=== PATIENT | female | born 1960 | race Caucasian/White ===

== ENCOUNTER 2020-10-27 15:42 | Outpatient (CLI) | payer OTHER, SELFPAY ==
--- NOTE | ~2020-10-27 | MM_ITS ---
EXAMINATION: MM screening baljinder BI w tiffany HISTORY: Screening mammogram TECHNIQUE: Craniocaudal and mediolateral oblique 3-D tomosynthesis images were obtained and synthetic 2-D images were generated. CAD analysis was submitted and interpreted. COMPARISON: 09/09/2019, 06/04/2018, 02/20/2017, 02/18/2016 bilateral digital screening mammogram examina tions BREAST PARENCHYMAL COMPOSITION: There are scattered areas of fibroglandular density. FINDINGS: There is a biopsy marker on the right; history of prior bilateral benign breast biopsies. There are numerous calcifications in both breasts. No malignant calcifications are evident. There is no evidence of suspicious mass, calcification, or architectural distortion to suggest malig annita in either breast. There has been no suspicious interval change. IMPRESSION: 1. No mammographic evidence of malignancy. 2. Recommend routine screening mammography in one year. BI-RADS Category 2: Benign finding(s). Reviewed, dictated and finalized at location A. SHAKER
== END 2020-10-27 15:43 | disposition home or self-care (01) ==
PROVIDERS: PCP Internal Medicine; Visit Provider Obstetrics & Gynecology
DX: Z12.31 Encounter for screening mammogram for malignant neoplasm of breast (principal)
CPT/HCPCS: 77063; 77067

== ENCOUNTER 2020-12-20 14:31 | Outpatient (CLI) | payer OTHER, SELFPAY ==
--- NOTE | ~2020-12-20 | MR_ITS ---
EXAMINATION: MR lumbar spine wo/w con DATE: 12/20/2020 15:41 INDICATION: Lumbar spinal stenosis. TECHNIQUE: Magnetic resonance imaging (MRI) of the lumbar spine was performed without and with 14 mL MultiHance intravenous contrast. Sequences included sagittal T2-weighted FSE, sagittal T2-weighted FS FSE, and sagittal and axial T1-weighted FSE. Postcontrast sequences included axial T2-weighted FSE a nd axial and sagittal T1-weighted FS FSE. COMPARISON: Lumbar spine MRI 11/29/17 FINDINGS: Bone alignment is normal. There are Schmorl's nodes at most levels. There is mildly decreas ed disc height at L2-L3, L3-L4, and L4-L5. The distal spinal cord signal intensity is normal. The con us medullaris is at L1. There are cysts in the kidneys measuring up to 10 mm on the left. The followi ng disc levels are specifically discussed: L1-L2: The disc does not extend beyond the endplate margin. There is mild bilateral facet joint osteo arthritis. There is no neural foraminal stenosis. There is no central canal stenosis. L2-L3: The disc is bulging and has an annular fissure. There is mild bilateral facet joint osteoarthr itis. There is mild bilateral neural foraminal stenosis. There is mild central canal stenosis. L3-L4: The disc is bulging and has an annular fissure. There is mild bilateral facet joint osteoarthr itis. There is mild right and moderate left neural foraminal stenosis. There is mild central canal st enosis. L4-L5: The disc is bulging and has an annular fissure. There is severe bilateral facet joint osteoart hritis. There is moderate bilateral neural foraminal stenosis. There is mild central canal stenosis. L5-S1: The disc does not extend beyond the endplate margin. There is severe bilateral facet joint ost eoarthritis. There is mild bilateral neural foraminal stenosis. There is no central canal stenosis. IMPRESSION: 1. Moderate lumbar spondylosis, stable from 11/29/17. Reviewed, dictated and finalized at location A. CTOR COMMUNICATIONS
[2020-12-20 15:09] LABS: Estimated Glomerular Filt Rate > 60
== END 2020-12-20 14:32 | disposition home or self-care (01) ==
PROVIDERS: Family Provider Internal Medicine; PCP Internal Medicine; Visit Provider Obstetrics & Gynecology
DX: M48.061 Spinal stenosis, lumbar region without neurogenic claudication (principal); M47.896 Other spondylosis, lumbar region
CPT/HCPCS: 72158; A9577

== ENCOUNTER 2021-01-09 10:42 | Emergency (ER) | payer OTHER, SELFPAY ==
--- NOTE | ~2021-01-09 | XR_ITS ---
XR chest 2V DATE: 01/09/2021 11:11 INDICATION: Cough and congestion for 3 days. Smoker. TECHNIQUE: PA and lateral views COMPARISON: 02/12/2019 CT pulmonary scan 02/16/2019 portable AP chest FINDINGS: Heart size is normal. No hilar or mediastinal enlargement. The lungs are hyperinflated but clear of infiltrate or consolidation. No pleural effusion or pulmonar y vascular congestion or pneumothorax. Diffuse osteopenia Status post cholecystectomy IMPRESSION: Bilateral hyperinflation consistent with COPD No active cardiopulmonary disease Reviewed, dictated and finalized at location A. ANCE OFFICER
[2021-01-09 10:50] VITALS: BP 145/97; PULSE 82; RESP 16; TEMP 37.5; O2SAT 100
--- NOTE | 2021-01-09 10:59 | ED.GENADULT ---
HPI - General Adult General Chief complaint: Upper Respiratory Infection Stated complaint: headache/diarrhea/nausea/chest congestion/sinus Source: patient Mode of arrival: ambulatory Limitations: no limitations History of Present Illness HPI narrative: Patient presents for evaluation and treatment of respiratory symptoms for the last 2 days. She reports sinus congestion, nonproductive cough, shortness of breath at rest and with exertion, all fever of approximately 100.1 ?F. She has also experienced nausea and diarrhea. She works at [employer] and had Covid PCR testing done 2 days ago which resulted is negative. She does smoke approximately 1 pack/day but states it is difficult to smoke at this time secondary to her symptoms. She did not receive a Covid vaccination. She recently cared for one pt that was COVID positive denies any other identified recent sick contacts. No additional complaints or concerns. Related Data Home Medications Medication Instructions Recorded Confirmed alprazolam 01/09/21 Allergies Allergy/AdvReac Type Severity Reaction Status Date / Time No Known Allergies Allergy Verified 02/16/19 08:23 Review of Systems Review of Systems: Narrative: CONSTITUTIONAL: Reports fever. Denies, chills, or sweats. EYES: Denies visual changes, redness, or discharge. ENT: Reports sinus congestion. Denies sore throat, or otalgia. CARDIOVASCULAR: Denies chest pain, palpitations, or edema. RESPIRATORY: Reports nonproductive cough and mild shortness of breath GASTROINTESTINAL: Reports nausea and diarrhea. Denies vomiting and abdominal pain. GENITOURINARY: Denies dysuria or hematuria. SKIN: Denies rash or itching. MUSCULOSKELETAL: Denies back pain, joint pain, or myalgia. NEUROLOGIC: Denies headache, numbness, dizziness, or weakness. PSYCHIATRIC: Denies anxiety or depression. [facility] Past Medical History Medical History Anxiety History of tobacco use Surgical History Surgical History H/O: hysterectomy History of cholecystectomy Family History Family History Father Cirrhosis Other Cerebrovascular accident Family history of alcoholism Family history of cardiovascular disease Family history of malignant neoplasm Family history of malignant neoplasm of ovary Social History Social History (Updated 01/09/21 @ 11:03 by STACEY Cage, JOSE ELIAS) Smoking packs per day: 1 Smoking cigarettes per day: 20.0 Smoking status: Current every day smoker Tobacco type: cigarettes Alcohol intake: never Substance use: never Living arrangements: with family 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 HEAD: Normocephalic, atraumatic. EYES: PERRLA and EOMI. ENT: Nares clear, no rhinorrhea or epistaxis. Mucous membranes moist. Oropharynx without tonsillar hypertrophy exudate or other lesions. Bilateral TMs pearly cunningham nonbulging NECK: Supple. No adenopathy or masses. No carotid bruits or JVD CHEST: Clear to auscultation. No respiratory distress. No wheezes rales or rhonchi HEART: Regular rate and rhythm. No murmur heard. Normal peripheral pulses. ABDOMEN: Soft, nontender, nondistended, normal active bowel sounds. EXTREMITIES: Normal range of motion. No edema. SKIN: Warm, dry, no rash. NEURO: No focal deficits. Alert and oriented x3. PSYCH: Normal mood and affect. Course Course Emergency Course: This is a 60-year-old female with history of tobacco use who presents with 2-day history of respiratory symptoms. Chest x-ray was consistent with changes related to COPD. Influenza was negative. Covid nega
[2021-01-10 19:35] LABS: SARS-CoV-2 RNA PCR Negative
== END 2021-01-09 11:57 | disposition home or self-care (01) ==
PROVIDERS: Emergency Provider Nurse Practitioner; PCP Internal Medicine
DX: B34.9 Viral infection, unspecified (principal); Z20.822 Contact with and (suspected) exposure to COVID-19; F17.210 Nicotine dependence, cigarettes, uncomplicated; F41.9 Anxiety disorder, unspecified
CPT/HCPCS: 71046; 87426; 87804; 99213; C9803; G0463; U0003; U0005

== ENCOUNTER 2021-05-05 15:37 | Outpatient (CLI) | payer OTHER, SELFPAY ==
--- NOTE | ~2021-05-05 | XR_ITS ---
EXAMINATION: XR shoulder LT min 2V DATE: 05/05/2021 15:57 INDICATION: Left shoulder pain. TECHNIQUE: 4 views of left shoulder were obtained. COMPARISON: None. FINDINGS: Bone alignment is normal. No fracture. Glenohumeral joint is normal. There is mild acromioc lavicular joint osteoarthritis. IMPRESSION: 1. Mild acromioclavicular joint osteoarthritis. Reviewed, dictated and finalized at location A.
== END 2021-05-05 15:38 | disposition home or self-care (01) ==
PROVIDERS: PCP Internal Medicine; Visit Provider Internal Medicine
DX: M19.012 Primary osteoarthritis, left shoulder (principal)
CPT/HCPCS: 73030

== ENCOUNTER 2021-08-22 11:22 | Emergency (ER) | payer OTHER, SELFPAY ==
--- NOTE | ~2021-08-22 | XR_ITS ---
EXAMINATION: XR chest 1V portable EXAM DATE: 08/22/2021 12:45 INDICATION: Cough and chest pain. TECHNIQUE: Portable AP frontal chest x-ray was obtained. Comparison is made to prior examination from 01/09/2021. FINDINGS: The lungs are clear. There are no pleural effusions. The cardiomediastinal silhouette is within normal limits. There is no pneumothorax suspected. The bones and soft tissues are unremarkab le. There is no significant interval change. There are cholecystectomy clips. IMPRESSION: No acute cardiopulmonary findings. Reviewed, dictated and finalized at location A.
[2021-08-22 11:25] VITALS: BP 158/80; PULSE 65; RESP 20; TEMP 36.7; O2SAT 99
--- NOTE | 2021-08-22 11:35 | ECG_ITS ---
Measurements Intervals [place] Rate: 68 P: 68 ME: 126 QRS: 88 QRSD: 86 T: 53 QT: 396 QTc: 424 Interpretive Statements SINUS RHYTHM MINIMAL Q WAVES- INFERIOR LEADS BORDERLINE ST ABNORMALITY- ANTEROLAT/INF LEADS BORDERLINE ECG Electronically Signed On 08-22-2021 13:53:18 CDT by Sadiq Arias D.O.
[2021-08-22 12:07] LABS: Basophils Absolute Auto 0.07 K/mm3 (0.00-0.10); Basophils Percent Auto 0.6 % (0.0-1.0); Eosinophils Absolute Auto 0.07 K/mm3 (0.02-0.50); Eosinophils Percent Auto 0.6 % (1.0-6.0); Hematocrit 41.2 % (35.0-49.0); Hemoglobin 13.8 g/dL (12.0-15.0); Immature Granulocyte Absolute 0.05 K/mm3 (0.00-0.00); Immature Granulocyte Percent A 0.4 % (0.0-0.0); Immature Platelet Fraction Pct 4.1 % (1.0-7.0); Lymphocytes Percent Auto 28.6 % (18.0-42.0); Mean Corpuscular HGB Conc 33.5 g/dL (32.0-36.0); Mean Corpuscular Volume 92.6 fL (78.0-102.0); Mean Platelet Volume 10.4 fl (9.2-11.8); Monocytes Absolute Auto 0.45 K/mm3 (0.10-0.90); Monocytes Percent Auto 3.8 % (2.0-11.0); Neutrophils Absolute Auto 7.9 K/mm3 (1.7-7.2); Platelet Count Result 316 K/mm3 (150-420); Red Blood Count 4.45 M/mm3 (4.20-5.40); Red Cell Distribution Width 12.7 % (11.6-14.4); White Blood Count 11.9 K/mm3 (4.8-10.8)
[2021-08-22] MEDS: NITROGLYCERIN SL 0.4 MG TABLET SUBLINGUAL (12:14)
[2021-08-22] MEDS: SODIUM CHLORIDE 0.9% IV 500 ML 999 ML IV CONT (12:16)
[2021-08-22] MEDS: ASPIRIN 325 MG ENTERIC TABLET PO (12:16)
[2021-08-22] MEDS: ONDANSETRON INJ 4 MG/2 ML VIAL IV PUSH (12:17)
[2021-08-22 12:26] LABS: SARS-CoV-2 Ag Negative (Negative)
[2021-08-22] MEDS: MORPHINE SULFATE (*CRX) 2 MG/ML INJ IV PUSH (12:34)
[2021-08-22 12:38] LABS: Alanine Aminotransferase 25 U/L (14-59); Alkaline Phosphatase 95 U/L (46-116); Anion Gap 12 mmol/L (8-16); Aspartate Amino Transferase 19 U/L (15-37); Bilirubin,Total 0.3 mg/dL (0.00-1.00); Blood Urea Nitrogen 11 mg/dL (7-18); Calcium 9.3 mg/dL (8.5-10.1); Carbon Dioxide 24 mmol/L (21-32); Chloride 106 mmol/L (98-108); Estimated CRCL calculation 67 ml/min; Estimated Glomerular Filt Rate > 60; Glucose 99 mg/dL (70-99); Osmolality Calculated 293 mOsm/kg (285-295); Potassium 4.1 mmol/L (3.5-5.1); Sodium 142 mmol/L (136-145); Total Protein 7.4 g/dL (6.4-8.2); Troponin I 4.8 ng/L (0.00-60.4)
[2021-08-22 12:53] LABS: Add Urine Microscopic? YES; Appearance Urine Clear (Clear); Bilirubin Urine Negative (Negative); Blood Urine Negative (Negative); Color Urine Light Yellow (Yellow); Glucose Urine UA Negative (Negative); Ketones Urine Negative (Negative); Leukocyte Esterase Ur Trace (Negative); Nitrate Urine Negative (Negative); Protein Urine Negative (Negative); Specific Grav Ur <= 1.005 (1.010-1.020); Urobilinogen Urine 0.2 mg/dL (0.2-1.0); pH Urine 6.5 (5.0-8.0)
[2021-08-22 12:58] LABS: RBC Urine None seen /hpf (0-2); WBC Urine 0-3 /hpf (0-3)
[2021-08-22 12:58] LABS: NT Pro B Type Natriuretic Pept 85 pg/mL (0-125)
[2021-08-22 12:59] LABS: Bacteria Urine Trace /hpf; Squamous Epithelial Cell Urine Rare /hpf (Few)
[2021-08-22 13:05] VITALS: BP 134/72; PULSE 62; RESP 18; TEMP 36.6; O2SAT 100
--- NOTE | 2021-08-22 13:51 | ED.CHESTPAIN ---
HPI - Chest Pain General Chief Complaint: Chest Pain Stated Complaint: tightness in chest, + Covid exposure Time Seen by Provider: 08/22/21 11:26 Source: patient and RN notes reviewed Mode of arrival: ambulatory Limitations: no limitations History of Present Illness MD complaint: chest pain and other (mild dizziness and nausea. no acute SOB, fever or GI loss.) Onset (ago): day(s) (1) Timing of current episode: episodic Prior episodes: No Onset: during rest Pain location: left chest Pain radiation: left shoulder Severity: mild Pain scale (0-10): 5 Quality: tightness and heaviness Relieving factors: nothing Exacerbating factors: nothing Associated symptoms: nausea Treatment prior to arrival: none Risk Factors Thoracic aortic dissection risk factors: none Related Data Home Medications Medication Instructions Recorded Confirmed alprazolam 0.5 mg PO BID 01/09/21 08/22/21 Allergies Allergy/AdvReac Type Severity Reaction Status Date / Time No Known Allergies Allergy Verified 08/22/21 11:41 Review of Systems Review of Systems: All systems reviewed & are unremarkable except as noted in HPI and below Cardiovascular: Cardiovascular: Reports chest pain Neurologic: Reports dizziness PMFSH Past Medical History Medical History Anxiety Chest pain Gastritis History of tobacco use Surgical History Surgical History H/O: hysterectomy History of cholecystectomy Family History Family History Father Cirrhosis Other Cerebrovascular accident Family history of alcoholism Family history of cardiovascular disease Family history of malignant neoplasm Family history of malignant neoplasm of ovary Social History Social History Smoking packs per day: 1 Smoking cigarettes per day: 20.0 Smoking status: Current every day smoker Tobacco type: cigarettes Alcohol intake: never Substance use: never 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 Gender identity (if verbalized by the patient): Female Sexual Orientation (if Verbalized by the Patient): Straight or Heterosexual Spiritual care concerns: No Exam Const: General: no acute distress Nutritional Appearance: well nourished Orientation/consciousness: patient oriented x3 HENMT: Ears: external ears normal and TM's normal bilaterally General nose exam: Normal external nose present and Normal nares present Mouth: Yes moist mucous membranes Eyes: Conjunctivae: conjunctivae normal Pupils: Equal, round and reactive pupils present EOM: EOMs intact bilaterally Neck: Neck: normal visual inspection and no lymphadenopathy Chest: Chest palpation & inspection: normal inspection of the chest Resp: Effort & Inspection: normal respiratory effort Auscultation: clear to auscultation bilaterally Cardio: Rate: regular rate Rhythm: regular rhythm GI: GI Palp: Yes Soft to palpation and No Tenderness to palpation present (GI) : General: Yes no CVA tenderness Back/Spine/Pelvis: Back: no CVA tenderness Skin: General skin exam: normal color Rashes: no rashes Neuro: General: patient oriented x3, moves all extremities, no meningeal signs, no focal motor deficits and CN's II-XI intact bilaterally Extrem: General: normal to inspection and no pedal edema Psych: Appearance: grossly normal and well kempt Mental Status: mental status grossly normal Affect: normal affect Attitude: cooperative Thought content: Yes Normal thought content present Course Course Emergency Course: Pt had less chest pain, nausea and dizziness in the ED. VSS. Home, see discharge orders. Reevaluation(s) Reevaluation #1: Mild residual chest pain txed with IV morphine. Date: 08/22/21 Time: 12:22 Vital Signs Vital signs: Vital Signs Temperature 36.7 C 08/22/21 11:25 Pulse Rate 65 08/22/21 11:2
[2021-08-22 13:58] VITALS: BP 125/80; BP 147/84; PULSE 60; PULSE 65; RESP 20; TEMP 36.6; O2SAT 100
[2021-08-22 14:26] LABS: Troponin I < 4.0 ng/L (0.00-60.4)
== END 2021-08-22 14:06 | disposition home or self-care (01) ==
PROVIDERS: Emergency Provider Emergency Medicine; PCP Internal Medicine
DX: R07.9 Chest pain, unspecified (principal); K29.70 Gastritis, unspecified, without bleeding; N39.0 Urinary tract infection, site not specified; Z20.822 Contact with and (suspected) exposure to COVID-19
CPT/HCPCS: 36415; 71045; 80053; 81001; 83880; 84484; 85025; 85055; 87426; 93005; 96374; 96375; 99283; 99284; A9270; C9803; J2270; J2405; J7040

== ENCOUNTER 2021-10-10 08:55 | Outpatient (CLI) | payer OTHER, SELFPAY ==
--- NOTE | 2021-10-10 | EST_ITS ---
Patient Info Name: Brianna Chi Age: 61 years : 1960 Gender: Female Ht: 63 in Wt: 163 lbs BSA: 1.84 m2 Exam Date: 10/10/2021 10:06 AM Exam Location: [facility] Stress Patient Status: Outpatient Admit Date: 10/10/2021 Staff Ordering Physician: Ray Howard MD Attending Provider: Ray Howard MD Exercise Technologist: Diana Franco RDCS Exercise Physician: Elmo Oneal MD Exam Type: CA stress test treadmill w NM Study Info Indications R07.89 - Other chest pain A treadmill exercise stress test was performed. Summary 1. Please correlate with nuclear medicine images, reported separately. 2. Hypertensive BP response to exercise. 3. Non-diagnostic ECG changes with exercise which does not meet strict criteria for ischemia. 4. Poor exercise capacity for age. Protocol: [facility] Stress ECG Details Stage: REST Duration (min): 0 min : 52 sec Speed (mph): 0.0 Grade (%): 0 HR (bpm): 67 SBP (mmHg): 142 DBP (mmHg): 81 METS: --- Stage: REST Duration (min): 13 min : 14 sec Speed (mph): 0.0 Grade (%): 0 HR (bpm): 74 SBP (mmHg): 142 DBP (mmHg): 81 METS: --- Stage: STAGE 1 Duration (min): 1 min : 0 sec Speed (mph): 1.7 Grade (%): 10 HR (bpm): 100 SBP (mmHg): 142 DBP (mmHg): 81 METS: --- Stage: STAGE 1 Duration (min): 2 min : 0 sec Speed (mph): 1.7 Grade (%): 10 HR (bpm): 121 SBP (mmHg): 142 DBP (mmHg): 81 METS: --- Stage: STAGE 1 Duration (min): 3 min : 0 sec Speed (mph): 1.7 Grade (%): 10 HR (bpm): 138 SBP (mmHg): 214 DBP (mmHg): 114 METS: --- Stage: RECOVERY Duration (min): 0 min : 59 sec Speed (mph): 0.0 Grade (%): 0 HR (bpm): 134 SBP (mmHg): 214 DBP (mmHg): 114 METS: --- Stage: RECOVERY Duration (min): 1 min : 59 sec Speed (mph): 0.0 Grade (%): 0 HR (bpm): 111 SBP (mmHg): 192 DBP (mmHg): 105 METS: --- Stage: RECOVERY Duration (min): 2 min : 59 sec Speed (mph): 0.0 Grade (%): 0 HR (bpm): 99 SBP (mmHg): 193 DBP (mmHg): 95 METS: --- Stage: RECOVERY Duration (min): 3 min : 59 sec Speed (mph): 0.0 Grade (%): 0 HR (bpm): 93 SBP (mmHg): 193 DBP (mmHg): 95 METS: --- Stage: RECOVERY Duration (min): 4 min : 59 sec Speed (mph): 0.0 Grade (%): 0 HR (bpm): 88 SBP (mmHg): 170 DBP (mmHg): 91 METS: --- Stage: RECOVERY Duration (min): 5 min : 17 sec Speed (mph): 0.0 Grade (%): 0 HR (bpm): 84 SBP (mmHg): 170 DBP (mmHg): 91 METS: --- Rest HR: 74 bpm Peak HR: 139 bpm Rest Sys BP: 142 mmHg Peak Sys BP: 214 mmHg Max Pred HR: 158 bpm % Max Pred HR: 88 % Target HR: 134 bpm Max RPP: 29,746 bpm*mmHg Ross Score: -2 Target HR Summary: Patient's target heart rate was achieved BP Response: Patient exhibited a hypertensive response with stress Termination Reason: Dyspnea, Fatigue Car
--- NOTE | ~2021-10-10 | NM_ITS ---
EXAMINATION: NM stress w perf spect multi DATE: 10/10/2021 12:25 INDICATION: Chest pressure. TECHNIQUE: Rest images were obtained following intravenous administration of 10.7 mCi Tc99m tetrofosm in (Myoview). The patient performed an exercise activity. At peak exercise, 33.7 mCi Tc99m tetrofosmi n (Myoview) was administered intravenously, and stress images were obtained. Data was reconstructed i nto short axis and horizontal and vertical long axis SPECT images. Gated SPECT images were also obtai long. COMPARISON: Myocardial perfusion imaging 01/03/2011 FINDINGS: There is no definite reversible or fixed perfusion abnormality to suggest ischemia or infar ction. There is no segmental wall motion abnormality. Left ventricular ejection fraction measures > 70%. IMPRESSION: 1. No definite ischemia or infarct. 2. Normal left ventricular ejection fraction measuring >70%. Reviewed, dictated and finalized at location A. CEMENTER
== END 2021-10-10 08:56 | disposition home or self-care (01) ==
LOC: ANHCARD 08:59
PROVIDERS: PCP Internal Medicine; Visit Provider Internal Medicine Cardiovascular Disease
DX: R07.89 Other chest pain (principal)
CPT/HCPCS: 78452; 93017; A9502

== ENCOUNTER 2021-10-12 13:56 | Outpatient (CLI) | payer OTHER, SELFPAY ==
--- NOTE | ~2021-10-12 | US_ITS ---
EXAMINATION: US art doppler w press LE BI DATE: 10/12/2021 14:49 INDICATION: Peripheral arterial occlusive disease. TECHNIQUE: Segmental pressures and plethysmographic and Doppler waveforms of the brachial and lower e xtremity arteries were obtained. COMPARISON: None. FINDINGS: Right and left brachial artery pressures of 129 mm Hg and 133 mm Hg, respectively, are concordant (no rmal difference <= 30 mmHg). The right and left high-thigh pressure indices were unable to be obtaine d due to inability to occlude the vessels. The right ankle-brachial index (VIRGINIA) is 1.16 (normal >= 0.9-1). The right great toe-brachial index (T BI) is 0.86 (normal >= 0.6-0.8). The right lower extremity segmental pressure gradients are normal (n ormal gradients <= 20-30 mmHg between adjacent levels on the same leg or the same levels on the two l egs). Arterial waveforms are biphasic with brisk systolic upstrokes throughout the arteries of the ri ght lower limb. The left VIR[place]IA is 1.26. The left TBI is 0.89. The left lower extremity segmental pressure gradients are normal. Arterial waveforms are biphasic with brisk systolic upstrokes throughout the arteries of the left lower limb. IMPRESSION: 1. Normal VIRGINIA's and TBI's bilaterally. No significant occlusive disease. Reviewed, dictated and finalized at location A. MACHINE OPERATOR PRODUCTION
== END 2021-10-12 13:57 | disposition home or self-care (01) ==
LOC: ANHIMG 13:59
PROVIDERS: PCP Internal Medicine; Visit Provider Internal Medicine Cardiovascular Disease
DX: I73.9 Peripheral vascular disease, unspecified (principal)
CPT/HCPCS: 93923

== ENCOUNTER 2021-12-07 15:46 | Outpatient (CLI) | payer OTHER, SELFPAY ==
--- NOTE | ~2021-12-07 | MM_ITS ---
EXAMINATION: MM screening baljinder BI w tiffany HISTORY: Screening TECHNIQUE: Craniocaudal and mediolateral oblique 3-D tomosynthesis images were obtained and synthetic 2-D images were generated. CAD analysis was submitted and interpreted. COMPARISON: Comparison to multiple prior studies sequentially, with oldest reviewed study dated 06/07. BREAST PARENCHYMAL COMPOSITION: There are scattered areas of fibroglandular density. FINDINGS: No significant change to bilateral benign-appearing breast calcifications. There is no evid ence of suspicious mass, calcification, or architectural distortion to suggest malignancy in either b reast. There has been no suspicious interval change. IMPRESSION: 1. No mammographic evidence of malignancy. 2. Recommend routine screening mammography in one year. BI-RADS Category 2: Benign finding(s). Reviewed, dictated and finalized at location A. TRUSS DETAILER
== END 2021-12-07 15:47 | disposition home or self-care (01) ==
LOC: ANHIMG 15:47
PROVIDERS: PCP Internal Medicine; Visit Provider Obstetrics & Gynecology
DX: Z12.31 Encounter for screening mammogram for malignant neoplasm of breast (principal)
CPT/HCPCS: 77063; 77067

== ENCOUNTER 2022-10-14 09:22 | Emergency (ER) | payer OTHER, SELFPAY ==
[2022-10-14 09:25] VITALS: BP 144/80; PULSE 61; RESP 16; TEMP 36.4; O2SAT 99
--- NOTE | 2022-10-14 09:44 | ED.ABDPAIN ---
HPI - Abdominal Pain General Chief Complaint: Abdominal Pain Stated Complaint: Pain in stomache severe Time Seen by Provider: 10/14/22 09:27 Source: patient Mode of arrival: ambulatory Limitations: no limitations History of Present Illness HPI narrative: 62-year-old female a history of TMJ, anxiety, IBS, GERD, status post hysterectomy, status post is cholecystectomy, anxiety presents to the ER with -- epigastric abdominal pain since yesterday. Pain started after she had 2 beers. Patient took antacid and Dolores[place] without any relief. Pain is rated a 7/10. No radiation of pain. Pain is continuous. No exacerbating or relieving factors. She has had similar pain in the past. She had an upper GI endoscopy many years ago. no nausea/ vomiting. No fever MD elicited complaint: abdominal pain Pertinent past history: gastritis Onset (ago): day(s) ( Started yesterday) Pain Consistency: constant Location: epigastric Pain scale (0-10): 7 Radiation: none Migration to: no migration Exacerbating factors: nothing Relieving factors: nothing Associated symptoms: denies other symptoms Related Data Patient : No Home Medications Medication Instructions Recorded Confirmed alprazolam 0.5 mg tablet 0.5 mg PO BID 01/09/21 10/14/22 Allergies Allergy/AdvReac Type Severity Reaction Status Date / Time No Known Allergies Allergy Verified 09/05/22 14:58 Review of Systems Review of Systems: All systems reviewed & are unremarkable except as noted in HPI and below Constitutional: Constitutional: Reports as per HPI and Reports no additional constitutional complaints Eyes: Eyes: Reports as per HPI and Reports no additional eye complaints ENT: Reports system reviewed and no additional complaints, except as documented and Reports as per HPI Cardiovascular: Cardiovascular: Reports as per HPI and Reports no additional cardiovascular complaints Respiratory: Respiratory: Reports as per HPI and Reports no additional respiratory complaints Gastrointestinal: Gastrointestinal: Reports as per HPI, Reports no additional gastrointestinal complaints and Reports abdominal pain Genitourinary: Genitourinary: Reports no additional female genitourinary complaints and Reports as per HPI Musculoskeletal: Musculoskeletal: Reports no additional musculoskeletal complaints and Reports as per HPI Integumentary/Breasts: Skin/Breast: Reports system reviewed and no additional complaints, except as docu and Reports as per HPI Neurologic: Reports system reviewed and no additional complaints, except as documented and Reports as per HPI Psychiatric: Psychiatric: Reports no additional psychiatric complaints and Reports as per HPI Endocrine: Endocrine: Reports no additional endocrine complaints and Reports as per HPI Hematologic/Lymphatic: Hematologic/Lymphatic: Reports no additional hematologic/lymphatic complaints and Reports as per HPI Allergic/Immunologic: Allergic/Immunologic: Reports no additional allergic/immunologic complaints and Reports as per HPI [facility] Past Medical History Medical History Anxiety Chest pain Gastritis History of tobacco use Surgical History Surgical History H/O: hysterectomy History of cholecystectomy Family History Family History Father Cirrhosis Alcoholism Mother Alcoholism Cancer Hypertension Daughter Depression Grandparent Depression Other Cerebrovascular accident Family history of alcoholism Family history of cardiovascular disease Family history of malignant neoplasm Family history of malignant neoplasm of ovary Social History Social History Smoking packs per day: 1 Smoking cigarettes per day: 20.0 Smoking status: Current every day smoker Tobacco type: cigarettes Alcohol intake: former Substance use: never
--- NOTE | 2022-10-14 09:54 | ECG_ITS ---
Measurements Intervals [place] Rate: 54 P: 44 [place]: 132 QRS: 68 QRSD: 88 T: 36 QT: 443 QTc: 420 Interpretive Statements SINUS BRADYCARDIA BORDERLINE ECG COMPARED TO ECG 08/22/2021 11:26:09 SINUS BRADYCARDIA NOW PRESENT Electronically Signed On 10-14-2022 10:55:20 EARLY CHILDHOOD WORKER by Sadiq Arias D.O.
[2022-10-14 10:03] LABS: Basophils Absolute Auto 0.08 K/mm3 (0.00-0.10); Basophils Percent Auto 0.9 % (0.0-1.0); Eosinophils Absolute Auto 0.26 K/mm3 (0.02-0.50); Eosinophils Percent Auto 2.9 % (1.0-6.0); Hematocrit 39.3 % (35.0-49.0); Immature Granulocyte Absolute 0.03 K/mm3 (0.00-0.00); Immature Granulocyte Percent A 0.3 % (0.0-0.0); Lymphocytes Absolute Auto 2.92 K/mm3 (1.10-4.50); Lymphocytes Percent Auto 32.8 % (18.0-42.0); Mean Corpuscular HGB Conc 33.1 g/dL (32.0-36.0); Mean Corpuscular Hemoglobin 30.9 pg (27.0-31.0); Mean Corpuscular Volume 93.3 fL (78.0-102.0); Mean Platelet Volume 10.6 fl (9.2-11.8); Monocytes Absolute Auto 0.41 K/mm3 (0.10-0.90); Monocytes Percent Auto 4.6 % (2.0-11.0); Neutrophils Absolute Auto 5.2 K/mm3 (1.7-7.2); Neutrophils Percent Auto 58.5 % (50.0-70.0); Platelet Count Result 319 K/mm3 (150-420); Red Blood Count 4.21 M/mm3 (4.20-5.40); White Blood Count 8.9 K/mm3 (4.8-10.8)
[2022-10-14] MEDS: PANTOPRAZOLE 40 MG TABLET PO (10:07)
[2022-10-14] MEDS: HYDROcodone/acetaminophen (*CRX) 5-325 MG TABLET 1 TAB PO (10:07)
[2022-10-14 10:19] LABS: Partial Thromboplastin Time 25.5 SEC (23.90-30.70)
[2022-10-14 10:23] LABS: Alanine Aminotransferase 17 U/L (14-59); Albumin Level 3.7 g/dL (3.4-5.0); Alkaline Phosphatase 89 U/L (46-116); Anion Gap 7 mmol/L (8-16); Aspartate Amino Transferase 17 U/L (15-37); Bilirubin,Total 0.3 mg/dL (0.00-1.00); Blood Urea Nitrogen 10 mg/dL (7-18); Calcium 9.7 mg/dL (8.5-10.1); Carbon Dioxide 28 mmol/L (21-32); Chloride 106 mmol/L (98-108); Estimated CRCL calculation 60 ml/min; Estimated Glomerular Filt Rate > 60; Glucose 96 mg/dL (70-99); Lactic Acid Reflex 0.6 mmol/L (0.4-2.0); Lipase 89 U/L (73-393); Osmolality Calculated 291 mOsm/kg (285-295); Potassium 3.8 mmol/L (3.5-5.1); Sodium 141 mmol/L (136-145); Total Protein 7.2 g/dL (6.4-8.2)
[2022-10-14 10:24] LABS: Appearance Urine Clear (Clear); Bilirubin Urine Negative (Negative); Blood Urine Negative (Negative); Glucose Urine UA Negative (Negative); Ketones Urine Negative (Negative); Leukocyte Esterase Ur Trace (Negative); Nitrate Urine Negative (Negative); Protein Urine Negative (Negative); Specific Grav Ur <= 1.005 (1.010-1.020); Urobilinogen Urine 0.2 mg/dL (0.2-1.0)
[2022-10-14 10:30] LABS: Troponin I < 4.0 ng/L (0.00-60.4)
[2022-10-14 10:30] LABS: Add Urine Microscopic? YES; Color Urine Light Yellow (Yellow); Squamous Epithelial Cell Urine Occasional /hpf (Few); WBC Urine None seen /hpf (0-3)
[2022-10-14 10:56] VITALS: BP 140/81; PULSE 74; RESP 20; TEMP 36.7; O2SAT 98
== END 2022-10-14 11:06 | disposition home or self-care (01) ==
PROVIDERS: Emergency Provider Internal Medicine Critical Care Medicine; PCP Internal Medicine
DX: R10.13 Epigastric pain (principal); K29.70 Gastritis, unspecified, without bleeding; K21.9 Gastro-esophageal reflux disease without esophagitis
CPT/HCPCS: 36415; 80053; 81001; 83605; 83690; 84484; 85025; 85730; 93005; 99284; A9270

== ENCOUNTER 2023-01-23 15:42 | Outpatient (CLI) | payer OTHER, SELFPAY ==
--- NOTE | ~2023-01-23 | MM_ITS ---
EXAMINATION: MM screening baljinder BI w tiffany HISTORY: Screening mammogram TECHNIQUE: Craniocaudal and mediolateral oblique 3-D tomosynthesis images were obtained and synthetic 2-D images were generated. CAD analysis was submitted and interpreted. COMPARISON: 12/07/2021, 10/27/2020, 09/09/2019 bilateral screening mammogram examinations BREAST PARENCHYMAL COMPOSITION: There are scattered areas of fibroglandular density. FINDINGS: Biopsy marker on the right; history of prior bilateral benign breast biopsies. Scattered bilateral benign microcalcifications in benign arterial calcification.. There is no evidenc e of suspicious mass, calcification, or architectural distortion to suggest malignancy in either [address]. There has been no suspicious interval change. IMPRESSION: 1. No mammographic evidence of malignancy. 2. Recommend routine screening mammography in one year. BI-RADS Category 2: Benign finding(s). Reviewed, dictated and finalized at location A. ESTATE OPERATIONS MANAGER
== END 2023-01-23 15:43 | disposition home or self-care (01) ==
PROVIDERS: PCP Internal Medicine; Visit Provider Obstetrics & Gynecology
DX: Z12.31 Encounter for screening mammogram for malignant neoplasm of breast (principal)
CPT/HCPCS: 77063; 77067

== ENCOUNTER 2023-05-29 09:28 | Observation (INO) | payer OTHER, SELFPAY ==
[2023-05-29] VITALS (14 sets, daily range): BP systolic 109–169; BP diastolic 57–101; PULSE 57–78; RESP 15–25; TEMP 36.4–36.6; O2SAT 97–100; BMI 31.6
--- NOTE | ~2023-05-29 | CT_ITS ---
EXAMINATION: CTA brain carotid DATE: 05/29/2023 09:52 INDICATION: Left eye vision loss and headache TECHNIQUE: Computed tomographic angiography (CTA) of the head was performed without and with 100 mL O mnipaque-350 intravenous contrast. CTA of the neck was performed with intravenous contrast. The dose- length product was 1612.25 mGy-cm. Maximum intensity projection and volume rendered 3D-reconstruction s were created by the technologist on a separate workstation. Automated exposure control and iterativ e reconstruction technique were employed. COMPARISON: 07/16/2019 FINDINGS: HEAD CTA: There is no acute intraparenchymal hemorrhage. No evidence of mass lesion. No evidence of a cute infarction. There is an old infarct in the right midbrain. There is mild periventricular and sub cortical hypodensity probably related to small vessel ischemic disease. There is mild prominence of t he sulci and ventricles related to cerebral atrophy. Intracranial calcified cerebral atherosclerosis is noted. There are no extra-axial collections. There is no mass effect or midline shift. The orbits and soft tissues are unremarkable. The visualized sinuses and mastoid air cells are well aerated. There is no significant stenosis of the basilar artery or posterior cerebral arteries. There is no si gnificant stenosis of the intracranial internal carotid arteries or the anterior or middle cerebral a rteries. The anterior communicating artery and right posterior communicating arteries are normal. The left posterior communicating arteries hypoplastic. There is no aneurysm. NECK CTA: There is moderate cervical spondylosis. There is a 5 mm nodule of the left thyroid lobe. Th e submandibular and parotid glands are symmetric. There is no lymphadenopathy. There are no masses id entified. The airway is unremarkable. The superior mediastinum is unremarkable. There is 0% stenosis of the proximal right internal carotid artery relative to normal distal artery l umen diameter (NASCET criteria). There is 0% stenosis of the proximal left internal carotid artery re lative to normal distal artery lumen diameter. IMPRESSION: 1. No acute intracranial abnormality. Unremarkable head CTA. 2. 0% stenosis of the proximal right internal carotid artery relative to normal distal artery lumen d iameter (NASCET criteria). 3. 0% stenosis of the proximal left internal carotid artery relative to normal distal artery lumen di ameter. 4. Old infarct of the right midbrain, new since the comparison examination. As per stroke protocol, I called these results to the Emergency Department, and discussed with Dr. Obdulia Parada MD at 1005 hours on 05/29/2023. Reviewed, dictated and finalized at location A. IMPRESSION: 1. No acute intracranial abnormality. Unremarkable head CTA. 2. 0% stenosis of the proximal right internal carotid artery relative to normal distal artery lumen diameter (NASCET criteria). 3. 0% stenosis of the proximal left internal carotid artery relative to normal distal artery lumen diameter. 4. Old infarct of the right midbrain, new since the comparison examination. As per stroke protocol, I called these results to the Emergency Department, and discussed with Dr. Krishna Parada MD at 1005 hours on 05/29/2023.
--- NOTE | ~2023-05-29 | XR_ITS ---
EXAMINATION: XR chest 2V DATE: 05/29/2023 10:28 INDICATION: Vision change TECHNIQUE: PA and lateral views of the chest are obtained. COMPARISON: 08/22/2021 FINDINGS: The lungs are free of acute opacities. No pleural effusion or pneumothorax. The cardiomedia stinal silhouette is normal. There is moderate thoracic spondylosis. Surgical clips in the right uppe r quadrant are likely from prior cholecystectomy. IMPRESSION: 1. No acute cardiopulmonary abnormality. Reviewed, dictated and finalized at location A.
--- NOTE | ~2023-05-29 | MR_ITS ---
EXAMINATION: MR brain/brain stem wo/w con DATE: 05/30/2023 08:54 INDICATION: Stroke presenting with vision changes/pleural effusion and the TECHNIQUE: Magnetic resonance imaging (MRI) of the brain and brainstem was performed without and with 15 mL Multihance intravenous contrast. Sequences included sagittal and axial T1-weighted SE, axial d iffusion-weighted FS SE, axial 3D SWAN, axial T2-weighted FLAIR, and axial T2-weighted FSE. Postcontr ast axial and coronal T1-weighted SE was obtained. Apparent diffusion coefficient (ADC) maps were cre ated. COMPARISON: Head CT dated 05/29/2023 FINDINGS: There are no areas of restricted diffusion to suggest acute infarction. Old lacunar infarct at the [facility]. No intracranial hemorrhage or abnormal intracranial mass lesion. There are scattere d areas of nonspecific increased T2-weighted signal intensity in the cerebral white matter, the most prominent situated in the left frontoparietal region. Single tiny focus of susceptibility artifact in the right frontal lobe likely resulting from old blood products as sequela of chronic microhemorrhag e. There are no intraparenchymal signal abnormalities seen on the other pulse sequences. The ventricl es are symmetric and normal in size. There are no abnormal extra-axial fluid collections. Flow voids are seen in the cerebral arteries on the T2-weighted sequences consistent with their expected patency . Mucosal thickening in the paranasal sinuses. Visualized orbits and soft tissues are unremarkable. T here are no areas of abnormal enhancement on the post contrast images. IMPRESSION: 1. Small right pontine old lacunar infarct. No acute intracranial process. 2. Mild scattered white matter T2 hyperintensity which remains within normal limits for age and likel y sequela of chronic small vessel ischemic disease. 2. Single tiny focus of susceptibility artifact in the right frontal lobe consistent with old blood p roducts related to chronic microhemorrhage. Reviewed, dictated and finalized at location B. IMPRESSION: 1. Small right pontine old lacunar infarct. No acute intracranial process. 2. Mild scattered white matter T2 hyperintensity which remains within normal li mits for age and likely sequela of chronic small vessel ischemic disease. 2. Single tiny focus of susceptibility artifact in the right frontal lobe consi stent with old blood products related to chronic microhemorrhage.
--- NOTE | 2023-05-29 09:32 | ECG_ITS ---
Measurements Intervals [place] Rate: 75 P: 23 ME: 142 QRS: 55 QRSD: 89 T: 31 QT: 400 QTc: 449 Interpretive Statements SINUS RHYTHM BASELINE ARTIFACT- I, II, AVL NORMAL ECG COMPARED TO ECG 10/14/2022 09:54:11 SINUS RHYTHM NOW PRESENT Electronically Signed On 05-29-2023 12:13:58 CDT by Sadiq Arias D.O.
--- NOTE | 2023-05-29 09:42 | ED.NEUROSD ---
HPI - Neuro Symptoms/Deficit General Chief Complaint: Suspected CVA Stated Complaint: Blurry vision Time Seen by Provider: 05/29/23 09:31 History of Present Illness HPI Narrative: Patient is a 63-year-old female who presents ER with sudden onset vision loss. Its in the left eye. It occurred around 9 AM. She reports she started having posterior headache near the neck when the vision loss occurred. She has no facial weakness or numbness. No extremity weakness or numbness. No history of CVA. She feels like there is black spots in the central part of her vision that sometimes float around. She has no pain in her eye. She denies any trauma. Related Data Home Medications Medication Instructions Recorded Confirmed alprazolam 0.5 mg tablet 0.5 mg PO BID 01/09/21 10/14/22 cyclobenzaprine 5 mg tablet mg 05/29/23 Allergies Allergy/AdvReac Type Severity Reaction Status Date / Time No Known Allergies Allergy Verified 05/29/23 10:36 Review of Systems Review of Systems: All systems reviewed & are unremarkable except as noted in HPI and below Constitutional: Constitutional: Denies chills and Denies fever(s) Eyes: Eyes: Reports change in vision, Denies diplopia, Denies loss of peripheral vision, Reports loss of vision, Denies eye pain and Denies seeing flashes ENT: Denies dizziness and Reports headache(s) Cardiovascular: Cardiovascular: Denies chest pain, Denies lightheadedness and Denies radiating jaw, neck or arm pain Respiratory: Respiratory: Denies cough, Denies dyspnea and Denies wheezing Gastrointestinal: Gastrointestinal: Denies abdominal pain, Denies diarrhea, Denies nausea and Denies vomiting Neurologic: Denies Abnormal speech present, Denies confusion, Reports headache(s), Denies focal weakness, Reports loss of vision, Denies numbness and Denies disequilibrium PMFSH Past Medical History Medical History Anxiety Chest pain Gastritis History of tobacco use Surgical History Surgical History H/O: hysterectomy History of cholecystectomy Family History Family History Father Cirrhosis Alcoholism Mother Alcoholism Cancer Hypertension Daughter Depression Grandparent Depression Other Cerebrovascular accident Family history of alcoholism Family history of cardiovascular disease Family history of malignant neoplasm Family history of malignant neoplasm of ovary Social History Social History Smoking packs per day: 1 Smoking cigarettes per day: 20.0 Smoking status: Current every day smoker Tobacco type: cigarettes Alcohol intake: former Substance use: never Living arrangements: with family Additional occupation/education comments: [employer] WORK[employer] Gender identity (if verbalized by the patient): Female Sexual Orientation (if Verbalized by the Patient): Straight or Heterosexual Spiritual care concerns: No Exam Narrative: GENERAL: Well-appearing, well-nourished, and in no acute distress. HEAD: Normocephalic, atraumatic. EYES: PERRLA and EOMI. patient reports visual field deficits centrally left eye. Reports missing pixels in her vision. ENT: Mucous membranes moist. NECK: Supple. CHEST: Clear to auscultation. No respiratory distress. HEART: Regular rate and rhythm. Normal peripheral pulses. ABDOMEN: Soft, nontender, nondistended. EXTREMITIES: Normal range of motion. No edema. SKIN: Warm, dry, no rash. NEURO: Alert and oriented x3. No upper or lower extremity drift. No facial droop. Normal speech and no expressive aphasia. Patient reports visual deficit. See NIH stroke scale. Sensation intact. PSYCH: Normal mood and affect. Course Course Emergency Course: 1038: Discussed case with Dr. Cottrell. Recommends giving aspirin which has been done. Feels appropriate to keep the patient in the hospital as patie
[2023-05-29 09:45] LABS: Basophils Absolute Auto 0.1 K/mm3 (0.0-0.1); Basophils Percent Auto 0.8 % (0.2-1.2); Eosinophils Absolute Auto 0.1 K/mm3 (0-0.3); Hematocrit 42.7 % (37.0-47.0); Immature Granulocyte Absolute 0.05 K/mm3 (0.00-0.031); Immature Granulocyte Percent A 0.5 % (0-0.5); Lymphocytes Absolute Auto 3.37 K/mm3 (0.9-3.2); Lymphocytes Percent Auto 32.8 % (18.3-44.2); Mean Corpuscular HGB Conc 32.8 g/dl (32-36); Mean Corpuscular Hemoglobin 30.6 pg (26-34); Mean Corpuscular Volume 93.2 fl (80-100); Mean Platelet Volume 10.6 fl (7.4-10.4); Monocytes Absolute Auto 0.4 K/mm3 (0.1-0.6); Monocytes Percent Auto 4.2 % (2.6-8.5); Neutrophils Absolute Auto 6.3 K/mm3 (1.3-6.7); Neutrophils Percent Auto 60.7 % (45.5-73.1); Platelet Count Result 325 k/mm3 (150-375); Red Blood Count 4.58 M/mm3 (4.2-5.4); Red Cell Distribution Width 13.1 % (11.5-14.5); White Blood Count 10.3 K/mm3 (4.5-10.0)
[2023-05-29 09:51] LABS: Estimated Glomerular Filt Rate > 60
[2023-05-29 09:55] LABS: INR 0.9; Prothrombin Time 12.4 Seconds (11.1-14.7)
[2023-05-29 09:56] LABS: Partial Thromboplastin Time 27.7 SECONDS (22.3-36.8)
[2023-05-29 10:02] LABS: Alanine Aminotransferase 21 U/L (6-35); Albumin Level 4.7 g/dL (3.5-5.1); Alkaline Phosphatase 94 U/L (38-126); Anion Gap 9 mmol/L (8-16); Aspartate Amino Transferase 29 U/L (14-36); Bilirubin,Total 0.5 mg/dL (0.2-1.3); Blood Urea Nitrogen 12 mg/dL (7-17); Carbon Dioxide 25 mmol/L (22-30); Chloride 105 mmol/L (98-107); Estimated CRCL calculation 71 ml/min; Estimated Glomerular Filt Rate > 60; Glucose 104 mg/dL (65-110); Potassium 4.7 mmol/L (3.4-5.0); Sodium 139 mmol/L (137-145)
[2023-05-29 10:05] LABS: Troponin I < 0.012 ng/mL (0.000-0.034)
[2023-05-29] MEDS: ASPIRIN 81 MG CHEWABLE TABLET 324 MG PO (10:09)
[2023-05-29 10:49] LABS: Add Urine Microscopic? NO; Appearance Urine Clear (Clear); Bilirubin Urine Negative (Negative); Blood Urine Negative (Negative); Color Urine Yellow (Yellow); Glucose Urine UA Negative (Negative); Ketones Urine Negative (Negative); Leukocyte Esterase Ur Negative LEU/UL (Negative); Nitrate Urine Negative (Negative); Protein Urine Negative (Negative); Specific Grav Ur <= 1.005 (1.001-1.035); Urobilinogen Urine 0.2 mg/dL (<2.0)
--- NOTE | 2023-05-29 11:23 | PC.NURSE ---
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 At 11:20 another call was placed to Dr Zuniga she did answer and bluntly told me that she was not promotions team leader. I stated to Dr Zuniga that per our call list she was-I apologized to her and she hung up the phone . No communication about the promotions team leader doctor change until I call ICU and they faxed an updated schedule. Dr Franz was called at 11:23 with a return call @ 11:25
[2023-05-29] MEDS: HYDROcodone/acetaminophen (*CRX) 5-325 MG TABLET 1 TAB PO (13:46)
--- NOTE | 2023-05-29 14:31 | PM.IMHP ---
H&P: HPI History of Present Illness Date/Time: 05/29/23 14:30 Chief Complaint: Vision changes. Narrative: This is a very pleasant 63-year-old female smoker without significant medical history presented to the emergency department for evaluation of sudden onset vision changes this morning while at work. The patient provides the following history. Most mornings when she gets up she takes 2 Advils to help get her through the day due to joint aches and pains, more so in the back. She did not Advil this morning and a couple of hours after waking she developed a mild occipital headache. 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 After talking to the kindergarten prep teacher, she was directed to the emergency department for further workup. She continues to have these blind spots in her vision but they may be have improved somewhat. She is able to localize that is the right eye causing issue, reporting that she can see fine with her reading glasses on through the left eye when the right eye is closed. Vital signs were stable on arrival to the emergency department. CMP and CBC were really unremarkable. CT of the head and neck showed no acute intracranial abnormality, and unremarkable head CTA, and 0% stenosis of the bilateral proximal internal carotid arteries however there was an old infarct noted in the right mid brain which was new compared to the prior examination. She has no known history of and she does not recall ever having symptoms of a CVA. She has no history of cardiac dysrhythmia, thyroid disease, macular degeneration, retinal detachment, glaucoma, atypical migraines, or seizures. She denies red eye and eye pain. No vertigo, facial droop, difficulty speaking and swallowing, focal weakness, or paresthesias. Review of Systems Review of Systems: Twelve systems were reviewed and are negative except for as per HPI. 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 Tobacco use disorder Surgical History Surgical History (Updated 05/29/23 @ 14:39 by Valery Esteves PA-C) History of benign breast biopsy (06/26/18) History of bilateral salpingo-oophorectomy (09/01/03) History of cholecystectomy (2008) History of esophagogastroduodenoscopy (09/10/09) History of hysterectomy (1989) History of laparoscopy (11/21/13) History of stress incontinence procedure using tension free vaginal tape (11/21/13) Family History Family History Father Cirrhosis Alcoholism Mother Alcoholism Cancer Hypertension Daughter Depression Grandparent Depression Other Cerebrovascular accident Family history of alcoholism Family history of cardiovascular disease Family history of malignant neoplasm Family history of malignant neoplasm of ovary Social History Social History (Updated 05/29/23 @ 19:56 by Valery Esteves PA-C) Social History: Surrogate medical decision maker: Irineo Chi (spouse) or Jose Ariasoll (son). Code status: Full code. Smoking packs per day: 1 Smoking cigarettes per day: 20.0 Years smoked: 40 Smoking pack-years: 40.00 Smoking status: Current some day smoker Tobacco type: cigarettes Alcohol intake: current Substance use: never Lack of Transportation: No Lack of Food: Often True Current Housing: I Have Housing Concerned About Future Housing: No Difficulty Paying Gas/Electric Bills: No Difficulty Paying for Meds: No Currently Unemployed: No Education: High School Diploma/GED Difficulty w/ Childcare or Family Care: No Additional living arrangements comments: Lives with spouse in [place]
--- NOTE | 2023-05-29 14:56 | ADMGEN ---
This patient, Brianna Chi, was admitted to 2 Medical Room 257-01. Patient/family oriented to hospital policies and general routines including ID bracelet, bed and alarms, visiting hours, pain management, procedures, bathroom and other care routines, personal items, smoking policy, room service/diet, and visiting hours. Information on how to activate the Rapid Response Team has been discussed. Patient/Family are encouraged to report perceived risks to care and to ask questions if they do not understand what they are told or what they should do.
[2023-05-30] VITALS (7 sets, daily range): BP systolic 129–131; BP diastolic 57–70; PULSE 54–93; RESP 16–18; TEMP 36.4–36.7; O2SAT 100
[2023-05-30] MEDS: ACETAMINOPHEN 325 MG TABLET 650 MG PO (04:53)
[2023-05-30 05:06] LABS: Hematocrit 41.2 % (37.0-47.0); Hemoglobin 13.2 g/dL (12.0-15.0); Mean Corpuscular Hemoglobin 30.3 pg (26-34); Mean Corpuscular Volume 94.7 fl (80-100); Mean Platelet Volume 10.6 fl (7.4-10.4); Platelet Count Result 288 k/mm3 (150-375); Red Blood Count 4.35 M/mm3 (4.2-5.4)
[2023-05-30 05:22] LABS: Anion Gap 7 mmol/L (8-16); Blood Urea Nitrogen 17 mg/dL (7-17); Calcium 9.4 mg/dL (8.4-10.2); Carbon Dioxide 26 mmol/L (22-30); Chloride 108 mmol/L (98-107); Cholesterol 220 mg/dL (0-200); Estimated CRCL calculation 70 ml/min; Estimated Glomerular Filt Rate > 60; Glucose 92 mg/dL (65-110); HDL Direct 65 mg/dL; Magnesium 2.2 mg/dL (1.6-2.3); Potassium 4.7 mmol/L (3.4-5.0); Sodium 141 mmol/L (137-145); Triglycerides 98 mg/dL (<150)
[2023-05-30 05:32] LABS: LDL Cholesterol Direct 102 mg/dL
--- NOTE | 2023-05-30 05:48 | PC.NURSE ---
CALLED INTO ROOM, PT STATES HIT 5TH DIGIT ON RIGHT FOOT ON DOOR. SMALL LACERATION NOTED, KARLA TEXICO NURSING SUPOERVISOR NOTIFIED AND CAME AND LOOKED AT INJURY. CLEANSED WITH SALINE AND BANDAID APPLIED
[2023-05-30 08:45] LABS: Glucose Point of Care 110 mg/dl (65-105)
[2023-05-30] MEDS: ASPIRIN 81 MG CHEWABLE TABLET PO (10:48)
[2023-05-30] MEDS: ALPRAZolam (*CRX) 0.5 MG TABLET 1 MG PO (10:48)
[2023-05-30] MEDS: ATORVASTATIN 40 MG TABLET PO (10:48)
--- NOTE | 2023-05-30 10:59 | PM.DS ---
DS: Summary Time Spent with Patient Time attestation: Total time spent providing and/or coordinating discharge services: DS: Data Data Completed and Pending Labs on day of discharge: Labs from last 24 hours 05/30/23 05/30/23 05/29/23 04:54 04:53 09:30 WBC 8.0 RBC 4.35 Hgb 13.2 Hct 41.2 MCV 94.7 MCH 30.3 MCHC 32.0 RDW 13.0 Plt Count 288 MPV 10.6 H Sodium 141 Potassium 4.7 Chloride 108 H Carbon Dioxide 26 Anion Gap 7 L BUN 17 Creatinine 0.70 Estim Creat Clear Calc 70 Estimated GFR > 60 Glucose 92 POC Capillary Glucose 110 H Calcium 9.4 Magnesium 2.2 Triglycerides 98 Cholesterol 220 H LDL Cholesterol Direct 102 HDL Direct 65 TSH (Reflex) 1.250 Imaging Radiologist's impression: MRI Brain: IMPRESSION: 1. Small right pontine old lacunar infarct. No acute intracranial process. 2. Mild scattered white matter T2 hyperintensity which remains within normal limits for age and likely sequela of chronic small vessel ischemic disease. 2. Single tiny focus of susceptibility artifact in the right frontal lobe consistent with old blood products related to chronic microhemorrhage. Discharge Plan Discharge Consulting providers: Kalani Cottrell Patient Instructions: How to Stop Smoking (DC) Discharge Medications: No Action alprazolam 0.5 mg tablet 1 mg PO BID cyclobenzaprine 5 mg tablet 5 mg PO PRN Patient Comments: Patient states that most of the time she breaks the pill in half and does not usually take the full 5mg. Date of admission: 05/29/23 11:34 Primary Care Provider: Srikanth Hernandez Admitting Provider: Efrain Franz Attending physician on admission: Romero Stevens Condition: Stable
--- NOTE | 2023-05-30 14:28 | WPDNEURCNPN ---
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 Left I discomfort visual phenomena but negative MRI of the brain to account for the stroke and also the CTA is negative, need to be evaluated by the orthotic finish grinding technician as an outpatient to rule out the possibility of the vitreous abnormalities. Considering the documented small vessel disease with lacunar stroke and possibility of microhemorrhage as per the MRI will continue aspirin 81 mg daily only 1 every other day with all the pros and cons of the abnormalities explain to the patient as well as to her with instruction to follow up for the MRI in 6 months to 1 year and also with the software engineer intern is to control the blood pressure on a regular basis. anti-lipid therapy should be continued and also she can follow in the Neurology office in 6 to 12 months. Consult date: 05/30/23 HPI: Brianna Chi is a 63 year old femaleHas been admitted to the hospital through the emergency room along with the complaints of posterior headaches and upper cervical discomfort but not associated with any weakness or numbness of the upper or lower extremities she specifically mentioned that the black spots in the central part of her vision were floating around. She has been taking alprazolam 0.5 mg b.i.d. and cyclobenzaprine 5 mg daily, she is not known to be allergic to any medications . She is currently everyday smoker the smoking cigarettes per day 20 but former alcohol intake, on initial exam in the emergency room she received aspirin and the night taking the tPA, her vital signs were normal, so as the routine labs and in addition CTA revealed no aneurysm or intracranial vessels involvement except the old infarct the right mid brain compared to the previous examination, subsequently she had the MRI of the brain which documented small right pontine old lacunar infarct and a single tiny focus of susceptibility artifact in the right frontal lobe consistent with the possibility of old blood products related to chronic microhemorrhage PMFSH Past Medical History Medical History (Updated 05/29/23 @ 14:43 by Valery Esteves PA-C) Anxiety Gastroesophageal reflux disease 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 Tobacco use disorder Surgical History Surgical History (Updated 05/29/23 @ 14:39 by Valery Esteves PA-C) History of benign breast biopsy (06/26/18) History of bilateral salpingo-oophorectomy (09/01/03) History of cholecystectomy (2008) History of esophagogastroduodenoscopy (09/10/09) History of hysterectomy (1989) History of laparoscopy (11/21/13) History of stress incontinence procedure using tension free vaginal tape (11/21/13) Family History Family History Father Cirrhosis Alcoholism Mother Alcoholism Cancer Hypertension Daughter Depression Grandparent Depression Other Cerebrovascular accident Family history of alcoholism Family history of cardiovascular disease Family history of malignant neoplasm Family history of malignant neoplasm of ovary Social History Social History (Updated 05/29/23 @ 19:56 by Valery Esteves PA-C) Social History: Surrogate medical decision maker: Irineo Chi (spouse) or Jose Díaz (son). Code status: Full code. Smoking packs per day: 1 Smoking cigarettes per day: 20.0 Years smoked: 40 Smoking pack-years: 40.00 Smoking status: Current some day smoker Tobacco type: cigarettes Alcohol intake: current Substance use: never Lack of Transportation: No Lack of Food: Often True C
--- NOTE | 2023-05-30 14:43 | ECHO_ITS ---
Patient Info Name: Brianna Chi Age: 63 years : 1960 Gender: Female Ht: 63 in Wt: 178 lbs BSA: 1.92 m2 HR: 93 bpm BP: 129 / 57 mmHg Heart Rhythm: Sinus Rhythm Technical Quality: Fair Exam Date: 05/30/2023 2:47 PM Exam Location: [facility] Pulmonary Exam Room: 257 Patient Status: Outpatient Admit Date: 05/29/2023 Staff Ordering Physician: Valery Esteves PA-C Transportation Maintenance Specialist: Aura Kirkland RDCS Attending Provider: Romero Stevens APRN Referring Physician: Danielito HENAO; Exam Type: CA echo doppler w bubble study Study Info Indications - STROKE SYMPTOMS Complete two-dimensional, color flow and Doppler transthoracic echocardiogram is performed with agitated saline. Contrast/Agitated Saline Contrast/Ag. Saline: Agitated Saline Amount: 20.00 ml Administered By: Aura Kirkland [facility] Existing IV Access: Yes Summary 1. Left ventricular chamber dimension is normal. 2. Left ventricular systolic function is normal, estimated at 60-65%. 3. There is mildly increased left ventricular wall thickness. 4. Right ventricular systolic function is normal. 5. Intact interatrial septum visualized by color flow and agitated saline imaging. Negative bubble study. Left Ventricle Left ventricular chamber dimension is normal. Left ventricular systolic function is normal, estimated at 60-65%. There is mildly increased left ventricular wall thickness. Right Ventricle Right ventricular chamber dimension is normal. Right ventricular systolic function is normal. Left Atria Left atrial chamber dimension is normal. Right Atria Right atrial chamber dimension is normal. Atrial Septum Intact interatrial septum visualized by color flow and agitated saline imaging. Negative bubble study. Aortic Valve The aortic valve is trileaflet. There is mild aortic valve sclerosis. There is no aortic valve stenosis. There is no aortic valve regurgitation. Pulmonic Valve The pulmonic valve is not well visualized. Mitral Valve The mitral valve has thickened leaflets. There is no mitral valve regurgitation. Tricuspid Valve There is trace tricuspid valve regurgitation. Pericardium/Pleural There is trivial pericardial effusion. Inferior Vena Cava Normal inferior vena cava with >50% collapse upon inspiration consistent with normal right atrial pressure, 3 mmHg. Aorta The aortic root size at the sinus of Valsalva is normal. Left Ventricular Outflow Tract Name Value Normal LVOT 2D LVOT Diameter 2.0 cm LVOT Doppler LVOT Peak Gradient 3 mmHg LVOT Mean Gradient 2 mmHg LVOT VTI 19 cm LVOT VTI/AV VTI Ratio 0.7 LVOT Stroke Volume 57 ml LVOT CO 10.9 l/min LVOT CI 5.7 l/min/m2 Pulmonic Valve Name Value Normal RVOT Doppler
--- NOTE | 2023-05-30 15:27 | PCCCNOTE ---
On 05/30/23, the student, [Leyla Sheffield], provided care and completed [facility] documentation on this patient. I have reviewed the student's documentation and agree with the findings.
[2023-05-30] MEDS: BACITRACIN OINTMENT 15 GM TUBE 1 APPLIC TOPICAL (15:44)
--- NOTE | 2023-05-30 15:44 | PM.DS ---
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 Patient is to follow-up with eye doctor for medical eye exam with couple days of discharge. No findings on to suspect stroke related visual changes. (2) Headache: Code(s): R51.9 - Headache, unspecified Status: Acute Assessment and Plan: Resolved without specific intervention. Likely related to taking home Advil dose prior to to work like she usually does. 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 Neurology recommended aspirin every other day and atorvastatin as well as clinic follow-up in a few weeks. (4) Tobacco use disorder: Code(s): F17.200 - Nicotine dependence, unspecified, uncomplicated Status: Acute Assessment and Plan: Discussed at length the need to stop smoking by use nicotine replacement. DS: Summary Hospital Course Reason for hospitalization: Patient was admitted to the hospital after CT scan showed area of old lacunar stroke in the setting new visual disturbance dot be a potential 2nd stroke. Hospital Course: This is a very pleasant 63-year-old female smoker without significant medical history presented to the emergency department for evaluation of sudden onset vision changes this morning while at work. The patient provides the following history. Most mornings when she gets up she takes 2 Advils to help get her through the day due to joint aches and pains, more so in the back. She did not Advil this morning and a couple of hours after waking she developed a mild occipital headache. 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 After talking to the medical billing and coding instructor, she was directed to the emergency department for further workup. She continues to have these blind spots in her vision but they may be have improved somewhat. She is able to localize that is the right eye causing issue, reporting that she can see fine with her reading glasses on through the left eye when the right eye is closed. Vital signs were stable on arrival to the emergency department. CMP and CBC were really unremarkable. CT of the head and neck showed no acute intracranial abnormality, and unremarkable head CTA, and 0% stenosis of the bilateral proximal internal carotid arteries however there was an old infarct noted in the right mid brain which was new compared to the prior examination. She has no known history of and she does not recall ever having symptoms of a CVA. She has no history of cardiac dysrhythmia, thyroid disease, macular degeneration, retinal detachment, glaucoma, atypical migraines, or seizures. She denies red eye and eye pain. No vertigo, facial droop, difficulty speaking and swallowing, focal weakness, or paresthesias. 05/30: Patient was seen this morning with no current complaints resolving to fully resolved visual disturbance no headache. Patient denies any weakness or any other complaints states that she is ready to go home. MRI showed old small lacunar stroke right pontine and very small chronic micro bleed right frontal lobe, neither of which would explain patient's visual symptoms. No other acute findings. The only complaint the patient has to add is that she susta
[2023-05-30] MEDS: TETANUS,DIPHTHERIA,AC PERTUSSIS ADULT (0.5 ML) BOOSTRIX IM (15:52)
== END 2023-05-30 16:20 | disposition home or self-care (01) ==
LOC: ANHED 13:02 → ANH2MED 13:42
PROVIDERS: Physician Assistant; Admitting Provider Internal Medicine; Emergency Provider Emergency Medicine; PCP Internal Medicine; Visit Provider Nurse Practitioner
DX: H53.9 Unspecified visual disturbance (principal); R51.9 Headache, unspecified; Z23 Encounter for immunization; F41.9 Anxiety disorder, unspecified; H40.9 Unspecified glaucoma; I35.8 Other nonrheumatic aortic valve disorders; K21.9 Gastro-esophageal reflux disease without esophagitis; K29.70 Gastritis, unspecified, without bleeding; F17.210 Nicotine dependence, cigarettes, uncomplicated; Z79.899 Other long term (current) drug therapy; Z86.73 Personal history of transient ischemic attack (TIA), and cerebral infarction without residual deficits
CPT/HCPCS: 36415; 70496; 70498; 70553; 71046; 80048; 80053; 80061; 81003; 82948; 83735; 84443; 84484; 85025; 85027; 85610; 85730; 90471; 90715; 93005; 93306; 96375; 99285; A9270; A9577; G0378; Q9967

== ENCOUNTER 2023-08-07 11:04 | Emergency (ER) | payer OTHER, SELFPAY ==
[2023-08-07 11:15] VITALS: BP 133/85; PULSE 70; RESP 16; TEMP 36.6; O2SAT 99
--- NOTE | 2023-08-07 11:19 | ED.URI ---
HPI - URI/Sore Throat General Chief Complaint: Upper Respiratory Infection Stated Complaint: Covid Source: patient and RN notes reviewed Mode of arrival: ambulatory Limitations: no limitations History of Present Illness HPI Narrative: Patient is a 63-year-old female who presents to the [facility] after having a positive at-home COVID test. Patient states that the test was so she is unsure of the accuracy of results. She states that she developed nasal congestion, scratchy throat, and ear fullness yesterday. She denies cough, shortness of breath, chest pain. Denies known fevers. Her respirations are unlabored. She does not appear in any acute distress. She reports past medical history of anxiety. Related Data Home Medications Medication Instructions Recorded Confirmed alprazolam 0.5 mg tablet 1 mg PO BID 01/09/21 08/07/23 Allergies Allergy/AdvReac Type Severity Reaction Status Date / Time No Known Allergies Allergy Verified 08/07/23 11:14 Review of Systems Review of Systems: CONSTITUTIONAL: Denies fever, chills, or sweats. EYES: Denies visual changes, redness, or discharge. ENT: Denies otalgia but reports ear fullness. Reports sore throat and nasal congestion. CARDIOVASCULAR: Denies chest pain, palpitations, or edema. RESPIRATORY: Denies cough or dyspnea. GASTROINTESTINAL: Denies abdominal pain, nausea, vomiting, or diarrhea. GENITOURINARY: Denies dysuria or hematuria. SKIN: Denies rash or itching. MUSCULOSKELETAL: Denies back pain, joint pain, or myalgia. NEUROLOGIC: Denies headache, numbness, or weakness. Pertinent positives per HPI. 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 Tobacco use disorder Surgical History Surgical History History of benign breast biopsy (06/26/18) History of bilateral salpingo-oophorectomy (09/01/03) History of cholecystectomy (2008) History of esophagogastroduodenoscopy (09/10/09) History of hysterectomy (1989) History of laparoscopy (11/21/13) History of stress incontinence procedure using tension free vaginal tape (11/21/13) Family History Family History Father Cirrhosis Alcoholism Mother Alcoholism Cancer Hypertension Daughter Depression Grandparent Depression Other Cerebrovascular accident Family history of alcoholism Family history of cardiovascular disease Family history of malignant neoplasm Family history of malignant neoplasm of ovary Social History Social History Social History: Surrogate medical decision maker: Irineo Chi (spouse) or Jose Díaz (son). Code status: Full code. Smoking packs per day: 1 Smoking cigarettes per day: 20.0 Years smoked: 40 Smoking pack-years: 40.00 Smoking status: Current some day smoker Tobacco type: cigarettes Alcohol intake: current Substance use: never Substance use type: does not use Lack of Transportation: No Lack of Food: Never True Current Housing: I Have Housing Concerned About Future Housing: No Difficulty Paying Gas/Electric Bills: YES Difficulty Paying for Meds: No Currently Unemployed: No Education: Trade/Vocational Certificate Difficulty w/ Childcare or Family Care: No Living arrangements: with family Additional living arrangements comments: Lives with spouse in [place]. 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 Gender identity (if verbalized by the patient): Female Spiritual care concerns: No Comments At the time of my signature, I reviewed and agree with the nursing
== END 2023-08-07 11:46 | disposition home or self-care (01) ==
PROVIDERS: Emergency Provider Nurse Practitioner; PCP Internal Medicine
DX: U07.1 COVID-19 (principal); F41.9 Anxiety disorder, unspecified; I25.2 Old myocardial infarction; F17.210 Nicotine dependence, cigarettes, uncomplicated; Z79.899 Other long term (current) drug therapy
CPT/HCPCS: 87426; 99213; C9803; G0463

== ENCOUNTER 2023-09-27 08:37 | Outpatient (CLI) | payer OTHER, SELFPAY ==
--- NOTE | ~2023-09-27 | DEXA_ITS ---
Bone Density Report Name: URBAN MICHAELS Age: 63 Sex: Female Ethnicity: White Date of : 1960 Indication: postmenopausal; screening for osteoporosis; parental hip fracture; height loss; hysterectomy; Referring Provider: JIMMY DE PAZ Study: Bone densitometry was performed. Exam Date: September 27, 2023 Accession number: [id number] Bone Density: Region BMD T-score Z-score Classification AP Spine(L1-L4) 1.044 0.0 1.7 Normal Femoral Neck (Left) 0.855 0.1 1.5 Normal Total Hip (Left) 0.859 -0.7 0.5 Normal Femoral Neck (Right) 0.758 -0.8 0.7 Normal Total Hip (Right) 0.928 -0.1 1.1 Normal Total Hip Mean 0.894 -0.4 0.8 Normal World Health Organization criteria for BMD impression classify patients as: Normal (T-score at or above -1.0), Osteopenia (T-score between -1.0 and -2.5), or Osteoporosis (T-score at or below -2.5). 10-year Fracture Risk: FRAX not reported because: All T-scores for Spine Total, Hip Total, Femoral Neck at or above -1.0 Clinical Information Provided by Patient: Parent has had a hip fracture Smokes Has the following medical conditions: Hysterectomy Patient maximum height was 63.5 Menopause Age: 30 Drinks caffeinated beverages Onset of menses at age 11 Number of children 2 Impression: The patient has normal bone mass. The patient has risk factors, including: parental hip fracture, smoking. Discussion: BONE DENSITY IS ABOVE THE MINIMUM DESIRABLE LEVEL AT ALL SKELETAL SITES TESTED. This patient?s bone mineral density is above the minimum desirable level (T-score -1.0 or better) at all sites measured. The patient should follow a healthful lifestyle (good nutrition with adequate calcium and vitamin D, and appropriate weight-bearing exercise). Follow-Up: Consider repeating this study in 5 years or sooner if there is some new clinical indication. Reported by: [facility] on 09/27/2023 9:35:00 AM. Reviewed, dictated and finalized at location AJosee BLACK
== END 2023-09-27 08:38 | disposition home or self-care (01) ==
LOC: ANHIMG 09:12
PROVIDERS: PCP Internal Medicine; Visit Provider Obstetrics & Gynecology
DX: N95.1 Menopausal and female climacteric states (principal); Z13.820 Encounter for screening for osteoporosis
CPT/HCPCS: 77080

== ENCOUNTER 2023-11-01 14:47 | Outpatient (CLI) | payer OTHER, SELFPAY ==
[2023-11-01 15:29] LABS: Appearance Urine Clear (Clear); Bacteria Urine None Seen /hpf; Bilirubin Urine Negative (Negative); Blood Urine Negative (Negative); Color Urine Yellow (Yellow); Glucose Urine UA Negative (Negative); Ketones Urine Trace mg/dL (Negative); Leukocyte Esterase Ur 1+ LEU/UL (Negative); Nitrate Urine Negative (Negative); Non Pathogenic Casts 0-2; Protein Urine Negative (Negative); Specific Grav Ur 1.022 (1.001-1.035); Squamous Epithelial Cell Urine Occasional /hpf (Few); WBC Urine 21-50 /hpf
[2023-11-01 15:34] LABS: Add Urine Microscopic? YES
== END 2023-11-01 14:48 | disposition home or self-care (01) ==
PROVIDERS: PCP Internal Medicine; Visit Provider Obstetrics & Gynecology
DX: R30.0 Dysuria (principal); R31.9 Hematuria, unspecified
CPT/HCPCS: 81001; 87086

== ENCOUNTER 2024-02-22 15:44 | Outpatient (CLI) | payer OTHER, SELFPAY ==
--- NOTE | ~2024-02-22 | MM_ITS ---
EXAMINATION: MM screening baljinder BI w tiffany HISTORY: Screening mammogram TECHNIQUE: Craniocaudal and mediolateral oblique 3-D tomosynthesis images were obtained and synthetic 2-D images were generated. CAD analysis was submitted and interpreted. COMPARISON: January 23, 2023, December 07, 2021, September 09, 2019 bilateral screening mammogram exami nations BREAST PARENCHYMAL COMPOSITION: There are scattered areas of fibroglandular density. FINDINGS: Biopsy marker on the right; history of prior benign bilateral breast biopsies. Scattered benign calcifications are noted bilaterally. There is no evidence of suspicious mass, calci fication, or architectural distortion to suggest malignancy in either breast. There has been no suspi cious interval change. IMPRESSION: 1. Benign findings No mammographic evidence of malignancy. 2. Recommend routine screening mammography in one year. BI-RADS Category 2: Benign finding(s). Reviewed, dictated and finalized at location A.
== END 2024-02-22 15:45 | disposition home or self-care (01) ==
LOC: ANHIMG 15:47
PROVIDERS: PCP Internal Medicine; Visit Provider Obstetrics & Gynecology
DX: Z12.31 Encounter for screening mammogram for malignant neoplasm of breast (principal)
CPT/HCPCS: 77063; 77067

== ENCOUNTER 2024-03-29 12:34 | Emergency (ER) | payer OTHER, SELFPAY ==
[2024-03-29] VITALS (40 sets, daily range): BP systolic 109–178; BP diastolic 61–97; PULSE 58–86; RESP 11–25; TEMP 36.3–37.1; O2SAT 91–99
--- NOTE | ~2024-03-29 | XR_ITS ---
EXAMINATION: XR chest 1V portable DATE: 03/29/2024 12:57 INDICATION: Chest pain and shortness of breath TECHNIQUE: frontal view of the chest was obtained. COMPARISON: Chest radiograph dated 05/29/2023 FINDINGS: The lungs remain clear with no focal airspace opacities, pulmonary edema, pleural effusion or pneumot horax. The cardiomediastinal silhouette is normal. Cholecystectomy clips in right upper quadrant. IMPRESSION: 1. No acute cardiopulmonary disease. Reviewed, dictated and finalized at location A.
--- NOTE | 2024-03-29 12:34 | ECG_ITS ---
SEE SCANNED COPY FOR CONFIRMED REPORT MTDD
--- NOTE | 2024-03-29 12:46 | ED.CHESTPAIN ---
HPI - Chest Pain General Chief Complaint: Chest Pain Stated Complaint: chest pain Time Seen by Provider: 03/29/24 12:46 Source: patient Mode of arrival: ambulatory Limitations: no limitations History of Present Illness HPI narrative: 64-year-old female, , smoker with a history of hypertension, dyslipidemia, migraine, anxiety,CVA with old brainstem infarct presents to the ER with a 1-1/2 hour history of -- substernal/left chest pain radiating to the left jaw and left upper extremity. -- Nausea without any vomiting. -- Lightheadedness and dizziness -- shortness of breath no prior episodes of chest pain. Denies any history of cardiac catheterization or stress test. Onset (ago): hour(s) (1.5 Hours ago) Timing of current episode: constant Prior episodes: No Onset: during rest Pain location: substernal and left chest Pain radiation: left arm and jaw/teeth Severity: moderate Pain scale (0-10): 7 Quality: aching Relieving factors: nothing Exacerbating factors: nothing Associated symptoms: nausea Treatment prior to arrival: none Risk Factors Coronary artery disease risk factors: smoking history, hyperlipidemia and hypertension Thoracic aortic dissection risk factors: longstanding hypertension Related Data On Oral Contraceptives: No Home Medications Medication Instructions Recorded Confirmed alprazolam 0.5 mg tablet 1 mg PO BID 01/09/21 03/29/24 Allergies Allergy/AdvReac Type Severity Reaction Status Date / Time No Known Allergies Allergy Verified 03/29/24 12:42 Review of Systems Review of Systems: All systems reviewed & are unremarkable except as noted in HPI and below Constitutional: Constitutional: Reports as per HPI and Reports no additional constitutional complaints Eyes: Eyes: Reports as per HPI and Reports no additional eye complaints ENT: Reports system reviewed and no additional complaints, except as documented and Reports as per HPI Cardiovascular: Cardiovascular: Reports as per HPI, Reports no additional cardiovascular complaints and Reports chest pain Respiratory: Respiratory: Reports as per HPI, Reports no additional respiratory complaints and Reports dyspnea Gastrointestinal: Gastrointestinal: Reports as per HPI and Reports nausea Genitourinary: Genitourinary: Reports no additional female genitourinary complaints Musculoskeletal: Musculoskeletal: Reports no additional musculoskeletal complaints Integumentary/Breasts: Skin/Breast: Reports system reviewed and no additional complaints, except as docu and Reports as per HPI Neurologic: Reports system reviewed and no additional complaints, except as documented and Reports as per HPI Psychiatric: Psychiatric: Reports anxiety Endocrine: Endocrine: Reports no additional endocrine complaints and Reports as per HPI Hematologic/Lymphatic: Hematologic/Lymphatic: Reports no additional hematologic/lymphatic complaints and Reports as per HPI Allergic/Immunologic: Allergic/Immunologic: Reports no additional allergic/immunologic complaints and Reports as per HPI [facility] Past Medical History Medical History Anxiety Gastroesophageal reflux disease 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 Tobacco use disorder Surgical History Surgical History History of benign breast biopsy (06/26/18) History of bilateral salpingo-oophorectomy (09/01/03) History of cholecystectomy (2008) History of esophagogastroduodenoscopy (09/10/09) History of hysterectomy (1989) History of laparoscopy (11/21/13) History of stress incontinence procedure using tension free vaginal tape (11/21/13) Family History Family History Father Cirrhosis Alcoholism Mother Alcoholism Cancer Hypertension Daughter Depression Grandparent Depression O
[2024-03-29 12:56] LABS: Basophils Percent Auto 0.7 % (0.0-1.0); Eosinophils Percent Auto 0.8 % (1.0-6.0); Hematocrit 40.7 % (35.0-42.0); Hemoglobin 13.3 g/dL (11.7-13.8); Immature Granulocyte Absolute 0.03 K/mm3 (0.00-0.00); Immature Granulocyte Percent A 0.3 % (0.0-0.0); Immature Platelet Fraction Pct 5.1 % (1.0-7.0); Lymphocytes Absolute Auto 2.47 K/mm3 (1.10-4.50); Lymphocytes Percent Auto 23.1 % (18.0-42.0); Mean Corpuscular HGB Conc 32.7 g/dL (32-36); Mean Corpuscular Hemoglobin 30.4 pg (27.0-31.0); Mean Corpuscular Volume 93.1 fL (78.0-102.0); Mean Platelet Volume 10.5 fl (9.2-11.8); Monocytes Absolute Auto 0.55 K/mm3 (0.10-0.90); Monocytes Percent Auto 5.1 % (2.0-11.0); Neutrophils Absolute Auto 7.47 K/mm3 (1.70-7.20); Platelet Count Result 290 K/mm3 (150-420); Red Blood Count 4.37 M/mm3 (4.20-5.40); Red Cell Distribution Width 12.7 % (11.6-14.4); White Blood Count 10.7 K/mm3 (4.8-10.8)
[2024-03-29 12:57] LABS: Basophils Absolute Auto 0.08 K/mm3 (0.00-0.10); Eosinophils Absolute Auto 0.09 K/mm3 (0.02-0.50)
[2024-03-29] MEDS: ONDANSETRON INJ 4 MG/2 ML VIAL IV PUSH (12:59)
[2024-03-29] MEDS: MORPHINE SULFATE (*CRX) 2 MG/ML INJ IV PUSH (13:02)
[2024-03-29 13:08] LABS: D Dimer 0.44 mg/L (0.19-0.50); INR 0.9; Partial Thromboplastin Time 23.4 Sec (23.9-30.70); Prothrombin Time 10.3 Seconds (9.50-12.1)
[2024-03-29 13:13] LABS: Lactic Acid Reflex 0.7 mmol/L (0.4-2.0)
[2024-03-29 13:17] LABS: Alanine Aminotransferase 25 U/L (14-59); Albumin Level 3.8 g/dL (3.4-5.0); Alkaline Phosphatase 96 U/L (46-116); Anion Gap 12 mmol/L (4-12); Aspartate Amino Transferase 24 U/L (15-37); Bilirubin,Total 0.4 mg/dL (0.00-1.00); Blood Urea Nitrogen 5 mg/dL (7-18); Calcium 9.8 mg/dL (8.5-10.1); Carbon Dioxide 25 mmol/L (21-32); Chloride 106 mmol/L (98-108); Estimated CRCL calculation 57 ml/min; Estimated Glomerular Filt Rate > 60; Glucose 102 mg/dL (70-99); NT Pro B Type Natriuretic Pept 109 pg/mL (0-125); Osmolality Calculated 293 mOsm/kg (285-295); Sodium 143 mmol/L (136-145); Total Protein 7.1 g/dL (6.4-8.2)
[2024-03-29 13:21] LABS: Thyroid Stimulating Hormone 0.76 uIU/mL (0.36-3.74); Troponin I 4.5 ng/L (0.00-60.4)
[2024-03-29] MEDS: PROCHLORPERAZINE EDISYLATE 10 MG/2 ML VIAL IV PUSH (14:14)
[2024-03-29] MEDS: PANTOPRAZOLE SODIUM IV 40 MG VIAL IV PUSH (14:38)
--- NOTE | 2024-03-29 15:50 | ECG_ITS ---
SEE SCANNED COPY FOR CONFIRMED REPORT MTDD
[2024-03-29 16:19] LABS: Troponin I 5.3 ng/L (0.00-60.4)
== END 2024-03-29 16:49 | disposition home or self-care (01) ==
PROVIDERS: Emergency Provider Internal Medicine Critical Care Medicine; PCP Internal Medicine
DX: R07.9 Chest pain, unspecified (principal); K21.9 Gastro-esophageal reflux disease without esophagitis; I10 Essential (primary) hypertension; E78.49 Other hyperlipidemia; F41.9 Anxiety disorder, unspecified; Z86.73 Personal history of transient ischemic attack (TIA), and cerebral infarction without residual deficits; F17.210 Nicotine dependence, cigarettes, uncomplicated; R06.02 Shortness of breath
CPT/HCPCS: 36415; 71045; 80053; 83605; 83880; 84443; 84484; 85025; 85055; 85380; 85610; 85730; 93005; 96374; 96375; 99284; C9113; J0780; J2270; J2405

== ENCOUNTER 2024-04-29 15:29 | Outpatient (CLI) | payer OTHER, SELFPAY ==
--- NOTE | ~2024-04-29 | CT_ITS ---
CT of the Abdomen and Pelvis: Indication: Microscopic hematuria Technique: 2.5 mm axial scans were obtained through the abdomen and pelvis prior to and following in travenous administration of 130 cc of Omnipaque 350. Dose reduction technique was used on this scan b y utilizing automated exposure control and iterative reconstruction technique. The dose-length produc t (DLP) was 1760.28 mGy-cm. Findings: Scans through the lung bases are unremarkable. The liver, spleen, pancreas, right adrenal gland, and kidneys are within normal limits. 3.3 x 2.2 cm low-density left adrenal nodule is compatible with adenoma. Cholecystectomy clips are present. There are atherosclerotic calcifications of the aorta. No lymphadenopathy. No bowel obstruction or bowel wall thickening. There is no evidence to suggest acute appendicitis. Images through the pelvis were performed. Urinary bladder unremarkable. No pelvic mass seen. No ascit es. Impression: No etiology for hematuria identified. 3.3 x 2.2 cm left adrenal adenoma. Reviewed, dictated and finalized at [facility]. Impression: No etiology for hematuria identified. 3.3 x 2.2 cm left adrenal adenoma.
== END 2024-04-29 15:30 | disposition home or self-care (01) ==
LOC: ANHIMG 15:30
PROVIDERS: PCP Internal Medicine; Visit Provider Urology
DX: D35.02 Benign neoplasm of left adrenal gland (principal)
CPT/HCPCS: 74178; Q9967

== ENCOUNTER 2024-05-05 09:24 | Outpatient (CLI) | payer OTHER, SELFPAY ==
[2024-05-05 10:15] LABS: LDL Cholesterol Direct 151 mg/dL
[2024-05-05 10:25] LABS: Hemoglobin A1C 5.6 % (<5.7)
== END 2024-05-05 09:25 | disposition home or self-care (01) ==
LOC: ANHLAB 09:26
PROVIDERS: PCP Internal Medicine; Visit Provider Student in an Organized Health Care Education/Training Program
DX: G45.9 Transient cerebral ischemic attack, unspecified (principal)
CPT/HCPCS: 36415; 83036; 83721

== ENCOUNTER 2024-05-12 14:37 | Outpatient (CLI) | payer OTHER, SELFPAY ==
--- NOTE | ~2024-05-12 | MR_ITS ---
EXAMINATION: MR brain/brain stem wo con DATE: 05/12/2024 15:18 INDICATION: Transient episode of aphasia TECHNIQUE: Magnetic resonance imaging (MRI) of the brain and brainstem was performed without intraven ous contrast. Sequences included sagittal and axial T1-weighted SE, axial diffusion-weighted FS SE, a xial 3D SWAN, axial T2-weighted FLAIR, and axial T2-weighted FSE. Postcontrast axial and coronal T1-w eighted SE was obtained. Apparent diffusion coefficient (ADC) maps were created. COMPARISON: 05/30/2023 FINDINGS: There are no areas of restricted diffusion to suggest acute infarction. Again seen is a small old lac unar infarct at the right central janessa. No abnormal intracranial mass lesion. Unchanged single tiny f ocus of susceptibility artifact in the right frontal lobe most likely old blood products as sequela o f chronic microhemorrhage. Also unchanged is mild scattered nonspecific increased T2-weighted signal intensity in the cerebral white matter most prominent about a sulcus in the posterior left frontal lo be. There are no intraparenchymal signal abnormalities seen on the other pulse sequences. The ventric les are symmetric and normal in size. There are no abnormal extra-axial fluid collections. Flow voids are seen in the cerebral arteries on the T2-weighted sequences consistent with their expected patenc y. Chronic mild mucosal thickening in the paranasal sinuses. Visualized orbits and soft tissues are u nremarkable. IMPRESSION: 1. Small right pontine old lacunar infarct. No acute intracranial process. 2. Unchanged mild scattered mesenteric white matter T2 hyperintensity most prominent along a sulcus i n the left frontal lobe which is within normal limits for age and likely sequela of chronic small ves ignacio ischemic disease. 2. Unchanged kyphosis is overlying artifact in the right frontal lobe consistent with old blood produ cts related to chronic microvascular hemorrhage. Reviewed, dictated and finalized at location A. IMPRESSION: 1. Small right pontine old lacunar infarct. No acute intracranial process. 2. Unchanged mild scattered mesenteric white matter T2 hyperintensity most prom inent along a sulcus in the left frontal lobe which is within normal limits for age and likely sequela of chronic small vessel ischemic disease. 2. Unchanged kyphosis is overlying artifact in the right frontal lobe consisten t with old blood products related to chronic microvascular hemorrhage.
== END 2024-05-12 14:38 | disposition home or self-care (01) ==
LOC: ANHIMG 14:37
PROVIDERS: PCP Internal Medicine; Visit Provider Student in an Organized Health Care Education/Training Program
DX: G45.9 Transient cerebral ischemic attack, unspecified (principal); R90.82 White matter disease, unspecified
CPT/HCPCS: 70551

== ENCOUNTER 2024-05-14 14:41 | Outpatient (CLI) | payer OTHER, SELFPAY ==
--- NOTE | ~2024-05-14 | MR_ITS ---
EXAMINATION: MR lumbar spine wo con DATE: 05/14/2024 15:25 INDICATION: Lower extremity numbness, right worse than left. Low back pain. TECHNIQUE: Magnetic resonance imaging (MRI) of the lumbar spine was performed without intravenous con trast. Sequences included sagittal T2-weighted FSE, sagittal T2-weighted FS FSE, sagittal T1-weighted FSE, and axial T2-weighted FSE. COMPARISON: Lumbar spine MRI 12/20/2020 FINDINGS: Bone alignment is normal. There are Schmorl's nodes at most levels. There is moderately dec reased disc height at L2-L3 and L3-L4 and mildly decreased disc height at L4-L5. The distal spinal co rd signal intensity is normal. The conus medullaris is at L1. The following disc levels are specifica lly discussed: L1-L2: The disc does not extend beyond the endplate margin. There is severe bilateral facet joint ost eoarthritis. There is no neural foraminal stenosis. There is no central canal stenosis. L2-L3: The disc is bulging and has an annular fissure. There is severe bilateral facet joint osteoart hritis. There is mild lateral neural foraminal stenosis. There is mild central canal stenosis. There is moderate stenosis of right lateral recess. L3-L4: The disc is bulging with superimposed left subarticular zone extrusion. There is severe bilate ral facet joint osteoarthritis. There is moderate bilateral neural foraminal stenosis. There is moder ate central canal stenosis. There is severe stenosis of left lateral recess. L4-L5: The disc is bulging. There is severe bilateral facet joint osteoarthritis. There is mild bilat eral neural foraminal stenosis. There is mild central canal stenosis. L5-S1: The disc does not extend beyond the endplate margin. There is severe bilateral facet joint ost eoarthritis. There is mild bilateral neural foraminal stenosis. There is no central canal stenosis. IMPRESSION: 1. Severe lumbar spondylosis, worsened from 12/20/2020. Reviewed, dictated and finalized at location A.
== END 2024-05-14 14:42 | disposition home or self-care (01) ==
PROVIDERS: PCP Internal Medicine; Visit Provider Student in an Organized Health Care Education/Training Program
DX: R20.0 Anesthesia of skin (principal); G45.9 Transient cerebral ischemic attack, unspecified; M47.896 Other spondylosis, lumbar region
CPT/HCPCS: 72148

== ENCOUNTER 2024-07-21 12:57 | Emergency (ER) | payer OTHER, SELFPAY ==
[2024-07-21 13:01] VITALS: BP 173/85; PULSE 64; RESP 16; TEMP 36.8; O2SAT 100
--- NOTE | 2024-07-21 13:05 | ED.ABDPAIN ---
HPI - Abdominal Pain General Chief Complaint: Abdominal Pain Stated Complaint: Stomach Pain Time Seen by Provider: 07/21/24 13:11 Source: patient and RN notes reviewed Mode of arrival: ambulatory Limitations: no limitations History of Present Illness HPI narrative: 64-year-old female presents concern for diarrhea for 2 and half days. She reports episodes of diarrhea were greater on Sunday and Sunday and have lessened today but she still having diarrhea and stomach cramping today. She reports nausea without vomiting. She denies fever, aches, chills, sweats. Denies upper respiratory symptoms. She reports she tried Imodium once MD elicited complaint: abdominal pain Related Data Home Medications Medication Instructions Recorded Confirmed alprazolam 0.5 mg tablet 1 mg PO BID 01/09/21 07/21/24 Allergies Allergy/AdvReac Type Severity Reaction Status Date / Time No Known Allergies Allergy Verified 07/21/24 13:03 Review of Systems Review of Systems: CONSTITUTIONAL: Denies malaise, chills, sweats, or fever. ENT: Denies rhinorrhea, congestion, sinus pain, otalgia or sore throat. CARDIOVASCULAR: Denies chest pain, palpitations, or edema. RESPIRATORY: Denies cough or dyspnea. GASTROINTESTINAL: Denies abdominal pain, vomiting, bloody. Reports nausea and diarrhea GENITOURINARY: Denies dysuria or hematuria. MUSCULOSKELETAL: Denies myalgia. NEUROLOGIC: Denies headache. 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 Tobacco use disorder Surgical History Surgical History History of benign breast biopsy (06/26/18) History of bilateral salpingo-oophorectomy (09/01/03) History of cholecystectomy (2008) History of esophagogastroduodenoscopy (09/10/09) History of hysterectomy (1989) History of laparoscopy (11/21/13) History of stress incontinence procedure using tension free vaginal tape (11/21/13) Family History Family History Father Cirrhosis Alcoholism Mother Alcoholism Cancer Hypertension Daughter Depression Grandparent Depression Other Cerebrovascular accident Family history of alcoholism Family history of cardiovascular disease Family history of malignant neoplasm Family history of malignant neoplasm of ovary Social History Social History Social History: Surrogate medical decision maker: Irineo Blankasurekha (spouse) or Jose Díaz (son). Code status: Full code. Smoking packs per day: 1 Smoking cigarettes per day: 20.0 Years smoked: 40 Smoking pack-years: 40.00 Smoking status: Current some day smoker Tobacco type: cigarettes Alcohol intake: current Substance use: never Substance use type: does not use Do You Feel Safe in your Home?: Yes Lack of Transportation: No Lack of Food: Often True Current Housing: I Have Housing Concerned About Future Housing: No Difficulty Paying Gas/Electric Bills: YES Difficulty Paying for Meds: No Currently Unemployed: No Education: Trade/Vocational Certificate Difficulty w/ Childcare or Family Care: No Living arrangements: with family Additional living arrangements comments: Lives with spouse in [place]. 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 Gender identity (if verbalized by the patient): Female Spiritual care concerns: No Comments At time of signature, agree with nursing past medical, surgical, social and family history. There is no relevant family history pertinent to the presenting compla
== END 2024-07-21 13:23 | disposition home or self-care (01) ==
PROVIDERS: Emergency Provider Nurse Practitioner
DX: R19.7 Diarrhea, unspecified (principal); F17.210 Nicotine dependence, cigarettes, uncomplicated; K21.9 Gastro-esophageal reflux disease without esophagitis; F41.9 Anxiety disorder, unspecified; I69.30 Unspecified sequelae of cerebral infarction
CPT/HCPCS: 99213; G0463

== ENCOUNTER 2024-08-07 03:56 | Emergency (ER) | payer OTHER, SELFPAY ==
--- NOTE | ~2024-08-07 | CT_ITS ---
Non-contrast Head CT History: Dizziness COMPARISON: 05/29/2023 Technique: Axial non-contrast imaging of the brain was performed. Dose reduction technique was used on this scan by utilizing automated exposure control and iterative reconstruction technique. The dose -length product (DLP) was 605.33 mGy-cm. Findings: There is no evidence of intracranial hemorrhage, mass lesion, or acute infarct. Brain par enchyma appears normal. The ventricles and subarachnoid spaces are normal in size. The calvarium ap pears normal. The visualized paranasal sinuses and mastoid air cells are clear. Impression: No significant abnormality seen. Reviewed, dictated and finalized at location . Impression: No significant abnormality seen.
[2024-08-07 03:58] VITALS: BP 187/77; PULSE 54; RESP 12; TEMP 36.2; O2SAT 96
--- NOTE | 2024-08-07 04:09 | ED.DIZZY ---
HPI - Dizziness General Chief Complaint: Dizziness Stated Complaint: dizzy Time Seen by Provider: 08/07/24 04:02 Source: patient Mode of arrival: ambulatory Limitations: no limitations History of Present Illness HPI Narrative: 64-year-old female with a history of smoking, anxiety, hypertension, diabetes mellitus, dyslipidemia, migraine, vertigo, CVA with right brainstem infarct and left frontal infarct, benign positional vertigo presents to the ED with -- vertigo which started at 9:00 p.m. following which she went to sleep. Subsequently when she woke up at 3:00 a.m. she was noted to have ongoing vertigo with severe balance problem. -- Nausea without any vomiting. No focal Motor deficits. No tremor. Coordination is intact. MD elicited complaint: vertigo Pertinent past history: BPPV Onset (ago): hour(s) ( 5 hours) Timing: sudden onset Severity: moderate Description: sense of movement and room spinning History of similar symptoms: Yes Exacerbating factors: change in body position Relieving factors: remaining still Associated symptoms: nausea Associated neuro symptoms: gait ataxia Related Data Home Medications Medication Instructions Recorded Confirmed alprazolam 0.5 mg tablet 1 mg PO BID 01/09/21 08/07/24 atorvastatin 40 mg tablet 80 mg PO QHS 08/07/24 08/07/24 Allergies Allergy/AdvReac Type Severity Reaction Status Date / Time No Known Allergies Allergy Verified 08/07/24 04:02 Review of Systems Review of Systems: All systems reviewed & are unremarkable except as noted in HPI and below Constitutional: Constitutional: Reports as per HPI and Reports no additional constitutional complaints Eyes: Eyes: Reports as per HPI and Reports no additional eye complaints ENT: Reports system reviewed and no additional complaints, except as documented and Reports as per HPI Cardiovascular: Cardiovascular: Reports as per HPI and Reports no additional cardiovascular complaints Respiratory: Respiratory: Reports as per HPI and Reports no additional respiratory complaints Gastrointestinal: Gastrointestinal: Reports as per HPI and Reports no additional gastrointestinal complaints Genitourinary: Genitourinary: Reports no additional female genitourinary complaints and Reports as per HPI Musculoskeletal: Musculoskeletal: Reports no additional musculoskeletal complaints and Reports as per HPI Integumentary/Breasts: Skin/Breast: Reports system reviewed and no additional complaints, except as docu and Reports as per HPI Neurologic: Reports system reviewed and no additional complaints, except as documented, Reports as per HPI and Reports vertigo Comments: unable to walk secondary t Psychiatric: Psychiatric: Reports no additional psychiatric complaints and Reports as per HPI Endocrine: Endocrine: Reports no additional endocrine complaints and Reports as per HPI Hematologic/Lymphatic: Hematologic/Lymphatic: Reports no additional hematologic/lymphatic complaints and Reports as per HPI Allergic/Immunologic: Allergic/Immunologic: Reports no additional allergic/immunologic complaints and Reports as per HPI PMF Past Medical History Medical History Anxiety Ataxia Gastroesophageal reflux disease 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 Tobacco use disorder Surgical History Surgical History History of benign breast biopsy (06/26/18) History of bilateral salpingo-oophorectomy (09/01/03) History of cholecystectomy (2008) History of esophagogastroduodenoscopy (09/10/09) History of hysterectomy (1989) History of laparoscopy (11/21/13) History of stress incontinence procedure using tension free vaginal tape (11/21/13) Family History Family History Father Cirrhosis Alcoholism Mother
--- NOTE | 2024-08-07 04:12 | PC.NURSE ---
Dr Benitez at the bedside
[2024-08-07 04:15] VITALS: BP 160/82; PULSE 51; RESP 18; O2SAT 97
[2024-08-07] MEDS: diphenhydrAMINE HCl INJ 50 MG/ML VIAL 25 MG IM (04:20)
--- NOTE | 2024-08-07 04:34 | PC.NURSE ---
patient transported to ct via wheel chair
--- NOTE | 2024-08-07 04:37 | PC.NURSE ---
patient has returned from ct. placed back on pantograph transferrer
[2024-08-07 04:43] VITALS: BP 156/84; PULSE 51; RESP 18; O2SAT 99
[2024-08-07 05:00] VITALS: BP 154/71; PULSE 55; RESP 16; O2SAT 93
== END 2024-08-07 05:07 | disposition home or self-care (01) ==
PROVIDERS: Emergency Provider Internal Medicine Critical Care Medicine; PCP Internal Medicine
DX: H81.10 Benign paroxysmal vertigo, unspecified ear (principal); I10 Essential (primary) hypertension; E11.9 Type 2 diabetes mellitus without complications; F17.210 Nicotine dependence, cigarettes, uncomplicated; Z86.73 Personal history of transient ischemic attack (TIA), and cerebral infarction without residual deficits; Z79.899 Other long term (current) drug therapy
CPT/HCPCS: 70450; 96372; 99284; J1200

== ENCOUNTER 2024-08-08 12:32 | Outpatient (CLI) | payer OTHER, SELFPAY ==
[2024-08-08 13:19] LABS: Cholesterol 216 mg/dL (0-200); HDL Direct 71 mg/dL; Triglycerides 133 mg/dL (<150)
[2024-08-08 13:29] LABS: LDL Cholesterol Direct 116 mg/dL
[2024-08-11 19:17] LABS: Red Blood Cell Folate 478 ng/mL RBC (>280)
[2024-08-12 09:13] LABS: Methylmalonic Acid 287 nmol/L (69-390)
[2024-08-13 12:58] LABS: Vitamin D 1,25 (OH)2 Total 35 pg/mL (18-72); Vitamin D2 1,25 (OH)2 <8 pg/mL; Vitamin D3 1,25 (OH)2 35 pg/mL
== END 2024-08-08 12:33 | disposition home or self-care (01) ==
LOC: ANHLAB 12:33
PROVIDERS: PCP Internal Medicine; Visit Provider Psychiatry & Neurology Neurology
DX: G45.9 Transient cerebral ischemic attack, unspecified (principal); R20.0 Anesthesia of skin; Z86.73 Personal history of transient ischemic attack (TIA), and cerebral infarction without residual deficits; F17.200 Nicotine dependence, unspecified, uncomplicated; I63.9 Cerebral infarction, unspecified; E55.9 Vitamin D deficiency, unspecified
CPT/HCPCS: 36415; 80061; 82607; 82652; 82747; 83921; 84443

== ENCOUNTER 2024-09-04 13:03 | Outpatient (CLI) | payer OTHER, SELFPAY ==
--- NOTE | 2024-09-04 15:00 | NEURO_ITS ---
Clinical note: Patient is 64-year-old with history of lower back pain and paresthesias in both feet and legs for several years. No history of diabetes mellitus or trauma. On a brief neurological examination no focal weakness or fasciculations or muscle atrophy were noted in both lower limbs. The results of neurodiagnostic testing as follows. Summary of findings 1. Left and right peroneal motor distal latencies amplitude and conduction velocity within normal limits. 2. Left and right tibial motor distal latency amplitude and conduction velocity within normal limits. 3. Bilateral sural and peroneal sensory distal latency amplitude and conduction velocity were normal limits. 4. Bilateral H reflexes were absent. 5. EMG nerve can study were performed. Various muscles were examined in lower limbs as well as related paraspinal muscles. No denervation changes were seen. Motor unit amplitude, duration and recruitment pattern within normal limits. Impression: EMG and nerve can study of both lower limbs are essentially within normal limits. However bilateral H reflex were absent which may raise possibility of chronic S1 radiculopathy particular since the peripheral nerve conduction studies were within normal range. However no denervation changes were seen in this root distribution. Clinical and if necessary radiographic correlation may be considered. Daria Munson MD, FAAN, FAANEM Neurology / Electrodiagnostic Medicine Nerve Conduction Studies Motor Nerve Results Latency Amplitude F-Lat Segment Distance CV Comment Site (ms) (mV) (ms) (cm) (m/s) Left Fibular (EDB) Motor Ankle 4.2 5.4 Bel Fib Head 10.6 5.2 Bel Fib Head-Ankle 290 45 Pop Fossa 12.0 5.1 Pop Fossa-Bel Fib Head 70 50 Right Fibular (EDB) Motor Ankle 3.6 2.8 Bel Fib Head 10.5 3.0 Bel Fib Head-Ankle 265 38 Pop Fossa 11.8 3.0 Pop Fossa-Bel Fib Head 80 62 Left Tibial (AHB) Motor Ankle 4.8 7.4 Knee 13.6 5.0 Knee-Ankle 390 44 Right Tibial (AHB) Motor Ankle 3.6 8.6 Knee 13.1 4.9 Knee-Ankle 380 40 Sensory Nerve Results Latency (Peak) Amplitude (P-P) Segment Distance CV Comment Site (ms) (?V) (cm) (m/s) Left Medial Plantar (Ortho) Sensory Great Toe-Med Mall 2.7 25 Great Toe-Med Mall 105 39 Right Medial Plantar (Ortho) Sensory Great Toe-Med Mall 2.7 19 Great Toe-Med Mall 110 41 Left Sural Sensory Calf-Lat Mall 3.3 12 Calf-Lat Mall 120 36 Right Sural Sensory Calf-Lat Mall 3.2 12 Calf-Lat Mall 120 38 H-Reflex Results M-Lat H Lat H Peak-Peak Amp M Peak-Peak Amp H-M Lat Site (ms) (ms) mV mV (ms) Left Tibial H-Reflex Pop Fossa - NR - - NR Right Tibial H-Reflex Pop Fossa - NR - - NR Electromyography Side Muscle Nerve Ins Act Fibs Psw Amp Dur Recrt Comment Right BicepsFemS Sciatic Nml Nml Nml Nml Nml Nml Right Semimembranosus Sciatic Nml Nml Nml Nml Nml Nml Right AntTibialis Dp Br Fibular Nml Nml Nml Nml Nml Nml Right Gastroc Tibial Nml Nml Nml Nml Nml Nml Right VastusMed Femoral Nml Nml Nml Nml Nml Nml Left BicepsFemS Sciatic Nml Nml Nml Nml Nml Nml Left Semimembranosus Sciatic Nml Nml Nml Nml Nml Nml Left AntTibialis Dp Br Fibular Nml Nml Nml Nml Nml Nml Left Gastroc Tibial Nml Nml Nml Nml Nml Nml Left VastusMed Femoral Nml Nml Nml Nml Nml Nml Left L4 Parasp Rami Nml Nml Nml Nml Nml Nml Right L4 Parasp Rami Nml Nml Nml Nml Nml Nml Right L5 Parasp Rami Nml Nml Nml Nml Nml Nml
== END 2024-09-04 13:04 | disposition home or self-care (01) ==
LOC: ANHNEURO 13:06
PROVIDERS: PCP Internal Medicine; Visit Provider Student in an Organized Health Care Education/Training Program
DX: G45.9 Transient cerebral ischemic attack, unspecified (principal); R20.0 Anesthesia of skin
CPT/HCPCS: 95886; 95910

== ENCOUNTER 2024-11-04 16:35 | Outpatient (RCR) | payer OTHER, SELFPAY ==
--- NOTE | 2024-11-04 17:50 | PTOPEVAL1 ---
Assessment and note entered by Nellie Schaefer DPT Evaluation Information Assessment Status Evaluation Diagnosis low back pain ICD-10 Condition Codes (PT) Pain in right hip M25.551,Pain in left hip M25.552 Other ICD-10 Condition Codes ( M48.062 PT) Onset 10/16/24 Subjective Information Patient reports over the last 5 years she had had an onset of low back pain. She reports pain radiates to B hips. She reports she has spinal stenosis. She reports standing for prolonged periods of time, bending forward, and walking prolonged periods of time. Patient reports her sleep is disturbed at times due to low back pain. She reports she recently had an EMG that was normal. She reports she using a heating pad when she gets home from work and that decreases pain. Reported Pain Level Pain Score 5: Self Report Assessment PT Clinical Summary Brianna Chi is a 64 year old female who presents to PT with low back pain. She demonstrates decreased B LE strength, decreased lumbar ROM, and tenderness at B glutes. She has impaired ability to stand for long periods of time, ambulation long distances and sleep. She would benefit from skilled PT to address impairments and return to PLOF. Plan of Care Interventions Electrical Stimulation,Gait Training,Hot Pack/Cold Pack,Manual Therapy,Mechanical Traction,Patient/ Caregiver Education,Therapeutic Activities, Therapeutic Exercise PT Services Indicated Yes Treatment Frequency and 2x weekly for 10 visits Duration These treatments will address the objective and functional deficits as defined above. The patient will be advanced safely and appropriately in order for the patient to progress towards his/her prior level of function. Additional exercises will be introduced and as well as a comprehensive home exercise program upon discharge, if needed, ?to ensure carryover of functional gains achieved in the clinic. This treatment plan has been reviewed and agreement upon by the patient.
== END 2024-11-04 18:00 | disposition home or self-care (01) ==
LOC: CHSPT 16:35
PROVIDERS: Visit Provider Neurological Surgery
DX: M48.062 Spinal stenosis, lumbar region with neurogenic claudication (principal); M25.551 Pain in right hip; M25.552 Pain in left hip
CPT/HCPCS: 97014; 97110; 97140; 97161; G0283

== ENCOUNTER 2025-01-01 13:26 | Emergency (ER) | payer OTHER, SELFPAY ==
--- NOTE | ~2025-01-01 | XR_ITS ---
EXAMINATION: XR chest 2V DATE: 01/01/2025 15:42 INDICATION: Cough. TECHNIQUE: Frontal and lateral views of the chest were obtained. COMPARISON: Chest single view 03/29/2024 FINDINGS: There is no pneumonia, pleural effusion, or pneumothorax. The heart size is normal. Surgica l clips in the right upper quadrant are likely from cholecystectomy. IMPRESSION: 1. No acute cardiopulmonary disease. Reviewed, dictated and finalized at location A. ETING ANALYST
[2025-01-01 13:31] VITALS: BP 166/85; PULSE 103; RESP 15; TEMP 37.2; O2SAT 97
--- OUTSIDE RECORDS SUMMARY | 2025-01-01 13:36 | XMS_ITS | Clinical Summary ---
Author Organization [facility] [place] [address] [place] [address] Care Team Providers Care Brick Tester Name Role Phone Srikanth Hernandez MD Primary Care Provider [phone] Allergies No known active allergies Medications ALPRAZolam (XANAX) 0.5 mg tablet Take 0.5 mg by mouth 2 (two) times a day. Active aspirin 81 mg enteric coated tablet Take 1 tablet (81 mg total) by mouth daily 30 tablet 11 09/28/2021 Active rosuvastatin (CRESTOR) 40 mg tablet Take 1 tablet (40 mg total) by mouth nightly 30 tablet 11 09/28/2021 Active nitroglycerin (NITROSTAT) 0.[address] 1 tablet (0.4 mg total) under the tongue every 5 (five) minutes as needed for chest pain May repeat dose q 5 min, up to 3 doses total 90 tablet 3 09/28/2021 Active buPROPion SR (ZYBAN) 150 mg 12 hr tablet Take 1 tablet (150 mg total) by mouth 2 (two) times a day 60 tablet 11 09/28/2021 Active Active Problems Problem Noted Date Diagnosed Date Intermittent claudication 12/06/2017 Surgical History Surgery Date Site/Laterality Comments VAGINAL HYSTERECTOMY CHOLECYSTECTOMY BREAST EXCISIONAL BIOPSY Medical History Medical History Date Comments Dizziness GERD (gastroesophageal reflux disease) Anxiety Arthritis PAD (peripheral artery disease) (HCC) Family History Medical History Relation Name Comments Cirrhosis Father No Known Problems Mother No Known Problems Sister Relation Name Status Comments Father (Age 62) Mother Alive Sister Alive Social History Tobacco Use Types Packs/Day Years Used Date Smoking Tobacco: Every Day Cigarettes Smokeless Tobacco: Never Alcohol Use Standard Drinks/Week Comments No 0 (1 standard drink = 0.6 oz pur e alcohol) Personal Safety Answer Date Recorded Getting School Help Needed Not on file Comments Unknown Sex and Gender Information Value Date Recorded Sex Assigned at Not on file Legal Sex Female 11:59 PM PULPER Gender Identity Not on file Sexual Orientation Not on file Obstetrics History Last Filed Vital Signs Vital Sign Reading Time Taken Comments Blood Pressure 104/60 10/26/2021 2:54 PM PULPER Pulse 70 10/26/2021 2:54 PM PULPER Temperature - - Respiratory Rate - - Oxygen Saturation 99% 10/26/2021 2:54 PM PULPER Inhaled Oxygen Concentration - - Weight 75.9 kg (167 lb 6.4 oz) 10/26/2021 2:54 P M PULPER Height 160 cm (5' 3 ) 10/26/2021 2:54 PM PULPER Body Mass Index 29.65 10/26/2021 2:54 PM PULPER Plan of Treatment Not on file Insurance [facility] Care Teams Brick Tester Relationship Specialty Start Date End Date Srikanth Hernandez MD PCP - General Internal Medicine 11/05/17
--- OUTSIDE RECORDS SUMMARY | 2025-01-01 13:36 | XMS_ITS | Referral Summary ---
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 Gender Identity Not on file Sexual Orientation Not on file Last Filed Vital Signs Vital Sign Reading Time Taken Comments Blood Pressure 104/60 10/26/2021 2:54 PM CLUB CAR ATTENDANT Pulse 70 10/26/2021 2:54 PM CLUB CAR ATTENDANT Temperature - - Respiratory Rate - - Oxygen Saturation 99% 10/26/2021 2:54 PM CLUB CAR ATTENDANT Inhaled Oxygen Concentration - - Weight 75.9 kg (167 lb 6.4 oz) 10/26/2021 2:54 P M CLUB CAR ATTENDANT Height 160 cm (5' 3 ) 10/26/2021 2:54 PM CLUB CAR ATTENDANT Body Mass Index 29.65 10/26/2021 2:54 PM CLUB CAR ATTENDANT Plan of Treatment Not on file Insurance [facility] [place] [id number] Care Teams Air Box Tester Relationship Specialty Start Date End Date Srikanth Hernandez MD PCP - General Internal Medicine 11/05/17
--- OUTSIDE RECORDS SUMMARY | 2025-01-01 13:36 | XMS_ITS | Clinical Summary ---
Author Organization [facility] Address [address] [place] [id number] Care Team Providers Care Motion Graphics Artist Name Role Phone Unavailable Primary Care Provider Unavailabl e Social History Tobacco Use Types Packs/Day Years Used Date Smoking Tobacco: Never Assessed Comments Unknown Sex and Gender Information Value Date Recorded Sex Assigned at Not on file Legal Sex Female 10:52 PM CDT Gender Identity Not on file Sexual Orientation Not on file Plan of Treatment Health Maintenance Due Date Last Done Comments Colorectal Cancer Screening Colonoscopy (10 Years) 1959 Hepatitis C 1977 DTaP, Tdap and Td Vaccines ( 1 - Tdap) 1978 Mammogram Screening 1999 Zoster Vaccines (1 of 2) 2009 Dexa Scan (General) 2024 Pneumococcal Vaccine: 65+ Ye ars (1 of 1 - PCV) 2024 COVID-19 Vaccine ( - 2023-2 5 season) 2024 Influenza Adult (#1) 2024 RSV Immunization or 60+ Years (1 - 1-dose 75+ series) 2034 Meningococcal B Vaccine Aged Out No l onger eligible based on patient's age to complete this topic Meningococcal Vaccine Aged Out No gene rich eligible based on patient's age to complete this topic Pneumococcal Vaccine: Pediat rics (0 to 5 Years) and At-Risk Patients (6 to 64 Years) Aged Out No longer eligible b ased on patient's age to complete this topic RSV Immunizations Under 20 Months Aged Out No longer eligible based on patient's age to complete this topic
--- OUTSIDE RECORDS SUMMARY | 2025-01-01 13:36 | XMS_ITS | CONTINUITY OF CARE DOCUMENT ---
Author Name gela ren Address Unknown Organization [facility] Address [address] [place] [address] Phone [phone] Care Team Providers Care Sql Server Architect Name Role Phone gela ren Unavailable Unavailable
--- NOTE | 2025-01-01 15:28 | ED.URI ---
HPI - URI/Sore Throat General Chief Complaint: Upper Respiratory Infection <Zoya Manzo PA-C - Last Filed: 01/01/25 15:34> Stated Complaint: fever, dizzy, cough, congestion <Zoya Manzo PA-C - Last Filed: 01/01/25 15:34> Time Seen by Provider: 01/01/25 15:28 <Zoya Manzo PA-C - Last Filed: 01/01/25 15:34> Focused HPI: Patient is a 64 y/o female who presents to the ED with c/o URI sx's. Patient reports she began feeling unwell this morning. She reports having fever, cough, congestion, rhinorrhea, fatigue, body aches, lightheadedness. States has had similar sx's over last few days. Took Advil at 3am this morning. Has not had anything for sx's since then. Denies N/V/D, abd pain, sob. GENERAL: Well-appearing, obese with BMI of 30.3, and in no acute distress. HEAD: Normocephalic, atraumatic. CHEST: Clear to auscultation. ?No respiratory distress. No focal lung sounds. HEART: Regular rate and rhythm.? NEURO: ?Alert and oriented x3. Patient screened in triage and initial orders placed.? ?Additional care and disposition to be based upon?diagnostic testing and treatment. <Zoya Manzo PA-C - Last Filed: 01/01/25 15:34> Source: patient <Zoya Manzo PA-C - Last Filed: 01/01/25 15:34> Mode of arrival: ambulatory <ADARSH Mclaughlin Last Filed: 01/01/25 15:34> Limitations: no limitations <ADARSH Mclaughlin Last Filed: 01/01/25 15:34> History of Present Illness HPI Narrative: Agree with the HPI above. <Kenneth Sultana MD - Last Filed: 01/02/25 00:13> Related Data Home Medications: Home Medications ?Medication ?Instructions ?Recorded ?Confirmed ?Last Taken ?Type alprazolam 0.5 mg tablet 1 mg PO BID 01/09/21 08/07/24 08/06/24 History atorvastatin 40 mg tablet 80 mg PO QHS 08/07/24 08/07/24 08/06/24 History <Zoya Manzo PA-C - Last Filed: 01/01/25 15:34> Allergies/Adverse Reactions: Allergies Allergy/AdvReac Type Severity Reaction Status Date / Time No Known Allergies Allergy Verified 01/01/25 16:18 <Zoya Manzo PA-C - Last Filed: 01/01/25 15:34> Review of Systems Review of Systems: As reviewed above HPI <Kenneth Sultana MD - Last Filed: 01/02/25 00:13> [facility] Past Medical History Medical History: Medical History Anxiety Ataxia Gastroesophageal reflux disease 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 Tobacco use disorder <Zoya Manzo PA-C - Last Filed: 01/01/25 15:34> Surgical History Surgical History: Surgical History History of benign breast biopsy (06/26/18) History of bilateral salpingo-oophorectomy (09/01/03) History of cholecystectomy (2008) History of esophagogastroduodenoscopy (09/10/09) History of hysterectomy (1989) History of laparoscopy (11/21/13) History of stress incontinence procedure using tension free vaginal tape (11/21/13) <Zyoa Manzo PA-C - Last Filed: 01/01/25 15:34> Family History Family History: Family History Father Cirrhosis Alcoholism Mother Alcoholism Cancer Hypertension Daughter Depression Grandparent Depression Other Cerebrovascular accident Family history of alcoholism Family history of cardiovascular disease Family history of malignant neoplasm Family history of malignant neoplasm of ovary <Zoya Manzo PA-C - Last Filed: 01/01/25 15:34> Social History Social History: Social History Social History: Surrogate medical decision maker: Irineo Chi (spouse) or Jose Díaz (son). Code status: Full code. Smoking packs per day: 1 Smoking cigarettes per day: 20.0 Years smoked: 40 Smoking pack-years: 40.00 Smoking status: Current some day smoker Tobacco type: cigarettes Alcohol intake: current Substance use: never Substance use type: does not use Do You Feel Safe in your Home?: Yes Lack of Transportation: No Lack of Food: Sometimes True Current Housing: I Have Housing Concerned About Future Housing: No Difficulty Paying Gas/Electric Bills: No Difficulty Paying for Meds: No Currently Unemployed: No Education: Trade/Vocational Certificate Difficulty w/ Childcare or Family Care: No Living arrangements: with family Additional living arrangements comments: Lives with spouse in [place]. 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 Gender identity (if verbalized by the patient): Female Spiritual care concerns: No <Zoya Manzo PA-C - Last Filed: 01/01/25 15:34> Exam Narrative: GENERAL: [Well-appearing, well-nourished, and in no acute distress.] HEAD: [Normocephalic, atraumatic.] EYES: [PERRLA and EOMI.] ENT: Nares clear, no rhinorrhea or epistaxis. Mucous membranes moist. NECK: Supple. CHEST: [Clear to auscultation. No respiratory distress.] HEART: [Regular rate and rhythm]. No murmur heard. [Normal peripheral pulses.] ABDOMEN: [Soft, nondistended], [nontender], [No rigidity or guarding] EXTREMITIES: Normal range of motion. [No edema.] SKIN: Warm, dry, no rash. NEURO: [No focal deficits]. Alert and oriented [x3.] PSYCH: [Normal mood and affect.] <Kenneth Sultana MD - Last Filed: 01/02/25 00:13> Course Vital Signs Vital signs: Vital Signs Temperature 37.2 C 01/01/25 13:31 Pulse Rate 103 H 01/01/25 13:31 Respiratory Rate 15 01/01/25 13:31 Blood Pressure 166/85 H 01/01/25 13:31 Pulse Oximetry 97 01/01/25 13:31 Oxygen Delivery Room Air 01/01/25 13:31 Temperature 38.3 C H 01/01/25 17:06 Pulse Rate 86 01/01/25 16:16 Respiratory Rate 18 01/01/25 16:16 Blood Pressure 160/90 H 01/01/25 16:16 Pulse Oximetry 100 01/01/25 16:16 Oxygen Delivery Room Air 01/01/25 16:12 <Zoya Manzo PA-C - Last Filed: 01/01/25 15:34> Vital Signs Temperature 37.2 C 01/01/25 13:31 Pulse Rate 103 H 01/01/25 13:31 Respiratory Rate 15 01/01/25 13:31 Blood Pressure 166/85 H 01/01/25 13:31 Pulse Oximetry 97 01/01/25 13:31 Oxygen Delivery Room Air 01/01/25 13:31 Temperature 38.3 C H 01/01/25 17:06 Pulse Rate 86 01/01/25 16:16 Respiratory Rate 18 01/01/25 16:16 Blood Pressure 160/90 H 01/01/25 16:16 Pulse Oximetry 100 01/01/25 16:16 Oxygen Delivery Room Air 01/01/25 16:12 <Kenneth Sultana MD - Last Filed: 01/02/25 00:13> MDM - URI/Sore Throat MDM Narrative Medical decision making narrative: MSE by LEXIE in triage. <Zoya Manzo PA-C - Last Filed: 01/01/25 15:34> MSE by LEXIE in triage. 64-year-old female presenting with signs and symptoms of a viral upper respiratory infection Starting this morning. She does have positive sick contacts with her with similar symptoms. Endorses taking Advil at 3:00 a.m. with improvement. Has had similar presentations in the past and thinks she has influenza. patient did receive her vaccine last year. No signs of respiratory distress, she is febrile at 38.3? C which improved with Tylenol. She is saturating 100% room air without any tachypnea or respiratory distress. Patient likely has a viral upper respiratory infection, chest x-ray was obtained, viral swabs obtained. Chest x-ray independently reviewed shows no signs of pneumonia or consolidation. She tested positive for influenza A which explains her symptomatology. 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 patient was prescribe symptom controlling medications and stable for discharge home at this time. <Kenneth Sultana MD - Last Filed: 01/02/25 00:13> Medical Records Attestation: I reviewed the patient's medical records. <Kenneth Sultana MD - Last Filed: 01/02/25 00:13> Lab Data Attestation: I reviewed the patient's lab results. <Kenneth Sultana MD - Last Filed: 01/02/25 00:13> Labs: Lab Results 01/01/25 Range/Units 15:31 Influenza A (RT-PCR) Positive A (Negative) Influenza B (RT-PCR) Negative (Negative) RSV (RT-PCR) Negative (Negative) SARS-CoV-2 RNA (RT-PCR) Negative (Negative) <Zoya Manzo PA-C - Last Filed: 01/01/25 15:34> Lab Results 01/01/25 Range/Units 15:31 Influenza A (RT-PCR) Positive A (Negative) Influenza B (RT-PCR) Negative (Negative) RSV (RT-PCR) Negative (Negative) SARS-CoV-2 RNA (RT-PCR) Negative (Negative) <Kenneth Sultana MD - Last Filed: 01/02/25 00:13> Imaging Data Attestation: I personally reviewed and interpreted this imaging study as follows: <Kenneth Sultana MD - Last Filed: 01/02/25 00:13> My impression: Impressions Chest X-Ray 01/01/25 15:43 IMPRESSION: 1. No acute cardiopulmonary disease. <Kenneth Sultana MD - Last Filed: 01/02/25 00:13> Discharge Plan Discharge Clinical Impression: Influenza A, URI (upper respiratory infection) <Zoya Manzo PA-C - Last Filed: 01/01/25 15:34> Patient Disposition: Home, Self-Care <ADARSH Mclaughlin Last Filed: 01/01/25 15:34> Condition: Stable <ADARSH Mclaughlin Last Filed: 01/01/25 15:34> Instructions: Antibiotic Form, Influenza (ED), Cold Symptoms (ED) <ADARSH Mclaughlin Last Filed: 01/01/25 15:34> Additional Instructions: tested positive for influenza, Tylenol and ibuprofen for fever and pain control, benzonatate for cough suppression. Follow-up with regular doctor, return to work when your no longer febrile or having a productive cough. Typical symptoms last about 5 days. <ADARSH Mclaughlin Last Filed: 01/01/25 15:34> Patient Language: Czech <ADARSH Mclaughlin Last Filed: 01/01/25 15:34> Prescriptions: New acetaminophen [Tylenol Extra Strength] 500 mg tablet 1,000 mg PO TID PRN (Reason: pain) Qty: 30 0RF ibuprofen 600 mg tablet 600 mg PO TID PRN (Reason: pain) Qty: 20 0RF guaifenesin [Mucinex] 1,200 mg tablet extended release 12hr 1,200 mg PO Q12H Qty: 20 0RF benzonatate 200 mg capsule 200 mg PO TID PRN (Reason: cough) Qty: 20 0RF No Action atorvastatin 40 mg tablet 80 mg PO QHS meclizine [Antivert] 25 mg tablet,chewable 25 mg PO TID PRN (Reason: motion sickness) Qty: 30 0RF alprazolam 0.5 mg tablet 1 mg PO BID aspirin [Children's Aspirin] 81 mg Tablet,Chewable 81 mg PO EVERY OTHER DAY 365 Days Qty: 183 0RF <ADARSH Mclaughlin Last Filed: 01/01/25 15:34> Follow-up/Referrals: UNKNOWN,DOCTOR [Primary Care Provider] - <ADARSH Mclaughlin Last Filed: 01/01/25 15:34> Stand Alone Forms: Work/School Release IP <Zoya Manzo PA-C - Last Filed: 01/01/25 15:34> Time of Disposition: 17:12 <Zoya Manzo PA-C - Last Filed: 01/01/25 15:34> 17:12 <Kenneth Sultana MD - Last Filed: 01/02/25 00:13>
[2025-01-01 16:16] VITALS: BP 160/90; PULSE 86; RESP 18; TEMP 39.4; O2SAT 100
[2025-01-01] MEDS: ACETAMINOPHEN 500 MG TABLET 1000 MG PO (16:25)
[2025-01-01 16:26] LABS: Influenza A QL RT-PCR Positive (Negative); Influenza B QL RT-PCR Negative (Negative); RSV RNA, RT-PCR Negative (Negative); SARS-CoV-2 RNA PCR Negative (Negative)
--- NOTE | 2025-01-01 16:32 | PC.NURSE ---
Patient took 2 tabs advil while in the waiting room. Pt medicated as per jan with tylenol. Febrile. Pt updated in flu a pos result. Awaiting provider eval. Call light in reach.
--- OUTSIDE RECORDS SUMMARY | 2025-01-01 16:43 | XMS_ITS | CONTINUITY OF CARE DOCUMENT ---
Author Name gela ren Address Unknown Organization [facility] Address [address] [place] [address] Phone [phone] Care Team Providers Care Street Light Repairer Helper Name Role Phone gela ren Unavailable Unavailable
--- OUTSIDE RECORDS SUMMARY | 2025-01-01 16:43 | XMS_ITS | Clinical Summary ---
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 Gender Identity Not on file Sexual Orientation Not on file Obstetrics History Last Filed Vital Signs Vital Sign Reading Time Taken Comments Blood Pressure 104/60 10/26/2021 2:54 PM DRAG OUT WORKER Pulse 70 10/26/2021 2:54 PM DRAG OUT WORKER Temperature - - Respiratory Rate - - Oxygen Saturation 99% 10/26/2021 2:54 PM DRAG OUT WORKER Inhaled Oxygen Concentration - - Weight 75.9 kg (167 lb 6.4 oz) 10/26/2021 2:54 P M DRAG OUT WORKER Height 160 cm (5' 3 ) 10/26/2021 2:54 PM DRAG OUT WORKER Body Mass Index 29.65 10/26/2021 2:54 PM DRAG OUT WORKER Plan of Treatment Not on file Insurance [facility] H[facility]/PPO Address: [address] [address] [facility] H[facility]/PPO Address: [address] [address] Care Teams Research Interviewer Relationship Specialty Start Date End Date Srikanth Hernandez MD PCP - General Internal Medicine 11/05/17
--- OUTSIDE RECORDS SUMMARY | 2025-01-01 16:44 | XMS_ITS | Clinical Summary ---
Author Organization [facility] Address [address] [place] [address] Care Team Providers Care Entry Level Accounting Clerk Name Role Phone Unavailable Primary Care Provider [...]
--- OUTSIDE RECORDS SUMMARY | 2025-01-01 16:44 | XMS_ITS | Referral Summary ---
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 Gender Identity Not on file Sexual Orientation Not on file Last Filed Vital Signs Vital Sign Reading Time Taken Comments Blood Pressure 104/60 10/26/2021 2:54 PM AUDIO/VISUAL OPERATOR Pulse 70 10/26/2021 2:54 PM AUDIO/VISUAL OPERATOR Temperature - - Respiratory Rate - - Oxygen Saturation 99% 10/26/2021 2:54 PM AUDIO/VISUAL OPERATOR Inhaled Oxygen Concentration - - Weight 75.9 kg (167 lb 6.4 oz) 10/26/2021 2:54 P M AUDIO/VISUAL OPERATOR Height 160 cm (5' 3 ) 10/26/2021 2:54 PM AUDIO/VISUAL OPERATOR Body Mass Index 29.65 10/26/2021 2:54 PM AUDIO/VISUAL OPERATOR Plan of Treatment Not on file Insurance [facility] [employer] Address: [address] [address] [facility] HMO/PPO Address: [facility] [address] [place] [address], [place] [address] Care Teams Coffee Maker Relationship Specialty Start Date End Date Srikanth Hernandez MD PCP - General Internal Medicine 11/05/17
[2025-01-01 17:06] VITALS: TEMP 38.3
== END 2025-01-01 17:30 | disposition home or self-care (01) ==
PROVIDERS: Physician Assistant; Emergency Provider Student in an Organized Health Care Education/Training Program
DX: J10.1 Influenza due to other identified influenza virus with other respiratory manifestations (principal); Z20.822 Contact with and (suspected) exposure to COVID-19; K21.9 Gastro-esophageal reflux disease without esophagitis; F17.210 Nicotine dependence, cigarettes, uncomplicated; Z86.73 Personal history of transient ischemic attack (TIA), and cerebral infarction without residual deficits; Z90.722 Acquired absence of ovaries, bilateral; Z90.79 Acquired absence of other genital organ(s); Z90.49 Acquired absence of other specified parts of digestive tract; Z90.710 Acquired absence of both cervix and uterus
CPT/HCPCS: 71046; 87637; 99283; A9270

== ENCOUNTER 2025-01-24 11:46 | Emergency (ER) | payer OTHER, SELFPAY ==
[2025-01-24 12:09] VITALS: BP 116/76; PULSE 59; RESP 16; TEMP 36.8; O2SAT 100
--- NOTE | 2025-01-24 12:37 | ED.URI ---
HPI - URI/Sore Throat General Chief Complaint: Upper Respiratory Infection Stated Complaint: chest congestion/cough/fever/fatigue Time Seen by Provider: 01/24/25 12:15 Source: patient Mode of arrival: ambulatory Limitations: no limitations History of Present Illness HPI Narrative: Brianna is a 64-year-old female patient presenting to the clinic today with complaints of chest congestion, cough, fatigue, and fever. Reports 2-3 weeks ago she had influenza. Still has lingering cough and chest congestion with fatigue. Fevers have been low-grade. States her highest fever was over 103. Denies any chest pain or shortness of breath at this time. Cough is nonproductive. MD elicited complaint: fever, cough, nasal congestion and other (Chest congestion) Related Data Home Medications ?Medication ?Instructions ?Recorded ?Confirmed ?Last Taken ?Type alprazolam 0.5 mg tablet 1 mg PO BID 01/09/21 08/07/24 08/06/24 History atorvastatin 40 mg tablet 80 mg PO QHS 08/07/24 08/07/24 08/06/24 History Allergies Allergy/AdvReac Type Severity Reaction Status Date / Time No Known Allergies Allergy Verified 01/01/25 16:18 Review of Systems Review of Systems: Pertinent positives per HPI. Patient denies any rash, headache, visual changes, dizziness, shortness of breath, chest pain, palpitations, nausea, vomiting, diarrhea, constipation, abdominal pain, or any urinary issues. 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 Gastroesophageal reflux disease Anxiety Surgical History Surgical History History of benign breast biopsy (06/26/18) History of laparoscopy (11/21/13) History of stress incontinence procedure using tension free vaginal tape (11/21/13) History of esophagogastroduodenoscopy (09/10/09) History of bilateral salpingo-oophorectomy (09/01/03) History of hysterectomy (1989) History of cholecystectomy (2008) Family History Family History Father Cirrhosis Alcoholism Mother Alcoholism Cancer Hypertension Daughter Depression Grandparent Depression Other Cerebrovascular accident Family history of alcoholism Family history of cardiovascular disease Family history of malignant neoplasm Family history of malignant neoplasm of ovary Social History Social History Social History: Surrogate medical decision maker: Irineo Chi (spouse) or Jose Díaz (son). Code status: Full code. Smoking packs per day: 1 Smoking cigarettes per day: 20.0 Years smoked: 40 Smoking pack-years: 40.00 Smoking status: Current some day smoker Tobacco type: cigarettes Alcohol intake: current Substance use: never Substance use type: does not use Do You Feel Safe in your Home?: Yes Lack of Transportation: No Lack of Food: Sometimes True Current Housing: I Have Housing Concerned About Future Housing: No Difficulty Paying Gas/Electric Bills: No Difficulty Paying for Meds: No Currently Unemployed: No Education: Trade/Vocational Certificate Difficulty w/ Childcare or Family Care: No Living arrangements: with family Additional living arrangements comments: Lives with spouse in [place]. 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 Gender identity (if verbalized by the patient): Female Spiritual care concerns: No Comments At the time of my signature, I reviewed and agree with the nursing past medical, surgical, social, and family history. There is no relevant family history pertinent to the patient complaint. Exam Narrative: General: Well-developed, well nourished, in no apparent distress Head: Normocephalic, atraumatic Eyes: Pupils equally round and reactive to light bilaterally, EOM intact, sclera and conjunctive clear, no discharge, lids normal Ears: TMs intact and congested, ear canals clear, no drainage, grossly hearing normal. Nose: Nares patent, clear nasal discharge, no inflammation, no sinus tenderness. Mouth: Oral pharynx red without lesions or masses, good dentition, MMM. Postnasal drip Neck: Supple, trachea midline, no enlargement of anterior or posterior cervical nodes, no thyroid masses or goiter palpable. Cardio: Regular rate and rhythm, s1 and s2 normal, no murmur appreciated. Resp: Clear to auscultation bilaterally, no rhonchi, rales, wheezing or rubs Course Course Emergency Course: Portions of this record may have been created with voice recognition software. Level of Care: Express Care Visit Vital Signs Vital signs: Vital Signs Temperature 36.8 C 01/24/25 12:09 Pulse Rate 59 L 01/24/25 12:09 Respiratory Rate 16 01/24/25 12:09 Blood Pressure 116/76 01/24/25 12:09 Pulse Oximetry 100 01/24/25 12:09 Temperature 36.8 C 01/24/25 12:09 Pulse Rate 59 L 01/24/25 12:09 Respiratory Rate 16 01/24/25 12:09 Blood Pressure 116/76 01/24/25 12:09 Pulse Oximetry 100 01/24/25 12:09 Vital signs reviewed MDM - URI/Sore Throat MDM Narrative Medical decision making narrative: At the time of visit patient is resting comfortably on the exam table. Patient appears to be nontoxic. Labs: COVID and influenza testing was negative. Plan: I suspect patient has URI with cough and congestion. Prescription for albuterol inhaler, Tessalon Perles, and prednisone was sent to the pharmacy. Supportive measures were discussed with the patient and they voiced understanding discharge instructions and agrees to treatment plan. Return precautions reviewed Differential Diagnosis Differential diagnosis: Likely upper respiratory infection, otitis media, sinusitis, viral infection, bronchitis, influenza, pharyngitis and other (COVID) Discharge Plan Discharge Clinical Impression: Upper respiratory infection with cough and congestion Patient Disposition: Home, Self-Care Condition: Stable Instructions: Antibiotic Form, Upper Respiratory Infection (ED) Additional Instructions: COVID and influenza testing was negative in the clinic today. Take prescription medications only as prescribed-Tessalon Perles, prednisone, and albuterol inhaler Increase fluids and stay well hydrated Tylenol/motrin for pain/fever Flonase and OTC antihistamines as directed Vicks vapor rub to open sinuses Sinus rinses for congestion Cepacol spray, cough drops, throat lozenges, warm tea with honey/lemon, gargle salt water to soothe throat BRAT diet for diarrhea Clear liquids x 24 hours then advance as tolerated for nausea/vomiting Go to the ED if you develop a worsening in your condition- high fever not controlled by Tylenol or Motrin, dehydration, weakness, lethargy, shortness of breath, or chest pain. Follow up with your PCP in 3-5 days if symptoms persist. Patient Language: Tajik Prescriptions: New benzonatate 200 mg capsule 200 mg PO TID 7 Days Qty: 21 0RF prednisone 20 mg tablet 40 mg PO DAILY 5 Days Qty: 10 0RF albuterol sulfate 90 mcg/actuation HFA aerosol inhaler 2 puff inhalation Q4-6H PRN (Reason: shortness of breath or wheezing) 30 Days Qty: 8.5 0RF (DME) Space Chamber Spacer See Rx Instructions .Route Qty: 1 0RF Rx Instructions: As directed No Action atorvastatin 40 mg tablet 80 mg PO QHS meclizine [Antivert] 25 mg tablet,chewable 25 mg PO TID PRN (Reason: motion sickness) Qty: 30 0RF alprazolam 0.5 mg tablet 1 mg PO BID aspirin [Children's Aspirin] 81 mg Tablet,Chewable 81 mg PO EVERY OTHER DAY 365 Days Qty: 183 0RF acetaminophen [Tylenol Extra Strength] 500 mg tablet 1,000 mg PO TID PRN (Reason: pain) Qty: 30 0RF ibuprofen 600 mg tablet 600 mg PO TID PRN (Reason: pain) Qty: 20 0RF guaifenesin [Mucinex] 1,200 mg tablet extended release 12hr 1,200 mg PO Q12H Qty: 20 0RF benzonatate 200 mg capsule 200 mg PO TID PRN (Reason: cough) Qty: 20 0RF Follow-up/Referrals: Srikanth Hernandez MD [Primary Care Provider] - Time of Disposition: 12:39 Quality NIHSS Nursing Documentation ED NIHSS nursing documentation: reviewed/agree
[2025-01-24 12:42] LABS: EDCOVIDSCREEN Negative (Negative); EDINFLUASCREEN Negative (Negative); EDINFLUBSCREEN Negative (Negative)
== END 2025-01-24 12:44 | disposition home or self-care (01) ==
PROVIDERS: Emergency Provider Nurse Practitioner Family; PCP Internal Medicine
DX: J06.9 Acute upper respiratory infection, unspecified (principal); R05.9 Cough, unspecified; Z20.822 Contact with and (suspected) exposure to COVID-19; F17.210 Nicotine dependence, cigarettes, uncomplicated; K21.9 Gastro-esophageal reflux disease without esophagitis; I25.2 Old myocardial infarction; F41.9 Anxiety disorder, unspecified
CPT/HCPCS: 87426; 87804; 99213; G0463

== ENCOUNTER 2025-02-13 13:25 | Emergency (ER) | payer OTHER, SELFPAY ==
[2025-02-13 13:35] VITALS: BP 160/86; PULSE 75; RESP 16; TEMP 36.4; O2SAT 99
--- NOTE | 2025-02-13 14:18 | ED.URI ---
HPI - URI/Sore Throat General Chief Complaint: Upper Respiratory Infection Stated Complaint: Sinus Infection Symptoms Time Seen by Provider: 02/13/25 13:44 Source: patient and RN notes reviewed Mode of arrival: ambulatory Limitations: no limitations History of Present Illness HPI Narrative: Patient presents today complaining of one-month history of respiratory symptoms. She initially had influenza a was out of the window for Tamiflu. Three weeks ago on 01/24/2025 she was seen at [facility] and treated for URI with prednisone, Tessalon Perles, and an albuterol inhaler. States since that time her symptoms have waxed and waned, but never fully resolved. She is complaining of cough, nasal congestion with postnasal drainage. Denies fever or shortness of breath. Her cough is worse when she tries to lay flat. She has been taking ibuprofen. Her was diagnosed with COVID-19 yesterday, but she has tested negative so far. History of mild COPD but does not currently use anything for treatment. Related Data Home Medications ?Medication ?Instructions ?Recorded ?Confirmed ?Last Taken ?Type alprazolam 0.5 mg tablet 1 mg PO BID 01/09/21 08/07/24 08/06/24 History atorvastatin 40 mg tablet 80 mg PO QHS 08/07/24 08/07/24 08/06/24 History Allergies Allergy/AdvReac Type Severity Reaction Status Date / Time No Known Allergies Allergy Verified 02/13/25 13:37 Review of Systems Review of Systems: CONSTITUTIONAL: Denies body aches, fever, chills, or sweats. EYES: Denies visual changes, redness, or discharge. ENT: + congestion, rhinorrhea, postnasal drainage CARDIOVASCULAR: Denies chest pain, palpitations, or edema. RESPIRATORY: Denies dyspnea.+ cough GASTROINTESTINAL: Denies abdominal pain, nausea, vomiting, or diarrhea. GENITOURINARY: Denies dysuria or hematuria. SKIN: Denies rash, itching, or wounds. MUSCULOSKELETAL: Denies back pain, joint pain, or myalgia. NEUROLOGIC: Denies headache, numbness, tingling, or weakness. PSYCH: Denies depression or anxiety. 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 Gastroesophageal reflux disease Anxiety Surgical History Surgical History History of benign breast biopsy (06/26/18) History of laparoscopy (11/21/13) History of stress incontinence procedure using tension free vaginal tape (11/21/13) History of esophagogastroduodenoscopy (09/10/09) History of bilateral salpingo-oophorectomy (09/01/03) History of hysterectomy (1989) History of cholecystectomy (2008) Family History Family History Father Cirrhosis Alcoholism Mother Alcoholism Cancer Hypertension Daughter Depression Grandparent Depression Other Cerebrovascular accident Family history of alcoholism Family history of cardiovascular disease Family history of malignant neoplasm Family history of malignant neoplasm of ovary Social History Social History Social History: Surrogate medical decision maker: Irineo Chi (spouse) or Jose Díaz (son). Code status: Full code. Smoking packs per day: 1 Smoking cigarettes per day: 20.0 Years smoked: 40 Smoking pack-years: 40.00 Smoking status: Current some day smoker Tobacco type: cigarettes Alcohol intake: current Substance use: never Substance use type: does not use Do You Feel Safe in your Home?: Yes Lack of Transportation: No Lack of Food: Sometimes True Current Housing: I Have Housing Concerned About Future Housing: No Difficulty Paying Gas/Electric Bills: No Difficulty Paying for Meds: No Currently Unemployed: No Education: Trade/Vocational Certificate Difficulty w/ Childcare or Family Care: No Living arrangements: with family Additional living arrangements comments: Lives with spouse in [place]. 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 Gender identity (if verbalized by the patient): Female Spiritual care concerns: No Comments At time of signature, I have reviewed and agree with nursing past medical, surgical, social and family history unless otherwise noted. Please see nursing chart for further information. There is no relevant family history pertinent to the presenting complaint Exam Narrative: GENERAL: Mildly ill-appearing, well-nourished, and in no acute distress. HEAD: Normocephalic, atraumatic. EYES: EOMI. No redness or drainage. Conjunctivae normal. ENT: Mucous membranes pink and moist. Nares congested with rhinorrhea. TMs normal bilaterally. Throat normal. Uvula midline. NECK: Normal AROM. Supple. No lymphadenopathy. CHEST: No respiratory distress. Clear to auscultation. HEART: Regular rate and rhythm. No murmur appreciated. EXTREMITIES: Normal range of motion. No edema. SKIN: Warm, dry, no rash. Capillary refill normal. Normal skin turgor. NEURO: No focal deficits. Alert and oriented x3. Gait steady. PSYCH: Normal affect. No signs of depression or anxiety. Course Course Level of Care: Express Care Visit Vital Signs Vital signs: Vital Signs Temperature 97.6 F 02/13/25 13:35 Pulse Rate 75 02/13/25 13:35 Respiratory Rate 16 02/13/25 13:35 Blood Pressure 160/86 H 02/13/25 13:35 Pulse Oximetry 99 02/13/25 13:35 Temperature 97.6 F 02/13/25 13:35 Pulse Rate 75 02/13/25 13:35 Respiratory Rate 16 02/13/25 13:35 Blood Pressure 160/86 H 02/13/25 13:35 Pulse Oximetry 99 02/13/25 13:35 Reviewed MDM - URI/Sore Throat MDM Narrative Medical decision making narrative: Patient will be treated with a course of Augmentin and prednisone for sinusitis and COPD exacerbation. Anticipatory guidance given. Differential Diagnosis Differential diagnosis: Likely upper respiratory infection, otitis media, sinusitis, viral infection and other (COPD exacerbation, pneumonia) Critical Care Time Critical Care Time Critical Care Time: No Discharge Plan Discharge Clinical Impression: COPD exacerbation Sinusitis Qualifiers: Sinusitis location: unspecified location Chronicity: acute Recurrence: non-recurrent Qualified Code(s): J01.90 - Acute sinusitis, unspecified Patient Disposition: Home, Self-Care Condition: Stable Instructions: Antibiotic Form, Sinusitis (ED) Additional Instructions: Please take the Augmentin and prednisone as directed. You may continue [id number] medication as needed. Follow-up with your PCP next week if symptoms are not improving. Go to the ER immediately if symptoms worsen to include chest pain, shortness of breath, new fever greater than 100.3. Your blood pressure was elevated above 120/80 today at Urgent Care. This puts you above the threshold for follow up. Please schedule a followup visit with your personal physician as soon as possible, for further evaluation and treatment. Even blood pressure exceeding 120/80 may indicate pre-hypertension. Patient Language: Telugu Prescriptions: New prednisone 20 mg tablet 40 mg PO DAILY 5 Days Qty: 10 0RF amoxicillin-pot clavulanate 875-125 mg tablet 1 tablet PO Q12H 7 Days Qty: 14 0RF No Action atorvastatin 40 mg tablet 80 mg PO QHS meclizine [Antivert] 25 mg tablet,chewable 25 mg PO TID PRN (Reason: motion sickness) Qty: 30 0RF alprazolam 0.5 mg tablet 1 mg PO BID benzonatate 200 mg capsule 200 mg PO TID 7 Days Qty: 21 0RF prednisone 20 mg tablet 40 mg PO DAILY 5 Days Qty: 10 0RF albuterol sulfate 90 mcg/actuation HFA aerosol inhaler 2 puff inhalation Q4-6H PRN (Reason: shortness of breath or wheezing) 30 Days Qty: 8.5 0RF (DME) Space Chamber Spacer See Rx Instructions .Route Qty: 1 0RF Rx Instructions: As directed aspirin [Children's Aspirin] 81 mg Tablet,Chewable 81 mg PO EVERY OTHER DAY 365 Days Qty: 183 0RF acetaminophen [Tylenol Extra Strength] 500 mg tablet 1,000 mg PO TID PRN (Reason: pain) Qty: 30 0RF ibuprofen 600 mg tablet 600 mg PO TID PRN (Reason: pain) Qty: 20 0RF guaifenesin [Mucinex] 1,200 mg tablet extended release 12hr 1,200 mg PO Q12H Qty: 20 0RF benzonatate 200 mg capsule 200 mg PO TID PRN (Reason: cough) Qty: 20 0RF Follow-up/Referrals: PHYSICIAN,MOLDED FRAMES ASSEMBLER [Primary Care Provider] - Time of Disposition: 14:22
== END 2025-02-13 14:34 | disposition home or self-care (01) ==
PROVIDERS: Emergency Provider Nurse Practitioner
DX: J44.1 Chronic obstructive pulmonary disease with (acute) exacerbation (principal); J01.90 Acute sinusitis, unspecified; F17.210 Nicotine dependence, cigarettes, uncomplicated; K21.9 Gastro-esophageal reflux disease without esophagitis; F41.9 Anxiety disorder, unspecified; Z86.73 Personal history of transient ischemic attack (TIA), and cerebral infarction without residual deficits
CPT/HCPCS: 99213; G0463

== ENCOUNTER 2025-02-28 09:32 | Outpatient (CLI) | payer OTHER, SELFPAY ==
--- OUTSIDE RECORDS SUMMARY | 2025-02-28 09:35 | XMS_ITS | CONTINUITY OF CARE DOCUMENT ---
Author Name gela ren Address Unknown Organization [facility] Address [address] [place] [address] Phone [phone] Care Team Providers Care Tar Distributor Operator Name Role Phone gela ren Unavailable Unavailable
--- OUTSIDE RECORDS SUMMARY | 2025-02-28 09:35 | XMS_ITS | Clinical Summary ---
Author Organization [facility] Address [address] [place] [address] Care Team Providers Care Local Driver Name Role Phone Unavailable Primary Care Provider [...] Vaccine ( - 2023-2 5 season) 2024 RSV Immunization or 60+ Years (1 [...]
--- OUTSIDE RECORDS SUMMARY | 2025-02-28 09:35 | XMS_ITS | Clinical Summary ---
Author Organization [facility] [address] Address [address] [place] [address] Care Team Providers Care Specification Consultant Name Role Phone Srikanth Hernandez MD Primary Care Provider [phone] Allergies No known active allergies Medications ALPRAZolam [...] disease) Anxiety Arthritis PAD (peripheral artery disease) Family History Medical History Relation Name Comments [...] on file Legal Sex Female 11:59 PM FORECLOSURE HOME INSPECTOR Gender Identity Not on file Sexual Orientation Not on file Obstetrics History Last Filed Vital Signs Vital Sign Reading Time Taken Comments Blood Pressure 104/60 10/26/2021 2:54 PM FORECLOSURE HOME INSPECTOR Pulse 70 10/26/2021 2:54 PM FORECLOSURE HOME INSPECTOR Temperature - - Respiratory Rate - - Oxygen Saturation 99% 10/26/2021 2:54 PM FORECLOSURE HOME INSPECTOR Inhaled Oxygen Concentration - - Weight 75.9 kg (167 lb 6.4 oz) 10/26/2021 2:54 P M FORECLOSURE HOME INSPECTOR Height 160 cm (5' 3 ) 10/26/2021 2:54 PM FORECLOSURE HOME INSPECTOR Body Mass Index 29.65 10/26/2021 2:54 PM FORECLOSURE HOME INSPECTOR Plan of Treatment Not on file Insurance [facility] Care Teams Specification Consultant Relationship Specialty Start Date End Date Srikanth Hernandez MD PCP - General Internal Medicine 11/05/17
--- OUTSIDE RECORDS SUMMARY | 2025-02-28 09:35 | XMS_ITS | Referral Summary ---
Author Organization [facility] [address] Address [address] [place] [address] Care Team Providers Care Supervisor Food Checkers And Cashiers Name Role Phone Srikanth Hernandez MD Primary Care Provider [phone] Allergies No known active allergies Medications ALPRAZolam [...] on file Legal Sex Female 11:59 PM AUDIO ENGINEER Gender Identity Not on file Sexual Orientation Not on file Last Filed Vital Signs Vital Sign Reading Time Taken Comments Blood Pressure 104/60 10/26/2021 2:54 PM AUDIO ENGINEER Pulse 70 10/26/2021 2:54 PM AUDIO ENGINEER Temperature - - Respiratory Rate - - Oxygen Saturation 99% 10/26/2021 2:54 PM AUDIO ENGINEER Inhaled Oxygen Concentration - - Weight 75.9 kg (167 lb 6.4 oz) 10/26/2021 2:54 P M AUDIO ENGINEER Height 160 cm (5' 3 ) 10/26/2021 2:54 PM AUDIO ENGINEER Body Mass Index 29.65 10/26/2021 2:54 PM AUDIO ENGINEER Plan of Treatment Not on file Insurance [facility] [place] [address] Care Teams Supervisor Food Checkers And Cashiers Relationship Specialty Start Date End Date Srikanth Hernandez MD PCP - General Internal Medicine 11/05/17
[2025-02-28 10:33] LABS: Cholesterol 174 mg/dL (0-200); HDL Direct 76 mg/dL (40-60); LDL Cholesterol Calculated 86 mg/dL (<130); Triglycerides 60 mg/dL (0-150)
== END 2025-02-28 09:33 | disposition home or self-care (01) ==
PROVIDERS: PCP Internal Medicine; Visit Provider Psychiatry & Neurology Neurology
DX: M47.816 Spondylosis without myelopathy or radiculopathy, lumbar region (principal); G56.02 Carpal tunnel syndrome, left upper limb; Z86.73 Personal history of transient ischemic attack (TIA), and cerebral infarction without residual deficits; Z13.6 Encounter for screening for cardiovascular disorders
CPT/HCPCS: 36415; 80061

== ENCOUNTER 2025-03-16 09:42 | Outpatient (CLI) | payer OTHER, SELFPAY ==
--- NOTE | ~2025-03-16 | XR_ITS ---
XR chest 2V Ordering provider: Enzo Ricketts MD History: 65 years Female with . pleuritic CHEST PAIN, CIUGH X 3 MO. HX COPD . Comparison: January 01, 2025 FINDINGS: MEDIASTINUM: The cardiac silhouette is not enlarged. LUNGS: No infiltrates, effusions or pneumothorax. OTHER: No free air under the diaphragm. Degenerative changes of the spine. IMPRESSION: No acute cardiopulmonary pathology. Reviewed, dictated and finalized at location A.
--- OUTSIDE RECORDS SUMMARY | 2025-03-16 10:51 | XMS_ITS | CONTINUITY OF CARE DOCUMENT ---
Author Name gela ren Address Unknown Organization [facility] Address [address] [place] [address] Phone [phone] Care Team Providers Care Relay Checker Name Role Phone gela ren Unavailable Unavailable
--- OUTSIDE RECORDS SUMMARY | 2025-03-16 10:51 | XMS_ITS | Clinical Summary ---
Author Organization [facility] Address [address] [place] [address] Care Team Providers Care Extrusion Press Adjuster Name Role Phone Unavailable Primary Care Provider [...] 1 - Tdap) 1978 Mammogram Screening 1999 Pneumococcal Vaccine: 50+ Ye ars (1 of 1 - PCV) 2009 Zoster Vaccines (1 of 2) 2009 Dexa Scan (General) 2024 COVID-19 Vaccine ( - 2023-2 5 [...]
--- OUTSIDE RECORDS SUMMARY | 2025-03-16 10:51 | XMS_ITS | Referral Summary ---
Author Organization [facility] [address] Address [address] [place] [address] Care Team Providers Care Medical Record Technician Name Role Phone Srikanth Hernandez MD Primary Care Provider Allergies No known active allergies Medications ALPRAZolam [...] on file Legal Sex Female 11:59 PM TALENT ADVISOR Gender Identity Not on file Sexual Orientation Not on file Last Filed Vital Signs Vital Sign Reading Time Taken Comments Blood Pressure 104/60 10/26/2021 2:54 PM TALENT ADVISOR Pulse 70 10/26/2021 2:54 PM TALENT ADVISOR Temperature - - Respiratory Rate - - Oxygen Saturation 99% 10/26/2021 2:54 PM TALENT ADVISOR Inhaled Oxygen Concentration - - Weight 75.9 kg (167 lb 6.4 oz) 10/26/2021 2:54 P M TALENT ADVISOR Height 160 cm (5' 3 ) 10/26/2021 2:54 PM TALENT ADVISOR Body Mass Index 29.65 10/26/2021 2:54 PM TALENT ADVISOR Plan of Treatment Not on file Insurance [facility] [employer] Address: [address] [address] [place] [address] Care Teams Medical Record Technician Relationship Specialty Start Date End Date Srikanth Hernandez MD PCP - General Internal Medicine 11/05/17
--- OUTSIDE RECORDS SUMMARY | 2025-03-16 10:51 | XMS_ITS | Clinical Summary ---
Author Organization [facility] [address] Address [address] [place] [address] Care Team Providers Care Human Resource Analyst Name Role Phone Srikanth Hernandez MD Primary Care Provider [phone] Allergies No known active allergies Medications ALPRAZolam [...] on file Legal Sex Female 11:59 PM COSMETOLOGIST Gender Identity Not on file Sexual Orientation Not on file Obstetrics History Last Filed Vital Signs Vital Sign Reading Time Taken Comments Blood Pressure 104/60 10/26/2021 2:54 PM COSMETOLOGIST Pulse 70 10/26/2021 2:54 PM COSMETOLOGIST Temperature - - Respiratory Rate - - Oxygen Saturation 99% 10/26/2021 2:54 PM COSMETOLOGIST Inhaled Oxygen Concentration - - Weight 75.9 kg (167 lb 6.4 oz) 10/26/2021 2:54 P M COSMETOLOGIST Height 160 cm (5' 3 ) 10/26/2021 2:54 PM COSMETOLOGIST Body Mass Index 29.65 10/26/2021 2:54 PM COSMETOLOGIST Plan of Treatment Not on file Insurance [facility] Care Teams Human Resource Analyst Relationship Specialty Start Date End Date Srikanth Hernandez MD PCP - General Internal Medicine 11/05/17
== END 2025-03-16 09:43 | disposition home or self-care (01) ==
PROVIDERS: PCP Internal Medicine; Visit Provider Obstetrics & Gynecology
DX: R07.1 Chest pain on breathing (principal)
CPT/HCPCS: 71046

== ENCOUNTER 2025-03-26 12:36 | Outpatient (CLI) | payer OTHER, SELFPAY ==
--- NOTE | 2025-03-26 14:30 | NEURO_ITS ---
Clinical note: The patient is 65 years old female with history of paresthesias in the left upper limb and pain in the neck past 4 months. No history of diabetes mellitus or major trauma. A brief neurological examination of upper limbs did not show any focal motor weakness or muscle atrophy or fasciculations. The results of the EMG nerve can study are given below. Summary of findings 1. Left median motor distal latency and conduction velocity were normal however amplitudes are mildly decreased. 2. Left ulnar motor distal latency and amplitude were within normal limits. Conduction velocity from below elbow to wrist was normal, however minimal slowing was noted across the elbow. 3. Left median and ulnar palmar and digital and left radial sensory distal latencies and amplitudes were within normal limits. 3. EMG examination was performed were various muscles examined in left upper limb in C5-T1 distribution. No denervation changes were seen. Motor unit amplitude, duration and recruitment pattern appeared within acceptable normal limits. 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 No denervation changes were seen in the distribution of left ulnar nerve in forearm or hand at this time. Daria Munson MD.FAAN, FAANEM Neurologist Nerve Conduction Studies Motor Nerve Results ? Latency Amplitude F-Lat Segment Distance CV Comment Site (ms) (mV) (ms) (cm) (m/s) Left Median (APB) Motor Wrist 3.7 4.6 Elbow 7.2 4.4 Elbow-Wrist 205 59 Left Ulnar (ADM) Motor Wrist 2.4 8.1 Bel Elbow 5.7 7.7 Bel Elbow-Wrist 190 58 Abv Elbow 7.3 7.7 Abv Elbow-Bel Elbow 75 47 Sensory Nerve Results ? Latency (Peak) Amplitude (P-P) Segment Distance CV Comment Site (ms) (?V) (cm) (m/s) Left Median DigIII Sensory Wrist-Dig III 3.3 64 Wrist-Dig III 130 39 Left Median-Ulnar Palmar Sensory ? Median Palm-Wrist 2.1 87 Palm-Wrist 80 38 ? Ulnar Palm-Wrist 1.98 38 Palm-Wrist 80 40 Left Radial Sensory Forearm-Wrist 1.93 71 Forearm-Wrist 100 52 Left Ulnar Sensory Wrist-Dig V 3.0 55 Wrist-Dig V 135 45 Electromyography ?Side Muscle Nerve Ins Act Fibs Psw Amp Dur Recrt Comment Left Deltoid Axillary Nml Nml Nml Nml Nml Nml Left Triceps Radial Nml Nml Nml Nml Nml Nml Left ExtCarUln Radial (Post Int) Nml Nml Nml Nml Nml Nml Left FlexPolLong Median (Ant Int) Nml Nml Nml Nml Nml Nml Left 1stDorInt Ulnar Nml Nml Nml Nml Nml Nml Left Abd Poll Brev Median Nml Nml Nml Nml Nml Nml Left FlexDigProf Ulnar Nml Nml Nml Nml Nml Nml Left FlexCarRad Median Nml Nml Nml Nml Nml Nml Left BrachioRad Radial Nml Nml Nml Nml Nml Nml MTDD
== END 2025-03-26 12:37 | disposition home or self-care (01) ==
LOC: ANHNEURO 12:37
PROVIDERS: PCP Internal Medicine; Visit Provider Psychiatry & Neurology Neurology
DX: G56.02 Carpal tunnel syndrome, left upper limb (principal); E11.9 Type 2 diabetes mellitus without complications
CPT/HCPCS: 95886; 95909

== ENCOUNTER 2025-04-16 08:55 | Observation (INO) | payer OTHER, SELFPAY ==
[2025-04-16] VITALS (11 sets, daily range): BP systolic 118–157; BP diastolic 65–129; PULSE 49–74; RESP 14–21; TEMP 36.4–36.8; O2SAT 97–100; BMI 30.3
--- NOTE | ~2025-04-16 | MR_ITS ---
EXAMINATION: MR brain/brain stem wo/w con DATE: 04/17/2025 09:04 INDICATION: Left sided numbness TECHNIQUE: Magnetic resonance imaging (MRI) of the brain and brainstem was performed without and with 16 mL ProHance intravenous contrast. Sequences included sagittal and axial T1-weighted SE, axial dif fusion-weighted FS SE, axial 3D SWAN, axial T2-weighted FLAIR, and axial T2-weighted FSE. Postcontras t axial and coronal T1-weighted SE was obtained. Apparent diffusion coefficient (ADC) maps were creat ed. COMPARISON: Brain MR dated 05/12/2024 and 05/30/2023 FINDINGS: There are no areas of restricted diffusion to suggest acute infarction. Unchanged small old lacunar i nfarct at the right central janessa. Unchanged single tiny focus of susceptibility artifact in the right frontal lobe consistent with sequela of chronic microhemorrhage as can be seen with hypertension. Al so unchanged is mild scattered nonspecific increased T2-weighted signal intensity in the cerebral whi te matter most prominent about a sulcus in the posterior left frontal lobe. There are no intraparench ymal signal abnormalities seen on the other pulse sequences. The ventricles are symmetric and normal in size. There are no abnormal extra-axial fluid collections. Flow voids are seen in the cerebral art eries on the T2-weighted sequences consistent with their expected patency. Chronic mild mucosal thickening in the paranasal sinuses. Vis ualized orbits and soft tissues are unremarkable. IMPRESSION: 1. Small right pontine old lacunar infarct. No acute intracranial process. 2. Unchanged mild scattered nonspecific white matter T2 hyperintensity most prominent along a sulcus in the left frontal lobe which is within normal limits for age and likely sequela of chronic small ve ssel ischemic disease. 2. Unchanged small focus of susceptibility artifact in the right frontal lobe consistent with sequela of chronic microhemorrhage as can be seen with hypertension. Reviewed, dictated and finalized at location A. IMPRESSION: 1. Small right pontine old lacunar infarct. No acute intracranial process. 2. Unchanged mild scattered nonspecific white matter T2 hyperintensity most pro minent along a sulcus in the left frontal lobe which is within normal limits fo r age and likely sequela of chronic small vessel ischemic disease. 2. Unchanged small focus of susceptibility artifact in the right frontal lobe c onsistent with sequela of chronic microhemorrhage as can be seen with hypertens ion.
--- NOTE | ~2025-04-16 | CT_ITS ---
EXAMINATION: CT brain wo con DATE: 04/16/2025 09:08 INDICATION: Left-sided weakness and numbness TECHNIQUE: Computed tomography (CT) of the head was performed without intravenous contrast. Sagittal and coronal reconstructions were performed. The mA was adjusted according to patient size. Iterative reconstruction technique was employed. The dose-length product was 605.33 mGy-cm. COMPARISON: head CT dated 08/07/2024 FINDINGS: No acute intracranial hemorrhage, acute infarction or abnormal extra axial fluid collection. Unchange d old infarct in the janessa, slightly to the right of midline. Ventricles are normal and symmetric. No mass/mass effect. The orbits, paranasal sinuses and mastoid air cells are normal. IMPRESSION: 1. Unchanged small old right pontine infarct. No acute intracranial process. Reviewed, dictated and finalized at location A.
--- NOTE | ~2025-04-16 | CT_ITS ---
CTA brain carotid Ordering provider: Angelina Castaneda III, DO History: . cva? . * Comparison: The cardiac silhouette is Technique: CT angiogram head and neck was performed following timed intravenous injection of contrast . Thin slice axial images and reformatted coronal images were obtained. Three dimensional reformatted images of the brain were also obtained using a [employer] workstation. Radiation reduction technique uti lized. The dose-length product was 919.21 mGy-cm. 100 MLO Omnipaque 350 was given IV. FINDINGS: HEAD: --ANTERIOR AND MIDDLE CEREBRAL ARTERIES AND BRANCHES: Normal caliber and contour. --INTERNAL CAROTID ARTERIES: Mild atheromatous disease but no significant stenosis. No occlusion. --BASILAR ARTERY AND BRANCHES: Normal caliber and contour. No atheromatous disease. --POSTERIOR CEREBRAL ARTERIES: Normal caliber and contour --POSTERIOR COMMUNICATING ARTERIES: The right continues as the posterior cerebral artery. The left is not visualized which is probably related to congenital absence or small size. --ANEURYSM: None visualized. --BRAIN: Please refer to report of CT head performed the same day. --BONES AND SUPERFICIAL SOFT TISSUES: Please refer to report of CT head performed the same day. --PARANASAL SINUSES AND MASTOIDS: Please refer to report of CT head done the same day. NECK: --RIGHT CERVICAL CAROTID SYSTEM: Normal caliber and contour. Percent stenosis per NASCET criteria is 0%. No carotid dissection. Otherwise, no significant atheromatous disease or stenosis of the cervica l carotid system. --LEFT CERVICAL CAROTID SYSTEM: 30% narrowing of the left common carotid artery is noted. Mild athero matous disease of the carotid bulb and proximal internal carotid artery without significant stenosis. Percent stenosis per NASCET criteria is 30%. No carotid dissection. Otherwise, no significant atheromatous disease or stenosis of the cervical carotid system. --VERTEBRAL ARTERIES: Normal caliber and contour. --VISUALIZED AORTIC ARCH AND BRANCHING VESSELS: Mild atheromatous disease but no significant stenosis . --SOFT TISSUES: Normal. --CERVICAL SPINE: Age appropriate degenerative changes. IMPRESSION: 1. Normal CTA head. 2. CTA of the neck. Percent stenosis per NASCET criteria is 30%on the left side. Reviewed, dictated and finalized at location A. IMPRESSION: 1. Normal CTA head. 2. CTA of the neck. Percent stenosis per NASCET criteria is 30%on the left vandana e.
--- NOTE | ~2025-04-16 | XR_ITS ---
Portable chest x-ray Comparison: 03/16/2025 Clinical History: CVA Findings: Lungs are clear, without focal consolidation or pleural effusion. Cardiomediastinal silho uette is stable. Bones and soft tissues are unremarkable. Impression: Normal chest. Reviewed, dictated and finalized at [facility]. Impression: Normal chest.
--- NOTE | 2025-04-16 08:59 | ECG_ITS ---
Test Date: 2025-04-16 09:20:30 Measurements Intervals [place] Rate: 64 P: 31 FL: 145 QRS: 46 QRSD: 90 T: 34 QT: 424 QTc: 438 Interpretive Statements SINUS RHYTHM No previous ECG available for comparison Electronically Signed On 04-16-2025 14:08:50 CDT by Benjamin Briones M.D.
--- OUTSIDE RECORDS SUMMARY | 2025-04-16 08:59 | XMS_ITS | CONTINUITY OF CARE DOCUMENT ---
Author Name gela ren Address Unknown Organization [facility] Address [address] [place] [address] Phone [phone] Care Team Providers Care Casing Tester Name Role Phone gela ren Unavailable Unavailable
--- OUTSIDE RECORDS SUMMARY | 2025-04-16 08:59 | XMS_ITS | Clinical Summary ---
Author Organization [facility] [address] Address [address] [place] [address] Care Team Providers Care Vpk Teacher Name Role Phone Srikanth Hernandez MD Primary Care Provider [phone] Allergies No known active allergies Medications ALPRAZolam [...] on file Legal Sex Female 11:59 PM CHIEF WELLNESS OFFICER Gender Identity Not on file Sexual Orientation Not on file Obstetrics History Last Filed Vital Signs Vital Sign Reading Time Taken Comments Blood Pressure 104/60 10/26/2021 2:54 PM CHIEF WELLNESS OFFICER Pulse 70 10/26/2021 2:54 PM CHIEF WELLNESS OFFICER Temperature - - Respiratory Rate - - Oxygen Saturation 99% 10/26/2021 2:54 PM CHIEF WELLNESS OFFICER Inhaled Oxygen Concentration - - Weight 75.9 kg (167 lb 6.4 oz) 10/26/2021 2:54 P M CHIEF WELLNESS OFFICER Height 160 cm (5' 3 ) 10/26/2021 2:54 PM CHIEF WELLNESS OFFICER Body Mass Index 29.65 10/26/2021 2:54 PM CHIEF WELLNESS OFFICER Plan of Treatment Not on file Insurance [facility] Care Teams Vpk Teacher Relationship Specialty Start Date End Date Srikanth Hernandez MD PCP - General Internal Medicine 11/05/17
--- OUTSIDE RECORDS SUMMARY | 2025-04-16 08:59 | XMS_ITS | Referral Summary ---
Author Organization [facility] [address] Address [address] [place] [address] Care Team Providers Care Burglar Alarm Assembler Name Role Phone Srikanth Hernandez MD Primary Care Provider [phone] Allergies No known active allergies Medications ALPRAZolam [...] on file Legal Sex Female 11:59 PM SENIOR NURSE MANAGER Gender Identity Not on file Sexual Orientation Not on file Last Filed Vital Signs Vital Sign Reading Time Taken Comments Blood Pressure 104/60 10/26/2021 2:54 PM SENIOR NURSE MANAGER Pulse 70 10/26/2021 2:54 PM SENIOR NURSE MANAGER Temperature - - Respiratory Rate - - Oxygen Saturation 99% 10/26/2021 2:54 PM SENIOR NURSE MANAGER Inhaled Oxygen Concentration - - Weight 75.9 kg (167 lb 6.4 oz) 10/26/2021 2:54 P M SENIOR NURSE MANAGER Height 160 cm (5' 3 ) 10/26/2021 2:54 PM SENIOR NURSE MANAGER Body Mass Index 29.65 10/26/2021 2:54 PM SENIOR NURSE MANAGER Plan of Treatment Not on file Insurance [facility] [employer] Address: [address] [address] [facility] HMO/PPO Address: [facility] [address] [place] [address], [place] [address] Care Teams Burglar Alarm Assembler Relationship Specialty Start Date End Date Srikanth Hernandez MD PCP - General Internal Medicine 11/05/17
[2025-04-16 09:03] LABS: Glucose Point of Care 93 mg/dl (65-105)
--- NOTE | 2025-04-16 09:04 | ED_ITS ---
HPI - Neuro Symptoms/Deficit General Chief Complaint: Neuro Symptoms/Deficit Stated Complaint: left sided numbness Time Seen by Provider: 04/16/25 08:59 History of Present Illness HPI Narrative: Pt awoke with some numbness to left side of face and thought she slept on it wrong. She woke up at 0700. She went to work and as the mornig progressed she felt some weakness in left face and some slight weakness on left arm and leg. Pt denies CAMPBELL. Related Data Home Medications ?Medication ?Instructions ?Recorded ?Confirmed ?Last Taken ?Type alprazolam 0.5 mg tablet 1 mg PO TID PRN anxiety 01/09/21 04/16/25 08/06/24 History Allergies Allergy/AdvReac Type Severity Reaction Status Date / Time No Known Allergies Allergy Verified 02/16/25 15:29 Review of Systems 2 Review of Systems: All systems reviewed & are unremarkable except as noted in HPI and below PMFSH Past Medical History Medical History Lumbar stenosis with neurogenic claudication Gastroesophageal reflux disease Irritable bowel syndrome HTN (hypertension) HLD (hyperlipidemia) TIA (transient ischemic attack) 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 Left carpal tunnel syndrome Ataxia Tobacco use disorder Anxiety Surgical History Surgical History History of cholecystectomy (2008) History of benign breast biopsy (06/26/18) History of laparoscopy (11/21/13) History of stress incontinence procedure using tension free vaginal tape (11/21/13) History of esophagogastroduodenoscopy (09/10/09) History of bilateral salpingo-oophorectomy (09/01/03) History of hysterectomy (1989) Family History Family History Father Cirrhosis Alcoholism Mother Alcoholism Cancer Hypertension Daughter Depression Grandparent Depression Other Cerebrovascular accident Family history of alcoholism Family history of cardiovascular disease Family history of malignant neoplasm Family history of malignant neoplasm of ovary Social History Social History Social History: Surrogate medical decision maker: Irineo Chi (spouse) or Jose Díaz (son). Code status: Full code. Smoking packs per day: 1 Smoking cigarettes per day: 20.0 Years smoked: 40 Smoking pack-years: 40.00 Smoking status: Current every day smoker Tobacco type: cigarettes Alcohol intake: current Drinks per week: 1 Substance use: never Substance use type: does not use Do You Feel Safe in your Home?: Yes Lack of Transportation: No Lack of Food: Sometimes True Current Housing: I Have Housing Concerned About Future Housing: No Difficulty Paying Gas/Electric Bills: No Difficulty Paying for Meds: No Currently Unemployed: No Education: High School Diploma/GED Difficulty w/ Childcare or Family Care: No Living arrangements: with family Additional living arrangements comments: Lives with spouse in [place]. 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 Gender identity (if verbalized by the patient): Female Spiritual care concerns: No Exam 2 Const: General: healthy appearing and no acute distress Nutritional Appearance: well nourished Orientation/consciousness: patient oriented x3 Limitations: no limitations HENMT: Head: normal to inspection Throat: posterior oropharynx normal Eyes: Conjunctivae: conjunctivae normal EOM: EOMs intact bilaterally Neck: Neck: normal visual inspection and no lymphadenopathy Resp: Effort & Inspection: normal respiratory effort Auscultation: clear to auscultation bilaterally Cardio: Rate: regular rate Rhythm: regular rhythm GI: GI Palp: Yes Soft to palpation and No Tenderness to palpation present (GI) Auscultation: normal bowel sounds Skin: General skin exam: normal color Rashes: no rashes Wounds: no wounds Neuro: General: patient oriented x3, moves all extremities, no meningeal signs, no focal motor deficits and CN's II-XI intact bilaterally Cranial nerves: Yes Nystagmus not present Speech: normal speech Extrem: General: normal to inspection and no clubbing, cyanosis or edema Psych: Mental Status: mental status grossly normal Affect: normal affect Attitude: cooperative Course Vital Signs Vital signs: Vital Signs Temperature 97.7 F 04/16/25 09:15 Pulse Rate 64 04/16/25 09:15 Respiratory Rate 14 04/16/25 09:15 Blood Pressure 149/79 H 04/16/25 09:15 Pulse Oximetry 100 04/16/25 09:15 Oxygen Delivery Room Air 04/16/25 09:15 Temperature 97.6 F 04/16/25 15:09 Pulse Rate 63 04/16/25 15:09 Respiratory Rate 16 04/16/25 15:09 Blood Pressure 134/68 04/16/25 15:09 Pulse Oximetry 100 04/16/25 15:09 Oxygen Delivery Room Air 04/16/25 15:00 MDM - Neuro Symptoms/Deficit MDM Narrative Medical decision making narrative: Pt has very mild cva symptoms, with left facial numbness on waking at 0700 and then a feeling of weakness on left side that has progressed during the morning. Will get stroke work up include cta. work up unremarkable. Pt says she still has numbness in left face and some weakness in left arm and leg. Discussed with Dr SANTOS and agrees to admit. Lab Data 04/16/25 09:03 04/16/25 09:03 Labs: Lab Results 04/16/25 04/16/25 Range/Units 09:01 09:03 WBC 11.0 H (4.5-10.0) K/mm3 RBC 4.49 (4.2-5.4) M/mm3 Hgb 13.5 (12.0-15.0) g/dL Hct 41.7 (37.0-47.0) % MCV 92.9 (80-100) fl MCH 30.1 (26-34) pg MCHC 32.4 (32-36) g/dl RDW 13.7 (11.5-14.5) % Plt Count 331 (150-375) k/mm3 MPV 10.1 (7.4-10.4) fl Immature Gran % (Auto) 0.4 (0-0.5) % Neut % (Auto) 62.7 (45.5-73.1) % Lymph % (Auto) 30.5 (18.3-44.2) % Sutter % (Auto) 4.3 (2.6-8.5) % Eos % (Auto) 1.2 (0-4.4) % Baso % (Auto) 0.9 (0.2-1.2) % Lymph # (Auto) 3.36 H (0.9-3.2) K/mm3 Sutter # (Auto) 0.5 (0.1-0.6) K/mm3 Eos # (Auto) 0.1 (0-0.3) K/mm3 Baso # (Auto) 0.1 (0.0-0.1) K/mm3 Abs Immat Gran (auto) 0.04 H (0.00-0.031) K/mm3 Absolute Neuts (auto) 6.9 H (1.3-6.7) K/mm3 Absolute Nucleated RBC 0.000 (0.0-0.012) K/mm3 Nucleated RBC % 0.0 (0.0-0.2) % % Immature Plt Fraction 4.3 (0.9-11.2) % PT 12.8 (11.1-14.7) Seconds INR 0.9 APTT 27.7 (22.3-36.8) Seconds Sodium 142 (137-145) mmol/L Potassium 4.3 (3.4-5.0) mmol/L Chloride 109 H (98-107) mmol/L Carbon Dioxide 23 (22-30) mmol/L Anion Gap 10 (4-12) mmol/L BUN 6 L D (7-17) mg/dL Creatinine 0.63 L (0.7-1.0) mg/dL Estim Creat Clear Calc 74 ml/min Estimated GFR > 60 (59 - ) Glucose 98 (65-110) mg/dL POC Capillary Glucose 93 (65-105) mg/dl Calcium 9.9 (8.4-10.2) mg/dL Total Bilirubin 0.4 (0.2-1.3) mg/dL AST 38 H (14-36) U/L ALT 28 (6-35) U/L Alkaline Phosphatase 105 (38-126) U/L Troponin I < 0.012 (0.000-0.034) ng/mL Total Protein 8.0 (6.3-8.2) g/dL Albumin 4.6 (3.5-5.1) g/dL Discharge Plan Discharge Clinical Impression: Acute left-sided weakness, Acute CVA (cerebrovascular accident) Patient Disposition: Still a Patient Condition: Stable Quality Stroke Scale Stroke Scale 1: 1a Level of consciousness: alert-0 1b Level of consciousness questions: answers both correctly-0 1c Level of consciousness commands: obeys both correctly-0 2 Best gaze: normal-0 3 Visual: no visual loss-0 4 Facial palsy: minor paralysis-1 5a Motor: left arm: no drift-0 5b Motor: right arm: no drift-0 6a Motor: left leg: no drift-0 6b Motor: right leg: no drift-0 7 Limb ataxia: absent-0 8 Sensory: pinprick less sharp-1 9 Best language: no aphasia-0 10 Dysarthria: normal-0 11 Extinction and inattention: no abnormality-0 Level:: 2
[2025-04-16 09:14] LABS: Basophils Absolute Auto 0.1 K/mm3 (0.0-0.1); Basophils Percent Auto 0.9 % (0.2-1.2); Eosinophils Absolute Auto 0.1 K/mm3 (0-0.3); Eosinophils Percent Auto 1.2 % (0-4.4); Hematocrit 41.7 % (37.0-47.0); Hemoglobin 13.5 g/dL (12.0-15.0); Immature Granulocyte Absolute 0.04 K/mm3 (0.00-0.031); Immature Granulocyte Percent A 0.4 % (0-0.5); Immature Platelet Fraction Pct 4.3 % (0.9-11.2); Lymphocytes Absolute Auto 3.36 K/mm3 (0.9-3.2); Lymphocytes Percent Auto 30.5 % (18.3-44.2); Mean Corpuscular HGB Conc 32.4 g/dl (32-36); Mean Corpuscular Hemoglobin 30.1 pg (26-34); Mean Corpuscular Volume 92.9 fl (80-100); Mean Platelet Volume 10.1 fl (7.4-10.4); Monocytes Absolute Auto 0.5 K/mm3 (0.1-0.6); Monocytes Percent Auto 4.3 % (2.6-8.5); Neutrophils Absolute Auto 6.9 K/mm3 (1.3-6.7); Neutrophils Percent Auto 62.7 % (45.5-73.1); Platelet Count Result 331 k/mm3 (150-375); Red Blood Count 4.49 M/mm3 (4.2-5.4); Red Cell Distribution Width 13.7 % (11.5-14.5)
[2025-04-16 09:28] LABS: Alanine Aminotransferase 28 U/L (6-35); Albumin Level 4.6 g/dL (3.5-5.1); Alkaline Phosphatase 105 U/L (38-126); Anion Gap 10 mmol/L (4-12); Aspartate Amino Transferase 38 U/L (14-36); Bilirubin,Total 0.4 mg/dL (0.2-1.3); Blood Urea Nitrogen 6 mg/dL (7-17); Calcium 9.9 mg/dL (8.4-10.2); Carbon Dioxide 23 mmol/L (22-30); Chloride 109 mmol/L (98-107); Estimated CRCL calculation 74 ml/min; Estimated Glomerular Filt Rate > 60; Glucose 98 mg/dL (65-110); Potassium 4.3 mmol/L (3.4-5.0); Sodium 142 mmol/L (137-145)
[2025-04-16 09:31] LABS: INR 0.9; Prothrombin Time 12.8 Seconds (11.1-14.7)
[2025-04-16 09:32] LABS: Partial Thromboplastin Time 27.7 Seconds (22.3-36.8)
[2025-04-16 09:40] LABS: Troponin I < 0.012 ng/mL (0.000-0.034)
--- OUTSIDE RECORDS SUMMARY | 2025-04-16 10:12 | XMS_ITS | Referral Summary ---
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 Gender Identity Not on file Sexual Orientation Not on file Last Filed Vital Signs Vital Sign Reading Time Taken Comments Blood Pressure 104/60 10/26/2021 2:54 PM WOOD TYPE CUTTER Pulse 70 10/26/2021 2:54 PM WOOD TYPE CUTTER Temperature - - Respiratory Rate - - Oxygen Saturation 99% 10/26/2021 2:54 PM WOOD TYPE CUTTER Inhaled Oxygen Concentration - - Weight 75.9 kg (167 lb 6.4 oz) 10/26/2021 2:54 P M WOOD TYPE CUTTER Height 160 cm (5' 3 ) 10/26/2021 2:54 PM WOOD TYPE CUTTER Body Mass Index 29.65 10/26/2021 2:54 PM WOOD TYPE CUTTER Plan of Treatment Not on file Insurance [facility] [employer] Address: [address] [address] [facility] HMO/PPO Address: [facility] [address] [place] [address], [place] [address] Care Teams Forming Roll Operator Relationship Specialty Start Date End Date Srikanth Hernandez MD PCP - General Internal Medicine 11/05/17
--- OUTSIDE RECORDS SUMMARY | 2025-04-16 10:12 | XMS_ITS | CONTINUITY OF CARE DOCUMENT ---
Author Name gela ren Address Unknown Organization [facility] Address [address] [address] [place] [address] Phone [phone] Care Team Providers Care All Around Gear Machine Operator Name Role Phone gela ren Unavailable Unavailable
--- OUTSIDE RECORDS SUMMARY | 2025-04-16 10:12 | XMS_ITS | Clinical Summary ---
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 Gender Identity Not on file Sexual Orientation Not on file Obstetrics History Last Filed Vital Signs Vital Sign Reading Time Taken Comments Blood Pressure 104/60 10/26/2021 2:54 PM AUTOMOTIVE TIRE TECHNICIAN Pulse 70 10/26/2021 2:54 PM AUTOMOTIVE TIRE TECHNICIAN Temperature - - Respiratory Rate - - Oxygen Saturation 99% 10/26/2021 2:54 PM AUTOMOTIVE TIRE TECHNICIAN Inhaled Oxygen Concentration - - Weight 75.9 kg (167 lb 6.4 oz) 10/26/2021 2:54 P M AUTOMOTIVE TIRE TECHNICIAN Height 160 cm (5' 3 ) 10/26/2021 2:54 PM AUTOMOTIVE TIRE TECHNICIAN Body Mass Index 29.65 10/26/2021 2:54 PM AUTOMOTIVE TIRE TECHNICIAN Plan of Treatment Not on file Insurance [facility] Care Teams Shot Fireman Relationship Specialty Start Date End Date Srikanth Hernandez MD PCP - General Internal Medicine 11/05/17
[2025-04-16] MEDS: ASPIRIN 81 MG CHEWABLE TABLET 324 MG PO (11:38)
--- NOTE | 2025-04-16 11:40 | PC.NURSE ---
Pt states no longer wanting to be admitted. Pt verbalizes concern to family members at home and understanding to come back if sx worsen. made aware.
--- NOTE | 2025-04-16 12:37 | PC.NURSE ---
EDP talked to pt and pt agreed to be admitted
--- NOTE | 2025-04-16 13:02 | P.HP_ITS ---
H&P: HPI History of Present Illness Date/Time: 04/16/25 13:02 Chief Complaint: Left Sided Numbness Narrative: 65 y/o F with PMH of TIA, ataxia, left carpal tunnel syndrome CVA (right midbrain, 2022, no residual deficits), GERD, and anxiety presents here with left-sided numbness. The patient presents here from home for further evaluation of suspected CVA. She reports he last known well at 7 p.m. on 04/15. She reports she woke up at 3:00 a.m. this morning and noted she had some numbness to her left face. She got up for the day and started her morning routine. Numbness to the left side of her face remained persistent after she had arrived to work. She had a coworker examine her who felt she had a slight left sided facial droop which prompted her to seek care. Left-sided numbness is accompanied by dizziness, headache, and some stutter steps, left foot drag . She denies vision changes. She has a history of a TIA and CVA. She has been evaluated by Neurology with most recent visit in January of 2025. Per their note, the patient has a history of dizziness, ataxia, and a vestibular disorder. She also reported at that time she had numbness in her left upper extremity and has been diagnosed with left carpal tunnel syndrome. Initial VS at presentation: 97.7? F, HR 64, R 14, 149/79, and 100% on RA. ED workup showed: WBC 11.0, no anemia, normal coags, no significant electrolyte derangements, renal function within normal limits, initial troponin negative. Head CT showed unchanged small old right pontine infarct, no acute intracranial process. Head/neck CTA showed a normal CTA of the head and 30% stenosis of the left ICA. CXR showed normal chest. 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 Left carpal tunnel syndrome Ataxia Tobacco use disorder Anxiety Surgical History Surgical History History of cholecystectomy (2008) History of benign breast biopsy (06/26/18) History of laparoscopy (11/21/13) History of stress incontinence procedure using tension free vaginal tape (11/21/13) History of esophagogastroduodenoscopy (09/10/09) History of bilateral salpingo-oophorectomy (09/01/03) History of hysterectomy (1989) Family History Family History Father Cirrhosis Alcoholism Mother Alcoholism Cancer Hypertension Daughter Depression Grandparent Depression Other Cerebrovascular accident Family history of alcoholism Family history of cardiovascular disease Family history of malignant neoplasm Family history of malignant neoplasm of ovary Social History Social History Social History: Surrogate medical decision maker: Irineo Chi (spouse) or Jose Ariasoll (son). Code status: Full code. Smoking packs per day: 1 Smoking cigarettes per day: 20.0 Years smoked: 40 Smoking pack-years: 40.00 Smoking status: Current every day smoker Tobacco type: cigarettes Alcohol intake: current Drinks per week: 1 Substance use: never Substance use type: does not use Do You Feel Safe in your Home?: Yes Lack of Transportation: No Lack of Food: Sometimes True Current Housing: I Have Housing Concerned About Future Housing: No Difficulty Paying Gas/Electric Bills: No Difficulty Paying for Meds: No Currently Unemployed: No Education: High School Diploma/GED Difficulty w/ Childcare or Family Care: No Living arrangements: with family Additional living arrangements comments: Lives with spouse in [place]. 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 Gender identity (if verbalized by the patient): Female Spiritual care concerns: No Meds Home Medications and Allergies Home Medications ?Medication ?Instructions ?Recorded ?Confirmed ?Type alprazolam 0.5 mg tablet 1 mg PO TID PRN anxiety 01/09/21 04/16/25 History aspirin 81 mg chewable tablet 81 mg PO EVERY OTHER DAY 365 days 05/30/23 04/16/25 Rx (Children's Aspirin) #183 tabs acetaminophen 500 mg tablet 1,000 mg (2 x 500 mg) PO TID PRN 01/01/25 04/16/25 Rx (Tylenol Extra Strength) pain #30 tabs atorvastatin 40 mg tablet (Lipitor) 40 mg PO QHS #90 tabs 03/11/25 04/16/25 Rx Allergies Allergy/AdvReac Type Severity Reaction Status Date / Time No Known Allergies Allergy Verified 02/16/25 15:29 Vital Signs Vital Signs - 24 hr 04/16/25 09:15 04/16/25 09:24 04/16/25 09:28 Temperature 97.7 F Pulse Rate 64 63 60 Respiratory Rate 14 14 19 Blood Pressure 149/79 H 149/79 H 149/79 H Pulse Oximetry 100 99 99 Oxygen Delivery Room Air 04/16/25 09:32 04/16/25 09:34 04/16/25 10:02 Temperature Pulse Rate 74 49 L Respiratory Rate 21 H 18 Blood Pressure 146/69 H 157/129 H Pulse Oximetry 97 99 100 Oxygen Delivery Room Air 04/16/25 10:32 04/16/25 11:01 Temperature Pulse Rate 57 L 56 L Respiratory Rate 19 16 Blood Pressure 132/66 150/79 H Pulse Oximetry 99 97 Oxygen Delivery Exam Const: General: comfortable and no acute distress Other: , female, nontoxic appearance HENMT: Face/Nose/Sinus: Normal nares present Mouth: Yes moist mucous membranes Eyes: General: appearance normal, both eyes and all related structures Sclera: sclerae normal Pupils: Equal, round and reactive pupils present EOM: EOMs intact bilaterally Resp: Effort & Inspection: normal respiratory effort Auscultation: clear to auscultation bilaterally Cardio: Rate: regular rate Rhythm: regular rhythm Other: S1-S2 present without murmur, rub, ectopy GI: Other: Abdomen soft, nondistended, nontender. Normoactive bowel sounds in all quadrants. Skin: General skin exam: normal color and no rashes or lesions noted Wounds: no wounds Neuro: Other: very faint lisp (previously required speech as a child, believes she is at baseline). Slight left facial droop. No aphasia. Numbness to the left cheek, left chin, spares forehead. +5 in all extremities. Extrem: General: normal to inspection Psych: Mental Status: mental status grossly normal Affect: normal affect Other: Good insight judgment, pleasant H&P: Results Labs Labs: Short CBC 04/16/25 Range/Units 09:03 WBC 11.0 H (4.5-10.0) K/mm3 Hgb 13.5 (12.0-15.0) g/dL Hct 41.7 (37.0-47.0) % Plt Count 331 (150-375) k/mm3 BMP 04/16/25 09:03 Sodium 142 Potassium 4.3 Chloride 109 H Carbon Dioxide 23 BUN 6 L D Creatinine 0.63 L Glucose 98 Calcium 9.9 Cardiac Enzymes 04/16/25 Range/Units 09:03 Troponin I < 0.012 (0.000-0.034) ng/mL Liver Function 04/16/25 Range/Units 09:03 Total Bilirubin 0.4 (0.2-1.3) mg/dL AST 38 H (14-36) U/L ALT 28 (6-35) U/L Alkaline Phosphatase 105 (38-126) U/L Albumin 4.6 (3.5-5.1) g/dL Assessment and Plan Assessment and plan (1) Acute left-sided weakness: Code(s): R53.1 - Weakness Status: Acute Assessment and Plan: New deficits of left facial numbness, left upper extremity numbness discovered at 3:00 a.m. on 04/16. Last known well at 7 pm on 04/15. - admission for observation and telemetry - not candidate for thrombolytics due to timeframe -not candidate for thrombectomy, no LVO on CTA - CXR: Normal chest - Head CT: Unchanged small old right pontine infarct. No acute intracranial process. - CTA head/neck: 1. Normal CTA head. 2. CTA of the neck. Percent stenosis per NASCET criteria is 30%on the left side. - neurology consulted - brain MRI w/wo ordered - echo w/Bubble study completed in 2022. normal systolic function and diastolic function. Intact interatrial septum. No valvular disease. - neuro checks Q4 - ST evaluation - will hold on PT/OT eval until MRI results - monitor daily labs. check/update lipid panel and A1C - continue Atorvastatin 40 mg PO and daily ASA -> Lipitor increased to 80 mg by Neurology - start Plavix 75 mg PO - consider 30 day event monitoring at discharge (2) HTN (hypertension): Qualifiers: Hypertension type: primary hypertension Qualified Code(s): I10 - Esse ntial (primary) hypertension Code(s): I10 - Essential (primary) hypertension Status: Chronic Assessment and Plan: - chronic, currently 150/79 - not currently on a daily antihypertensive - monitor Plan Diet: Heart healthy GI Prophylaxis: Not currently indicated DVT Prophylaxis: SCDs IV fluids: None Lines/Tubes: Peripheral IV Code Status: Full code Quality VTE Prophylaxis VTE prophylaxis: mechanical ordered Hospitalist MIPS Advance Care Plan I have confirmed that the patient's Advanced Care Plan is present, code status is documented, or surrogate decision maker is listed in patient medical record.: Yes Medication Reconciliation I have utilized all available resources to obtain, update and review the patients current medications (includes all prescriptions, OTC, herbals, cannabis, and nutritional supplements).: Yes
--- NOTE | 2025-04-16 13:06 | ADMGEN ---
This patient, Brianna Chi, was admitted to [facility] Surg Room 313-01. Patient/family oriented to hospital policies and general routines including ID bracelet, bed and alarms, visiting hours, pain management, procedures, bathroom and other care routines, personal items, smoking policy, room service/diet, and visiting hours. Information on how to activate the Rapid Response Team has been discussed. Patient/Family are encouraged to report perceived risks to care and to ask questions if they do not understand what they are told or what they should do.
--- NOTE | 2025-04-16 15:08 | PCSTNOTE ---
Please refer to the Bedside Swallow Evaluation in the EMR. Please note, silent aspiration cannot be ruled out at bedside.
--- NOTE | 2025-04-16 16:27 | P.CONNEU_ITS ---
Assessment and Plan Assessment and plan (1) Acute CVA (cerebrovascular accident): Code(s): I63.9 - Cerebral infarction, unspecified Status: Acute (2) Lumbar spondylosis: Code(s): M47.816 - Spondylosis without myelopathy or radiculopathy, lumbar region Status: Acute Plan CT scan of the brain and CT angiogram head and neck were reviewed which did not show any significant abnormality. She was found to her 30% narrowing of the left internal carotid artery. She will require MRI of the brain and follow-up. I agree with adding Plavix to her current therapy and continue the atorvastatin. However her last LDL on 02/28/2025 was 86 and hence suggest increase the dose of atorvastatin to 80 mg a day. 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 She thought that she had some numbness in the left side of the face and she asked 1 of the coworkers to look at her face to see if there was any asymmetry. Subsequently she developed some numbness in the left side of the body including her left upper and lower limb and a also felt some weakness in the left lower limb. She does have history of cerebrovascular disease and she was found to have a pontine infarct in the past. She has seen me in my office for dizziness which continues to be a problem for her. She still smokes about 3/4 pack of cigarettes a day. She has had a EMG nerve can study of the left upper limb on 03/26/2025 by myself that has shown evidence of minimal left ulnar neuropathy at elbow. I had seen her in my office on 02/16/2025 for complaints of dizziness, ataxia. Her symptoms did not improve despite vestibular therapy done by herself at home. She also sees Dr. Ervin for lower back pain and has been advised physical therapy and pain management. Her current medications include atorvastatin 40 mg a day and aspirin 81 mg a day. She also had EMG nerve can study of the lower limbs on 09/04/2024 which did not show any abnormalities. Overall findings were considered within normal limits. MRI of the brain was performed on 05/12/2024 and has shown small right pontine lacunar infarct. White matter changes were seen. Review of Systems 2 Review of Systems: All systems reviewed & are unremarkable except as noted in HPI and below [facility] Past Medical History Medical History Lumbar stenosis with neurogenic claudication Gastroesophageal reflux disease Irritable bowel syndrome HTN (hypertension) HLD (hyperlipidemia) TIA (transient ischemic attack) 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 Left carpal tunnel syndrome Ataxia Tobacco use disorder Anxiety Surgical History Surgical History History of cholecystectomy (2008) History of benign breast biopsy (06/26/18) History of laparoscopy (11/21/13) History of stress incontinence procedure using tension free vaginal tape (11/21/13) History of esophagogastroduodenoscopy (09/10/09) History of bilateral salpingo-oophorectomy (09/01/03) History of hysterectomy (1989) Family History Family History Father Cirrhosis Alcoholism Mother Alcoholism Cancer Hypertension Daughter Depression Grandparent Depression Other Cerebrovascular accident Family history of alcoholism Family history of cardiovascular disease Family history of malignant neoplasm Family history of malignant neoplasm of ovary Social History Social History Social History: Surrogate medical decision maker: Irineo Chi (spouse) or Jose Díaz (son). Code status: Full code. Smoking packs per day: 1 Smoking cigarettes per day: 20.0 Years smoked: 40 Smoking pack-years: 40.00 Smoking status: Current every day smoker Tobacco type: cigarettes Alcohol intake: current Drinks per week: 1 Substance use: never Substance use type: does not use Do You Feel Safe in your Home?: Yes Lack of Transportation: No Lack of Food: Sometimes True Current Housing: I Have Housing Concerned About Future Housing: No Difficulty Paying Gas/Electric Bills: No Difficulty Paying for Meds: No Currently Unemployed: No Education: High School Diploma/GED Difficulty w/ Childcare or Family Care: No Living arrangements: with family Additional living arrangements comments: Lives with spouse in [place]. 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 Gender identity (if verbalized by the patient): Female Spiritual care concerns: No Meds Home Medications and Allergies Home Medications ?Medication ?Instructions ?Recorded ?Confirmed ?Type alprazolam 0.5 mg tablet 1 mg PO TID PRN anxiety 01/09/21 04/16/25 History aspirin 81 mg chewable tablet 81 mg PO EVERY OTHER DAY 365 days 05/30/23 04/16/25 Rx (Children's Aspirin) #183 tabs acetaminophen 500 mg tablet 1,000 mg (2 x 500 mg) PO TID PRN 01/01/25 04/16/25 Rx (Tylenol Extra Strength) pain #30 tabs atorvastatin 40 mg tablet (Lipitor) 40 mg PO QHS #90 tabs 03/11/25 04/16/25 Rx Allergies Allergy/AdvReac Type Severity Reaction Status Date / Time No Known Allergies Allergy Verified 02/16/25 15:29 Vital Signs Vital Signs - 24 hr 04/16/25 09:15 04/16/25 09:24 04/16/25 09:28 Temperature 97.7 F Pulse Rate 64 63 60 Respiratory Rate 14 14 19 Blood Pressure 149/79 H 149/79 H 149/79 H Pulse Oximetry 100 99 99 Oxygen Delivery Room Air 04/16/25 09:32 04/16/25 09:34 04/16/25 10:02 Temperature Pulse Rate 74 49 L Respiratory Rate 21 H 18 Blood Pressure 146/69 H 157/129 H Pulse Oximetry 97 99 100 Oxygen Delivery Room Air 04/16/25 10:32 04/16/25 11:01 04/16/25 15:00 Temperature Pulse Rate 57 L 56 L Respiratory Rate 19 16 Blood Pressure 132/66 150/79 H Pulse Oximetry 99 97 Oxygen Delivery Room Air 04/16/25 15:09 Temperature 97.6 F Pulse Rate 63 Respiratory Rate 16 Blood Pressure 134/68 Pulse Oximetry 100 Oxygen Delivery Exam 2 Const: General: cooperative, well developed and alert O rientation/consciousness: patient oriented x3 HENMT: Head: atraumatic Mouth: Yes oropharynx normal Eyes: Alignment and Position: position normal Pupils: Equal, round and reactive pupils present EOM: EOMs intact bilaterally Neck: Neck: supple Resp: Effort & Inspection: normal respiratory effort Auscultation: clear to auscultation bilaterally Neuro: General: patient oriented x3 Cranial nerves: Yes CN's II-XII intact bilaterally ( Minimal flattening of the left nasolabial fold), Yes facial sensation intact/muscles of mastication intact, Yes Equal, round and reactive pupils present and Yes Midline tongue present Cognition (Neuro): normal cognition Speech: normal speech Motor exam (neuro): 5/5 motor strength present throughout Sensory Exam: normal sensation Coordination: f [id number] test normal and Normal rapid alternating movements of the distal upper extremity present (Neuro) Results Labs 04/16/25 09:03 04/16/25 09:03 Labs: Short CBC 04/16/25 Range/Units 09:03 WBC 11.0 H (4.5-10.0) K/mm3 Hgb 13.5 (12.0-15.0) g/dL Hct 41.7 (37.0-47.0) % Plt Count 331 (150-375) k/mm3 BMP 04/16/25 09:03 Sodium 142 Potassium 4.3 Chloride 109 H Carbon Dioxide 23 BUN 6 L D Creatinine 0.63 L Glucose 98 Calcium 9.9 Cardiac Enzymes 04/16/25 Range/Units 09:03 Troponin I < 0.012 (0.000-0.034) ng/mL Liver Function 04/16/25 Range/Units 09:03 Total Bilirubin 0.4 (0.2-1.3) mg/dL AST 38 H (14-36) U/L ALT 28 (6-35) U/L Alkaline Phosphatase 105 (38-126) U/L Albumin 4.6 (3.5-5.1) g/dL
[2025-04-16] MEDS: ATORVASTATIN 40 MG TABLET 80 MG PO (20:26)
[2025-04-16] MEDS: ALPRAZolam (*CRX) 0.5 MG TABLET 1 MG PO (20:30)
[2025-04-17 05:36] VITALS: BP 123/55; PULSE 56; RESP 18; TEMP 36.6; O2SAT 98
[2025-04-17 06:07] LABS: Basophils Absolute Auto 0.1 K/mm3 (0.0-0.1); Eosinophils Absolute Auto 0.2 K/mm3 (0-0.3); Eosinophils Percent Auto 2.8 % (0-4.4); Hematocrit 41.5 % (37.0-47.0); Hemoglobin 13.2 g/dL (12.0-15.0); Immature Granulocyte Absolute 0.03 K/mm3 (0.00-0.031); Immature Granulocyte Percent A 0.4 % (0-0.5); Lymphocytes Percent Auto 31.9 % (18.3-44.2); Mean Corpuscular HGB Conc 31.8 g/dl (32-36); Mean Corpuscular Hemoglobin 30.3 pg (26-34); Mean Corpuscular Volume 95.4 fl (80-100); Mean Platelet Volume 10.5 fl (7.4-10.4); Monocytes Absolute Auto 0.5 K/mm3 (0.1-0.6); Monocytes Percent Auto 5.9 % (2.6-8.5); Neutrophils Absolute Auto 4.7 K/mm3 (1.3-6.7); Platelet Count Result 282 k/mm3 (150-375); Red Blood Count 4.35 M/mm3 (4.2-5.4); Red Cell Distribution Width 13.8 % (11.5-14.5); White Blood Count 8.1 K/mm3 (4.5-10.0)
[2025-04-17 06:19] LABS: Alanine Aminotransferase 25 U/L (6-35); Alkaline Phosphatase 78 U/L (38-126); Anion Gap 5 mmol/L (4-12); Aspartate Amino Transferase 32 U/L (14-36); Bilirubin,Total 0.3 mg/dL (0.2-1.3); Blood Urea Nitrogen 12 mg/dL (7-17); Calcium 9.4 mg/dL (8.4-10.2); Carbon Dioxide 26 mmol/L (22-30); Chloride 110 mmol/L (98-107); Cholesterol 146 mg/dL (0-200); Estimated CRCL calculation 65 ml/min; Estimated Glomerular Filt Rate > 60; Glucose 93 mg/dL (65-110); HDL Direct 75 mg/dL; Potassium 4.4 mmol/L (3.4-5.0); Sodium 141 mmol/L (137-145); Triglycerides 67 mg/dL (<150)
[2025-04-17 06:28] LABS: LDL Cholesterol Direct 47 mg/dL
--- NOTE | 2025-04-17 07:42 | P.PNIM_ITS ---
Progress Note: A&P Assessment and Plan (1) Acute left-sided weakness: Code(s): R53.1 - Weakness Status: Acute Assessment and Plan: New deficits of left facial numbness, left upper extremity numbness discovered at 3:00 a.m. on 04/16. Last known well at 7 pm on 04/15. - admission for observation and telemetry - not candidate for thrombolytics due to timeframe - not candidate for thrombectomy, no LVO on CTA - CXR: Normal chest - Head CT: Unchanged small old right pontine infarct. No acute intracranial process. - CTA head/neck: 1. Normal CTA head. 2. CTA of the neck. Percent stenosis per NASCET criteria is 30%on the left side. - neurology consulted - brain MRI w/wo ordered - echo w/Bubble study completed in 2022. normal systolic function and diastolic function. Intact interatrial septum. No valvular disease. - neuro checks Q4 - ST evaluation - will hold on PT/OT eval until MRI results - monitor daily labs. check/update lipid panel and A1C - continue Atorvastatin 40 mg PO and daily ASA -> Lipitor increased to 80 mg by Neurology - start Plavix 75 mg PO - consider 30 day event monitoring at discharge (2) HTN (hypertension): Qualifiers: Hypertension type: primary hypertension Qualified Code(s): I10 - Essential (primary) hypertension Code(s): I10 - Essential (primary) hypertension Status: Chronic Assessment and Plan: - chronic, currently 123/55 - not currently on a daily antihypertensive - monitor Plan Diet: Heart healthy GI Prophylaxis: Not currently indicated DVT Prophylaxis: SCDs IV fluids: None Lines/Tubes: Peripheral IV Code Status: Full code Subjective Date/time seen: 04/17/25 07:42 Interval history: 65 y/o F with PMH of TIA, ataxia, left carpal tunnel syndrome CVA (right midbrain, 2022, no residual deficits), GERD, and anxiety presents here with left-sided numbness. 04/17/2025 Review of Systems Review of Systems: All systems reviewed & are unremarkable except as noted in HPI and below Exam Narrative: very faint lisp (previously required speech as a child, belives she is at baseline). Slight left facial droop. No aphasia. Const: General: comfortable and no acute distress Other: , female, nontoxic appearance HENMT: Face/Nose/Sinus: Normal nares present Mouth: Yes moist mucous membranes Eyes: General: appearance normal, both eyes and all related structures Sclera: sclerae normal Pupils: Equal, round and reactive pupils present EOM: EOMs intact bilaterally Resp: Effort & Inspection: normal respiratory effort Auscultation: clear to auscultation bilaterally Cardio: Rate: regular rate Rhythm: regular rhythm Other: S1-S2 present without murmur, rub, ectopy GI: Other: Abdomen soft, nondistended, nontender. Normoactive bowel sounds in all quadrants. Skin: General skin exam: normal color and no rashes or lesions noted Wounds: no wounds Neuro: Cranial nerves: Yes Equal, round and reactive pupils present Other: very faint lisp (previously required speech as a child, believes she is at baseline). Slight left facial droop. No aphasia. Numbness to the left cheek, left chin, spares forehead. +5 in all extremities. Extrem: General: normal to inspection Psych: Mental Status: mental status grossly normal Affect: normal affect Other: Good insight judgment, pleasant Objective Data Vital Signs Vital Signs: Vital Signs - 24 hr 04/16/25 09:15 04/16/25 09:24 04/16/25 09:28 Temperature 97.7 F Pulse Rate 64 63 60 Respiratory Rate 14 14 19 Blood Pressure 149/79 H 149/79 H 149/79 H Pulse Oximetry 100 99 99 Oxygen Delivery Room Air 04/16/25 09:32 04/16/25 09:34 04/16/25 10:02 Temperature Pulse Rate 74 49 L Respiratory Rate 21 H 18 Blood Pressure 146/69 H 157/129 H Pulse Oximetry 97 99 100 Oxygen Delivery Room Air 04/16/25 10:32 04/16/25 11:01 04/16/25 15:00 Temperature Pulse Rate 57 L 56 L Respiratory Rate 19 16 Blood Pressure 132/66 150/79 H Pulse Oximetry 99 97 Oxygen Delivery Room Air 04/16/25 15:09 04/16/25 20:00 04/16/25 21:21 Temperature 97.6 F 98.3 F Pulse Rate 63 54 L 54 L Respiratory Rate 16 18 18 Blood Pressure 134/68 118/65 Pulse Oximetry 100 98 98 Oxygen Delivery Room Air 04/17/25 05:36 Temperature 97.9 F Pulse Rate 56 L Respiratory Rate 18 Blood Pressure 123/55 L Pulse Oximetry 98 Oxygen Delivery Intake/Output Intake/Output: Intake & Output 04/14/25 04/15/25 04/16/25 04/17/25 23:59 23:59 23:59 23:59 Intake Total 330 Balance 330 Meds/Results Medications: Active Medications Generic Name Dose Route Start Last Admin Trade Name Freq PRN Reason Stop Dose Admin Acetaminophen 1,000 mg 04/16/25 13:28 Acetaminophen 500 Mg Tablet PO TID PRN pain Alprazolam 1 mg 04/16/25 13:28 04/16/25 20:30 Alprazolam (*Crx) 0.5 Mg Tablet PO 1 mg TID PRN Administration anxiety Aspirin 81 mg 04/17/25 08:00 Aspirin 81 Mg Chewable Tablet PO DAILY@0800 [facility] Atorvastatin Calcium 80 mg 04/16/25 21:00 04/16/25 20:26 Atorvastatin 40 Mg Tablet PO 80 mg QHS MAMADOU Administration Clopidogrel Bisulfate 75 mg 04/17/25 09:00 Clopidogrel Bisulfate 75 Mg Tablet PO QAM [facility] Radiology Results: ITS Impressions Head CT 04/16/25 09:09 IMPRESSION: 1. Unchanged small old right pontine infarct. No acute intracranial process. Head/Neck CTA 04/16/25 09:18 IMPRESSION: 1. Normal CTA head. 2. CTA of the neck. Percent stenosis per NASCET criteria is 30%on the left vandana e. Chest X-Ray 04/16/25 10:07 Impression: Normal chest. Labs Labs: Laboratory Results - last 24 hr 04/16/25 04/16/25 04/17/25 09:01 09:03 05:33 WBC 11.0 H 8.1 RBC 4.49 4.35 Hgb 13.5 13.2 Hct 41.7 41.5 MCV 92.9 95.4 MCH 30.1 30.3 MCHC 32.4 31.8 L RDW 13.7 13.8 Plt Count 331 282 MPV 10.1 10.5 H Immature Gran % (Auto) 0.4 0.4 Neut % (Auto) 62.7 58.0 Lymph % (Auto) 30.5 31.9 [place] % (Auto) 4.3 5.9 Eos % (Auto) 1.2 2.8 Baso % (Auto) 0.9 1.0 Lymph # (Auto) 3.36 H 2.60 [place] # (Auto) 0.5 0.5 Eos # (Auto) 0.1 0.2 Baso # (Auto) 0.1 0.1 Abs Immat Gran (auto) 0.04 H 0.03 Absolute Neuts (auto) 6.9 H 4.7 Absolute Nucleated RBC 0.000 0.000 Nucleated RBC % 0.0 0.0 % Immature Plt Fraction 4.3 PT 12.8 INR 0.9 APTT 27.7 Sodium 142 141 Potassium 4.3 4.4 Chloride 109 H 110 H Carbon Dioxide 23 26 Anion Gap 10 5 BUN 6 L D 12 D Creatinine 0.63 L 0.72 Estim Creat Clear Calc 74 65 Estimated GFR > 60 > 60 Glucose 98 93 POC Capillary Glucose 93 Calcium 9.9 9.4 Total Bilirubin 0.4 0.3 AST 38 H 32 ALT 28 25 Alkaline Phosphatase 105 78 Troponin I < 0.012 Total Protein 8.0 7.0 Albumin 4.6 4.0 Triglycerides 67 Cholesterol 146 LDL Cholesterol Direct 47 HDL Direct 75 Quality VTE Prophylaxis VTE prophylaxis: mechanical ordered
[2025-04-17 08:00] LABS: Hemoglobin A1C 5.7 % (<5.7)
[2025-04-17 09:00] VITALS: O2SAT 98
[2025-04-17] MEDS: CLOPIDOGREL BISULFATE 75 MG TABLET PO (09:18)
[2025-04-17] MEDS: ASPIRIN 81 MG CHEWABLE TABLET PO (09:18)
[2025-04-17] MEDS: ALPRAZolam (*CRX) 0.5 MG TABLET 1 MG PO (09:30)
--- NOTE | 2025-04-17 10:25 | PM.DS ---
DS: Admitting Diagnosis Discharge Date 04/17/2025 Admitting Diagnosis Left sided numbness DS: Discharge Diagnosis Discharge Diagnosis (1) Acute left-sided weakness: Code(s): R53.1 - Weakness Status: Acute (2) HTN (hypertension): Qualifiers: Hypertension type: primary hypertension Qualified Code(s): I10 - Essential (primary) hypertension Code(s): I10 - Essential (primary) hypertension Status: Chronic DS: Summary Hospital Course Reason for hospitalization: Left sided numbness Hospital Course: 65 y/o F with PMH of TIA, ataxia, left carpal tunnel syndrome CVA (right midbrain, 2022, no residual deficits), GERD, and anxiety presents here with left-sided numbness. The patient presents here from home for further evaluation of suspected CVA. She reports he last known well at 7 p.m. on 04/15. She reports she woke up at 3:00 a.m. this morning and noted she had some numbness to her left face. She got up for the day and started her morning routine. Numbness to the left side of her face remained persistent after she had arrived to work. She had a coworker examine her who felt she had a slight left sided facial droop which prompted her to seek care. Left-sided numbness is accompanied by dizziness, headache, and some stutter steps, left foot drag . She denies vision changes. She has a history of a TIA and CVA. She has been evaluated by Neurology with most recent visit in January of 2025. Per their note, the patient has a history of dizziness, ataxia, and a vestibular disorder. She also reported at that time she had numbness in her left upper extremity and has been diagnosed with left carpal tunnel syndrome. Initial VS at presentation: 97.7? F, HR 64, R 14, 149/79, and 100% on RA. ED workup showed: WBC 11.0, no anemia, normal coags, no significant electrolyte derangements, renal function within normal limits, initial troponin negative. Head CT showed unchanged small old right pontine infarct, no acute intracranial process. Head/neck CTA showed a normal CTA of the head and 30% stenosis of the left ICA. CXR showed normal chest. Neurology consult regarding possible acute CVA. CT scan of the brain and CT head/neck showed no acute intracranial abnormalities. Brain MRI was obtained and showed small right pontine old lacunar infarct, but no acute intracranial process. Also showed small unchanged focus of susceptibility artifact and right frontal lobe, and mild unchanged scattered nonspecific white matter T2 hyperintensity, both within normal limits for age and likely sequela of chronic small vessel ischemic disease. These findings are chronic and can be followed up with the outpatient setting with Neurology. Patient does follow with Dr. Arpit Valdovinos manages her atorvastatin. Cbc and CMP look unremarkable. Patient expressed interest in being discharged today and she is hemodynamically stable and requires no further workup at this time. Plan for discharge home with appropriate follow-up with her PCP and neurologist in the outpatient setting. We will start Plavix 75 mg to be taken orally once a day for 30 days, will recommend that she follow-up with her primary for continued treatment. Status at Discharge Functional status at discharge: independent ambulation Overall status at discharge: patient is back to baseline Time Spent with Patient Time attestation: Total time spent providing and/or coordinating discharge services:35 Exam Narrative: very faint lisp (previously required speech as a child, belives she is at baseline). Slight left facial droop. No aphasia. Const: Other: , female, nontoxic appearance Cardio: Other: S1-S2 present without murmur, rub, ectopy GI: Other: Abdomen soft, nondistended, nontender. Normoactive bowel sounds in all quadrants. Neuro: Other: very faint lisp (previously required speech as a child, believes she is at baseline). Slight left facial droop. No aphasia. Numbness to the left cheek, left chin, spares forehead. +5 in all extremities. Psych: Other: Good insight judgment, pleasant DS: Data Data Completed and Pending Labs on day of discharge: Labs from last 24 hours 04/17/25 05:33 WBC 8.1 RBC 4.35 Hgb 13.2 Hct 41.5 MCV 95.4 MCH 30.3 MCHC 31.8 L RDW 13.8 Plt Count 282 MPV 10.5 H Immature Gran % (Auto) 0.4 Neut % (Auto) 58.0 Lymph % (Auto) 31.9 [place] % (Auto) 5.9 Eos % (Auto) 2.8 Baso % (Auto) 1.0 Lymph # (Auto) 2.60 [place] # (Auto) 0.5 Eos # (Auto) 0.2 Baso # (Auto) 0.1 Abs Immat Gran (auto) 0.03 Absolute Neuts (auto) 4.7 Absolute Nucleated RBC 0.000 Nucleated RBC % 0.0 Sodium 141 Potassium 4.4 Chloride 110 H Carbon Dioxide 26 Anion Gap 5 BUN 12 D Creatinine 0.72 Estim Creat Clear Calc 65 Estimated GFR > 60 Glucose 93 Hemoglobin A1c 5.7 Calcium 9.4 Total Bilirubin 0.3 AST 32 ALT 25 Alkaline Phosphatase 78 Total Protein 7.0 Albumin 4.0 Triglycerides 67 Cholesterol 146 LDL Cholesterol Direct 47 HDL Direct 75 Discharge Plan Discharge Attending physician on discharge: Joselito Chino Consulting providers: Daria Munson; Migue Corbett Discharging Clinician: Migue Corbett Anticipated Discharge Date/Time: 04/17/25 10:21 Patient Disposition: Home Activity: as tolerated Diet: as tolerated Discharge Instructions: Take all medications as prescribed even if feeling better Eat well balanced meals and stay hydrated Strict bleeding precautions since you are being started on Plavix including shaving with an electric razor, holding pressure for greater than 20 minutes for injury, protection of had with any falls, etc. Follow-up with neurology in 6-8 weeks Change positions slowly taking a break in between each position change If you should experience any chest pain, shortness of breath, temps >100.4 or any other worrisome symptoms please follow up with your PCP come back to the hospital Follow up with your primary in 1 weeks It has been a pleasure taking care of you thank you for using our services Patient Instructions: Antibiotic Form, Aspirin (By mouth) Patient Language: Spanish Stand Alone Forms: General Discharge Information Follow-up/Referrals: Srikanth Hernandez MD [Primary Care Provider] - Daria Munson MD [Physician] - Discharge Medications: New clopidogrel 75 mg Tablet 75 mg PO QAM 30 Days Qty: 30 0RF Continued alprazolam 0.5 mg tablet 1 mg PO TID PRN (Reason: anxiety) aspirin [Children's Aspirin] 81 mg Tablet,Chewable 81 mg PO EVERY OTHER DAY 365 Days Qty: 183 0RF acetaminophen [Tylenol Extra Strength] 500 mg tablet 1,000 mg PO TID PRN (Reason: pain) Qty: 30 0RF atorvastatin [Lipitor] 40 mg tablet 40 mg PO QHS Qty: 90 1RF Date of admission: 04/16/25 11:29 Primary Care Provider: Srikanth Hernandez Admitting Provider: Farhat Anaya Attending physician on admission: Farhat Anaya Condition: Stable Quality VTE Prophylaxis VTE prophylaxis: mechanical ordered
== END 2025-04-17 11:30 | disposition home or self-care (01) ==
LOC: ANHED 11:12 → ANH3MEDSUR 12:30
PROVIDERS: Student in an Organized Health Care Education/Training Program; Admitting Provider General Practice; Emergency Provider Emergency Medicine; PCP Internal Medicine; Visit Provider Family Medicine
DX: R53.1 Weakness (principal); I10 Essential (primary) hypertension; Z86.73 Personal history of transient ischemic attack (TIA), and cerebral infarction without residual deficits; R27.0 Ataxia, unspecified; M47.816 Spondylosis without myelopathy or radiculopathy, lumbar region; M48.062 Spinal stenosis, lumbar region with neurogenic claudication; G56.02 Carpal tunnel syndrome, left upper limb; K21.9 Gastro-esophageal reflux disease without esophagitis; F41.9 Anxiety disorder, unspecified; K58.9 Irritable bowel syndrome, unspecified; E78.5 Hyperlipidemia, unspecified; F17.210 Nicotine dependence, cigarettes, uncomplicated; Z79.899 Other long term (current) drug therapy
CPT/HCPCS: 36415; 70450; 70496; 70498; 70553; 71045; 80053; 80061; 82948; 83036; 84484; 85025; 85055; 85610; 85730; 92610; 93005; 99285; A9270; A9579; G0378; G0379; Q9967

== ENCOUNTER 2025-06-19 15:34 | Outpatient (CLI) | payer OTHER, SELFPAY ==
--- NOTE | ~2025-06-19 | MM_ITS ---
EXAMINATION: MM screening baljinder BI w tiffany HISTORY: Screening TECHNIQUE: Craniocaudal and mediolateral oblique 3-D tomosynthesis images were obtained and synthetic 2-D images were generated. CAD analysis was submitted and interpreted. COMPARISON: Comparison to multiple prior studies sequentially, with oldest reviewed study dated 08/26. BREAST PARENCHYMAL COMPOSITION: Not dense: There are scattered areas of fibroglandular density. FINDINGS: There is no evidence of suspicious mass, calcification, or architectural distortion to sugg est malignancy in either breast. There has been no suspicious interval change. IMPRESSION: 1. No mammographic evidence of malignancy. 2. Recommend routine screening mammography in one year. BI-RADS Category 1: Negative Reviewed, dictated and finalized at location A.
--- OUTSIDE RECORDS SUMMARY | 2025-06-19 15:38 | XMS_ITS | Clinical Summary ---
Author Organization [facility] [address] Address [address] [place] [address] Care Team Providers Care Practice Specialist Name Role Phone Srikanth Hernandez MD Primary Care Provider [phone] Allergies No known active allergies Medications ALPRAZolam [...] on file Legal Sex Female 11:59 PM DRAIN TECHNICIAN Gender Identity Not on file Sexual Orientation Not on file Obstetrics History Last Filed Vital Signs Vital Sign Reading Time Taken Comments Blood Pressure 104/60 10/26/2021 2:54 PM DRAIN TECHNICIAN Pulse 70 10/26/2021 2:54 PM DRAIN TECHNICIAN Temperature - - Respiratory Rate - - Oxygen Saturation 99% 10/26/2021 2:54 PM DRAIN TECHNICIAN Inhaled Oxygen Concentration - - Weight 75.9 kg (167 lb 6.4 oz) 10/26/2021 2:54 P M DRAIN TECHNICIAN Height 160 cm (5' 3) 10/26/2021 2:54 PM DRAIN TECHNICIAN Body Mass Index 29.65 10/26/2021 2:54 PM DRAIN TECHNICIAN Plan of Treatment Not on file Insurance [facility] Care Teams Practice Specialist Relationship Specialty Start Date End Date Srikanth Hernandez MD PCP - General Internal Medicine 11/05/17
--- OUTSIDE RECORDS SUMMARY | 2025-06-19 15:39 | XMS_ITS | Clinical Summary ---
Author Organization [facility] Address [address] [place] [address] Care Team Providers Care Radio Journalist Name Role Phone Unavailable Primary Care Provider [...]
--- OUTSIDE RECORDS SUMMARY | 2025-06-19 15:39 | XMS_ITS | Referral Summary ---
Author Organization [facility] [place] [address] Address [address] [place] [address] Care Team Providers Care Track Helper Name Role Phone Srikanth Hernandez MD Primary Care Provider [phone] Allergies No known active allergies Medications ALPRAZolam [...] on file Legal Sex Female 11:59 PM INDUSTRIAL THERAPIST Gender Identity Not on file Sexual Orientation Not on file Last Filed Vital Signs Vital Sign Reading Time Taken Comments Blood Pressure 104/60 10/26/2021 2:54 PM INDUSTRIAL THERAPIST Pulse 70 10/26/2021 2:54 PM INDUSTRIAL THERAPIST Temperature - - Respiratory Rate - - Oxygen Saturation 99% 10/26/2021 2:54 PM INDUSTRIAL THERAPIST Inhaled Oxygen Concentration - - Weight 75.9 kg (167 lb 6.4 oz) 10/26/2021 2:54 P M INDUSTRIAL THERAPIST Height 160 cm (5' 3) 10/26/2021 2:54 PM INDUSTRIAL THERAPIST Body Mass Index 29.65 10/26/2021 2:54 PM INDUSTRIAL THERAPIST Plan of Treatment Not on file Insurance [facility] [employer] Address: [address] [address] [facility] HMO/PPO Address: [facility] [address] [place] [address], [place] [address] Care Teams Track Helper Relationship Specialty Start Date End Date Srikanth Hernandez MD PCP - General Internal Medicine 11/05/17
== END 2025-06-19 15:35 | disposition home or self-care (01) ==
LOC: ANHIMG 15:37
PROVIDERS: PCP Internal Medicine; Visit Provider Obstetrics & Gynecology
DX: Z12.31 Encounter for screening mammogram for malignant neoplasm of breast (principal)
CPT/HCPCS: 77063; 77067

== ENCOUNTER 2025-06-24 11:38 | Emergency (ER) | payer OTHER, SELFPAY ==
--- NOTE | 2025-06-24 11:41 | ECG_ITS ---
Test Date: 2025-06-24 11:49:52 Measurements Intervals [place] Rate: 62 P: 42 [place]: 135 QRS: 62 QRSD: 86 T: 51 QT: 418 QTc: 425 Interpretive Statements SINUS RHYTHM Compared to ECG 04/16/2025 09:20:30 No significant changes Electronically Signed On 06-24-2025 13:10:49 CDT by Ray Howard D.O
[2025-06-24 11:45] VITALS: BP 147/82; PULSE 70; RESP 16; TEMP 36.8; O2SAT 100
--- OUTSIDE RECORDS SUMMARY | 2025-06-24 11:58 | XMS_ITS | Clinical Summary ---
Author Organization [facility] [place] [address] Address [address] [place] [address] Care Team Providers Care Welding Specialist Name Role Phone Srikanth Hernandez MD Primary Care Provider [phone] Allergies No known active allergies Medications ALPRAZolam [...] on file Legal Sex Female 11:59 PM CATH LAB RADIOLOGY TECHNICIAN Gender Identity Not on file Sexual Orientation Not on file Obstetrics History Last Filed Vital Signs Vital Sign Reading Time Taken Comments Blood Pressure 104/60 10/26/2021 2:54 PM CATH LAB RADIOLOGY TECHNICIAN Pulse 70 10/26/2021 2:54 PM CATH LAB RADIOLOGY TECHNICIAN Temperature - - Respiratory Rate - - Oxygen Saturation 99% 10/26/2021 2:54 PM CATH LAB RADIOLOGY TECHNICIAN Inhaled Oxygen Concentration - - Weight 75.9 kg (167 lb 6.4 oz) 10/26/2021 2:54 P M CATH LAB RADIOLOGY TECHNICIAN Height 160 cm (5' 3) 10/26/2021 2:54 PM CATH LAB RADIOLOGY TECHNICIAN Body Mass Index 29.65 10/26/2021 2:54 PM CATH LAB RADIOLOGY TECHNICIAN Plan of Treatment Not on file Insurance [facility] Care Teams Welding Specialist Relationship Specialty Start Date End Date Srikanth Hernandez MD PCP - General Internal Medicine 11/05/17
--- OUTSIDE RECORDS SUMMARY | 2025-06-24 11:58 | XMS_ITS | Referral Summary ---
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 OF THE DEAF/HARD OF HEARING Gender Identity Not on file Sexual Orientation Not on file Last Filed Vital Signs Vital Sign Reading Time Taken Comments Blood Pressure 104/60 10/26/2021 2:54 PM TEACHER OF THE DEAF/HARD OF HEARING Pulse 70 10/26/2021 2:54 PM TEACHER OF THE DEAF/HARD OF HEARING Temperature - - Respiratory Rate - - Oxygen Saturation 99% 10/26/2021 2:54 PM TEACHER OF THE DEAF/HARD OF HEARING Inhaled Oxygen Concentration - - Weight 75.9 kg (167 lb 6.4 oz) 10/26/2021 2:54 P M TEACHER OF THE DEAF/HARD OF HEARING Height 160 cm (5' 3) 10/26/2021 2:54 PM TEACHER OF THE DEAF/HARD OF HEARING Body Mass Index 29.65 10/26/2021 2:54 PM TEACHER OF THE DEAF/HARD OF HEARING Plan of Treatment Not on file Insurance [facility] [employer] Address: [address] [address] [place] [address] Care Teams Educational Program Director Relationship Specialty Start Date End Date Srikanth Hernandez MD PCP - General Internal Medicine 11/05/17
--- OUTSIDE RECORDS SUMMARY | 2025-06-24 11:58 | XMS_ITS | Clinical Summary ---
Author Organization [facility] Address [address] [place] [address] Care Team Providers Care Chemist Intern Name Role Phone Unavailable Primary Care Provider [...]
[2025-06-24 12:09] LABS: Hematocrit 39.5 % (37.0-47.0); Hemoglobin 12.9 g/dL (12.0-15.0); Immature Granulocyte Percent A 0.6 % (0-0.5); Lymphocytes Absolute Auto 3.49 K/mm3 (0.9-3.2); Mean Corpuscular HGB Conc 32.7 g/dl (32-36); Mean Corpuscular Hemoglobin 30.8 pg (26-34); Mean Corpuscular Volume 94.3 fl (80-100); Nucleated Red Blood Cells Absolute Auto 0.000 K/mm3 (0.0-0.012); Nucleated Red Blood Cells Perc 0.0 % (0.0-0.2); Platelet Count Result 283 k/mm3 (150-375); Red Blood Count 4.19 M/mm3 (4.2-5.4); White Blood Count 12.7 K/mm3 (4.5-10.0)
[2025-06-24 12:20] LABS: INR 0.9; Prothrombin Time 11.9 Seconds (11.1-14.7)
[2025-06-24 12:21] LABS: Partial Thromboplastin Time 28.4 Seconds (22.3-36.8)
[2025-06-24 12:36] LABS: Alanine Aminotransferase 27 U/L (6-35); Albumin Level 4.1 g/dL (3.5-5.1); Alkaline Phosphatase 77 U/L (38-126); Anion Gap 7 mmol/L (4-12); Aspartate Amino Transferase 29 U/L (14-36); Bilirubin,Total 0.3 mg/dL (0.2-1.3); Blood Urea Nitrogen 14 mg/dL (7-17); Calcium 9.3 mg/dL (8.4-10.2); Carbon Dioxide 21 mmol/L (22-30); Chloride 113 mmol/L (98-107); Estimated CRCL calculation 55 ml/min; Estimated Glomerular Filt Rate > 60; Glucose 103 mg/dL (65-110); Potassium 4.4 mmol/L (3.4-5.0); Sodium 141 mmol/L (137-145); Total Protein 7.0 g/dL (6.3-8.2)
[2025-06-24 12:41] LABS: Troponin I < 0.012 ng/mL (0.000-0.034)
[2025-06-24] MEDS: SODIUM CHLORIDE 0.9% IV 500 ML 999 ML IV CONT (12:49)
[2025-06-24] MEDS: MECLIZINE HCL 25 MG TABLET PO (12:50)
[2025-06-24] MEDS: METOCLOPRAMIDE HCL INJ 10 MG/2 ML VIAL 5 MG IV PUSH (12:50)
[2025-06-24 13:01] LABS: Add Urine Microscopic? YES; Appearance Urine Clear (Clear); Glucose Urine UA Negative (Negative); Leukocyte Esterase Ur Trace LEU/UL (Negative); Nitrate Urine Negative (Negative); Non Pathogenic Casts 0-2; Specific Grav Ur 1.018 (1.001-1.035)
--- NOTE | 2025-06-24 13:38 | ED_ITS ---
HPI - General Adult General Chief complaint: Weakness Stated complaint: near syncopy Time Seen by Provider: 06/24/25 12:07 Source: patient Mode of arrival: wheelchair Limitations: no limitations History of Present Illness HPI narrative: 65-year-old with history/of hypertension, hyperlipidemia, TIA here with a complains of sudden onset of dizziness while she was at work.. Patient's she states that she turned while taking the vital signs on the patient started having the dizzy spell or she denies having any headache or chest pain no shortness of breath Onset (ago): hour(s) (1) Radiation: non-radiation Severity: moderate Pain Consistency: now resolved Relieving factors: none Exacerbating factors: movement Associated symptoms: denies other symptoms Related Data Home Medications ?Medication ?Instructions ?Recorded ?Confirmed ?Last Taken ?Type alprazolam 0.5 mg tablet 1 mg PO TID PRN anxiety 01/09/21 04/16/25 08/06/24 History Allergies Allergy/AdvReac Type Severity Reaction Status Date / Time No Known Allergies Allergy Verified 02/16/25 15:29 Review of Systems 2 Review of Systems: All systems reviewed & are unremarkable except as noted in HPI and below Constitutional: Constitutional: Reports no additional constitutional complaints Eyes: Eyes: Reports no additional eye complaints ENT: Reports system reviewed and no additional complaints, except as documented Cardiovascular: Cardiovascular: Reports no additional cardiovascular complaints Respiratory: Respiratory: Reports no additional respiratory complaints Gastrointestinal: Gastrointestinal: Reports no additional gastrointestinal complaints Musculoskeletal: Musculoskeletal: Reports no additional musculoskeletal complaints [facility] Past Medical History Medical History (Updated 06/24/25 @ 13:39 by Godwin Crews MD) Pain in left shoulder Lumbar stenosis with neurogenic claudication Gastroesophageal reflux disease Irritable bowel syndrome HTN (hypertension) HLD (hyperlipidemia) TIA (transient ischemic attack) 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 Left carpal tunnel syndrome Ataxia Tobacco use disorder Anxiety Surgical History Surgical History History of cholecystectomy (2008) History of benign breast biopsy (06/26/18) History of laparoscopy (11/21/13) History of stress incontinence procedure using tension free vaginal tape (11/21/13) History of esophagogastroduodenoscopy (09/10/09) History of bilateral salpingo-oophorectomy (09/01/03) History of hysterectomy (1989) Family History Family History Father Cirrhosis Alcoholism Mother Alcoholism Cancer Hypertension Daughter Depression Grandparent Depression Other Cerebrovascular accident Family history of alcoholism Family history of cardiovascular disease Family history of malignant neoplasm Family history of malignant neoplasm of ovary Social History Social History Social History: Surrogate medical decision maker: Irineo Chi (spouse) or Jose Díaz (son). Code status: Full code. Smoking packs per day: 1 Smoking cigarettes per day: 20.0 Years smoked: 40 Smoking pack-years: 40.00 Smoking status: Current every day smoker Tobacco type: cigarettes Alcohol intake: current Drinks per week: 1 Substance use: never Substance use type: does not use Do You Feel Safe in your Home?: Yes Lack of Transportation: No Lack of Food: Sometimes True Current Housing: I Have Housing Concerned About Future Housing: No Difficulty Paying Gas/Electric Bills: No Difficulty Paying for Meds: No Currently Unemployed: No Education: High School Diploma/GED Difficulty w/ Childcare or Family Care: No Living arrangements: with family Additional living arrangements comments: Lives with spouse in [place]. 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 Gender identity (if verbalized by the patient): Female Spiritual care concerns: No Exam 2 Narrative: GENERAL: Well-appearing, well-nourished, and in no acute distress. HEAD: Normocephalic, atraumatic. EYES: PERRLA and EOMI. ENT: Nares clear, no rhinorrhea or epistaxis. Mucous membranes moist. NECK: Supple. CHEST: Clear to auscultation. No respiratory distress. HEART: Regular rate and rhythm. No murmur heard. Normal peripheral pulses. ABDOMEN: Soft, nontender, nondistended, normal active bowel sounds. EXTREMITIES: Normal range of motion. No edema. SKIN: Warm, dry, no rash. NEURO: No focal deficits. Alert and oriented x3. PSYCH: Normal mood and affect. Course Vital Signs Vital signs: Vital Signs Temperature 36.8 C 06/24/25 11:45 Pulse Rate 70 06/24/25 11:45 Respiratory Rate 16 06/24/25 11:45 Blood Pressure 147/82 H 06/24/25 11:45 Pulse Oximetry 100 06/24/25 11:45 Oxygen Delivery Room Air 06/24/25 11:45 Temperature 36.8 C 06/24/25 11:45 Pulse Rate 70 06/24/25 11:45 Respiratory Rate 16 06/24/25 11:45 Blood Pressure 147/82 H 06/24/25 11:45 Pulse Oximetry 100 06/24/25 11:45 Oxygen Delivery Room Air 06/24/25 11:45 Medical Decision Making MDM Narrative Medical decision making narrative: Patient feeling much better after IV fluids and meclizine and Reglan. Informed her about the lab work, EKG findings. She feels much better, feels comfortable going home Differential Diagnosis Differential Diagnosis: CVA, just benign positional vertigo, orthostatic hypotension Medical Records Medical records reviewed: Yes I reviewed the external patient's medical records. Vital Signs Vital Signs: Vital Signs Temperature 36.8 C 06/24/25 11:45 Pulse Rate 70 06/24/25 11:45 Respiratory Rate 16 06/24/25 11:45 Blood Pressure 147/82 H 06/24/25 11:45 Pulse Oximetry 06/24/25 11:45 Oxygen Delivery Room Air 06/24/25 11:45 Temperature 36.8 C 06/24/25 11:45 Pulse Rate 70 06/24/25 11:45 Respiratory Rate 16 06/24/25 11:45 Blood Pressure 147/82 H 06/24/25 11:45 Pulse Oximetry 06/24/25 11:45 Oxygen Delivery Room Air 06/24/25 11:45 Lab Data Lab results reviewed: Yes I reviewed the patient's lab results. 06/24/25 11:56 06/24/25 11:56 Labs: Lab Results 06/24/25 06/24/25 06/24/25 Range/Units 11:55 11:56 12:53 WBC 12.7 H (4.5-10.0) K/mm3 RBC 4.19 L (4.2-5.4) M/mm3 Hgb 12.9 (12.0-15.0) g/dL Hct 39.5 (37.0-47.0) % MCV 94.3 (80-100) fl MCH 30.8 (26-34) pg MCHC 32.7 (32-36) g/dl RDW 13.8 (11.5-14.5) % Plt Count 283 (150-375) k/mm3 MPV 10.1 (7.4-10.4) fl Immature Gran % (Auto) 0.6 H (0-0.5) % Neut % (Auto) 63.8 (45.5-73.1) % Lymph % (Auto) 27.6 (18.3-44.2) % [place] % (Auto) 5.5 (2.6-8.5) % Eos % (Auto) 1.8 (0-4.4) % Baso % (Auto) 0.7 (0.2-1.2) % Lymph # (Auto) 3.49 H (0.9-3.2) K/mm3 [place] # (Auto) 0.7 H (0.1-0.6) K/mm3 Eos # (Auto) 0.2 (0-0.3) K/mm3 Baso # (Auto) 0.1 (0.0-0.1) K/mm3 Abs Immat Gran (auto) 0.07 H (0.00-0.031) K/mm3 Absolute Neuts (auto) 8.1 H (1.3-6.7) K/mm3 Absolute Nucleated RBC 0.000 (0.0-0.012) K/mm3 Nucleated RBC % 0.0 (0.0-0.2) % PT 11.9 (11.1-14.7) Seconds INR 0.9 APTT 28.4 (22.3-36.8) Seconds Sodium 141 (137-145) mmol/L Potassium 4.4 (3.4-5.0) mmol/L Chloride 113 H (98-107) mmol/L Carbon Dioxide 21 L (22-30) mmol/L Anion Gap 7 (4-12) mmol/L BUN 14 (7-17) mg/dL Creatinine 0.85 (0.7-1.0) mg/dL Estim Creat Clear Calc 55 ml/min Estimated GFR > 60 (59 - ) Glucose 103 (65-110) mg/dL Calcium 9.3 (8.4-10.2) mg/dL Total Bilirubin 0.3 (0.2-1.3) mg/dL AST 29 (14-36) U/L ALT 27 (6-35) U/L Alkaline Phosphatase 77 (38-126) U/L Troponin I < 0.012 (0.000-0.034) ng/mL Total Protein 7.0 (6.3-8.2) g/dL Albumin 4.1 (3.5-5.1) g/dL Urine Color Yellow (Yellow) Urine Appearance Clear (Clear) Urine pH 7.0 (5.0-9.0) Ur Specific [place] 1.018 (1.001-1.035) Urine Protein Negative (Negative) mg/dL Urine Glucose (UA) Negative (Negative) mg/dL Urine Ketones Negative (Negative) mg/dL Ur Blood (Man) Negative (Negative) Urine Nitrate Negative (Negative) Urine Bilirubin Negative (Negative) Urine Urobilinogen 1.0 (<2.0) mg/dL Leukocyte Esterase Rfl Trace H (Negative) DREW/UL Urine RBC 0-2 (0-2) /hpf Urine WBC 0-5 (0-3) /hpf Ur Squamous Epith Cells None seen (Few) /hpf Urine Bacteria None seen /hpf Urine Casts 0-2 ECG Data EKG #1: ECG completion date: 06/24/25 ECG completion time: 11:49 EKG Interpretation: normal rate (62), sinus rhythm, no ectopy, normal QRS, normal QT and NL axis Discharge Plan Discharge Clinical Impression: Benign paroxysmal positional vertigo Qualifiers: Laterality: unspecified laterality Qualified Code(s): H81.10 - Benign paroxysmal vertigo, unspecified ear Patient Disposition: Home Condition: Stable Instructions: Benign Paroxysmal Positional Vertigo (DC) Patient Language: Citizen Of [place] Prescriptions: New meclizine 12.5 mg tablet 12.5 mg PO TID PRN (Reason: dizziness) Qty: 20 0RF No Action alprazolam 0.5 mg tablet 1 mg PO TID PRN (Reason: anxiety) aspirin [Children's Aspirin] 81 mg Tablet,Chewable 81 mg PO EVERY OTHER DAY 365 Days Qty: 183 0RF acetaminophen [Tylenol Extra Strength] 500 mg tablet 1,000 mg PO TID PRN (Reason: pain) Qty: 30 0RF clopidogrel 75 mg Tablet 75 mg PO QAM 30 Days Qty: 30 0RF atorvastatin [Lipitor] 40 mg tablet 40 mg PO QHS Qty: 90 1RF Follow-up/Referrals: Srikanth Hernandez MD [Primary Care Provider] - Time of Disposition: 13:40
[2025-06-24 14:00] VITALS: BP 131/66; PULSE 70; RESP 16; O2SAT 100
== END 2025-06-24 14:00 | disposition home or self-care (01) ==
PROVIDERS: Emergency Medicine; Emergency Provider Family Medicine; PCP Internal Medicine
DX: H81.10 Benign paroxysmal vertigo, unspecified ear (principal); I10 Essential (primary) hypertension; E78.5 Hyperlipidemia, unspecified; K21.9 Gastro-esophageal reflux disease without esophagitis; K58.9 Irritable bowel syndrome, unspecified; F41.9 Anxiety disorder, unspecified; F17.210 Nicotine dependence, cigarettes, uncomplicated; Z86.73 Personal history of transient ischemic attack (TIA), and cerebral infarction without residual deficits; Z90.49 Acquired absence of other specified parts of digestive tract; Z90.722 Acquired absence of ovaries, bilateral; Z90.79 Acquired absence of other genital organ(s); Z90.710 Acquired absence of both cervix and uterus; Z79.82 Long term (current) use of aspirin; Z79.02 Long term (current) use of antithrombotics/antiplatelets; Z79.899 Other long term (current) drug therapy
CPT/HCPCS: 36415; 80053; 81001; 84484; 85025; 85610; 85730; 93005; 96361; 96374; 99284; A9270; J2765; J7040